=== PATIENT | female | born 1955 | race Caucasian/White ===

== ENCOUNTER → 2016-12-15 | Outpatient (CLI) | payer MEDICAID ==
[2016-12-15 10:36] VITALS: BP 180/89; PULSE 78; RESP 16; TEMP 98; BMI 34.3
[2016-12-15 12:58] LABS: CH 31.4; CHCM 33.4; HCT 41.3 % (34.0-46.0); HDW 2.29; HGB 13.4 gm/dL (11.4-16.0); MCH 30.5 pg (25.0-35.0); MCHC 32.3 g/dL (31.0-37.0); MCV 94.4 fL (80.0-100.0); Mean Platelet Volume 8.2; RBC 4.38 m/uL (3.80-5.40); RDW 13.1 % (11.5-15.5); WBC 7.1 k/uL (3.8-10.6)
[2016-12-15 13:06] LABS: Partial Thromboplastin Time 23.2 sec (22.0-30.0); Prothrombin Time 10.1 sec (9.0-12.0)
[2016-12-15 13:11] LABS: ALT 33 U/L (9-52); AST 20 U/L (14-36); Alkaline Phosphatase 113 U/L (38-126); Anion Gap 9 mmol/L; Blood Urea Nitrogen 16 mg/dL (7-17); Calcium 10.4 mg/dL (8.4-10.2); Carbon Dioxide 29 mmol/L (22-30); Chloride 107 mmol/L (98-107); Cholesterol 161 mg/dL (<200); Glucose 95 mg/dL (74-99); HDL Cholesterol 53 mg/dL (40-60); Iron 171 ug/dL (37-170); Magnesium 2.1 mg/dL (1.6-2.3); Non-African American GFR(MDRD) >60 (>60 ml/min/1.73 sqM); Phosphorous 3.8 mg/dL (2.5-4.5); Potassium 4.9 mmol/L (3.5-5.1); Sodium 145 mmol/L (137-145); Total Bilirubin 0.6 mg/dL (0.2-1.3); Total Protein 7.1 g/dL (6.3-8.2); Triglycerides 158 mg/dL (<150)
[2016-12-15 13:22] LABS: % Iron Saturation 57.4 % (20-50); Prealbumin 24 mg/dL (18-36); Total Iron Binding Capacity 298 ug/dL (265-497)
[2016-12-15 13:29] LABS: Hemoglobin A1C 5.4 % (4.2-6.1)
[2016-12-15 14:18] LABS: Vitamin B12 857 pg/mL (239-931)
[2016-12-20 18:36] LABS: Selenium 135 mcg/L (63-160)
--- NOTE | 2017-01-12 21:33 | P.PN ---
Progress Note - Text DATE OF SERVICE: 12/15/2016. CHIEF COMPLAINT: History of gastric bypass. HISTORY OF PRESENT ILLNESS: Zaynab Vazquez is a 61-year-old female who is status post Gregg-en-Y gastric bypass 06/15/2016. She is now 6 months out. At her height of 5 feet 4 inches, her ideal body weight is 144 pounds. Today she comes in weighing 200 pounds. Initially she was 260 pounds. She has maintained a 60 pound weight loss. Body mass index is reduced from 44.7 down to 34.4. BMI point reduction is 10. She has lost 13.2 pounds since her last visit 3 months ago. Percent excess weight loss is 52%. She reports losing her hair. She also reports generalized fatigue. Now she presents for further evaluation and management. PAST MEDICAL HISTORY: 1. Osteoarthritis. 2. Hypertension. 3. Dyslipidemia. 4. Irritable bowel syndrome. 5. Leukocytosis. 6. Fibromyalgia. 7. Stress urinary incontinence. 8. Hypothyroidism. 9. Obstructive sleep apnea. PAST SURGICAL HISTORY: 1. Excision of a skin lesions. 2. Partial thyroidectomy. 3. Tonsillectomy and adenoidectomy. 4. Cholecystectomy. 5. Umbilical hernia repair with mesh. 6. Colonoscopy. 7. Hemorrhoidectomy. 8. D&C. 9. Tubal ligation. 10. EGD 11. Right knee replacement. 12. Left ankle reconstruction. 13. Gregg-en-Y gastric bypass. MEDICATIONS: 1. Multivitamin. 2. Calcium citrate. 3. Iron. 4. Vitamin D. 5. Synthroid. 6. Celexa. 7. Ziac. ALLERGIES: Denies. SOCIAL HISTORY: Denies current tobacco use. FAMILY HISTORY: Denies any family history of cancers. Denies any Crohns disease or colitis in her family. She denies any lupus in her family. REVIEW OF SYSTEMS: CONSTITUTIONAL: Initial weight 260 pounds. Present weight of 200 pounds. Maintained weight loss 60 pounds in the last month. 52% excess weight. Body mass index reduced from 44.7 down to 34.4. Total BMI point reduction of 10 points. ENDOCRINE: She denies any blood sugar glucose intolerance. CARDIOVASCULAR: Resolution of hypertension. MUSCULOSKELETAL: Improved osteoarthritis of lower back including hips and knees. RESPIRATORY: Resolved obstructive sleep apnea. GASTROINTESTINAL: No reports of dumping syndrome. No reports of active gastroesophageal reflux disease. HEENT: Denies any troubles with vision other than wearing glasses. Wears caps and crowns. Denies any hearing problems. ENDOCRINE: Has hypothyroidism. Denies any active blood sugar glucose intolerance. : Denies any problems with bleeding between menses. She is postmenopausal, however. No reports of increasing in her frequency. NEURO: Denies any headaches or seizure disorders. PSYCH: Has history of depression; however, without suicidal ideation. HEMATOLOGIC: Denies any abnormal bruising or bleeding. Denies any prior history of DVT. PHYSICAL EXAM: VITAL SIGNS: 97.0, 78, 16, 180/89; 5 feet 4 inches, 200 pounds. Body mass index 34.4. ABDOMEN: Soft, nontender, nondistended. Mild hyperemia identified with panniculitis. GENERAL: Well-developed female in no acute distress. MUSCULOSKELETAL: No clubbing, cyanosis, or edema. HEENT: No scleral icterus. Extraocular movements grossly intact. Head is atraumatic and normocephalic. NECK: Supple without lymphadenopathy. CHEST: Unlabored respirations, equal bilateral excursions. CARDIOVASCULAR: Regular rate. NEURO: No focal or lateralizing signs. PSYCH: Appropriate affect. Alert and oriented to person, place, and time. LABS: Calcium is 10.4. Iron elevated at 171. Percent iron saturation elevated at 77.4. Triglycerides elevated at 158. ASSESSMENT: 1. Morbid obesity due to excess calories. 2. Body mass index is reduced from 44.7 down to 34.4. 3. Status post Gregg-en-Y gastric bypass. 4. Essential hypertension mild, resolved. 5. Obstructive sleep apnea, improved. 6. Secondary hyperparathyroidism. 7. Hypothyroidism. 8. Depression. 9. Dyslipidemia. 10. Osteoarthritis of the knee right knee. 11. Left ankle osteoarthritis. 12. Dietary surveillance and counseling. 13. Irritable bowel syndrome. 14. Fibromyalgia. 15. Stress urinary incontinence. 16. History of chronic diarrhea following cholecystectomy. 17. Secondary hyperparathyroidism. 18. Elevated calcium. 19. Elevated iron. 20. Hypertriglyceridemia. PLAN: 1. She has completed a bariatric metabolic panel. 2. She has hair loss and I have recommended taking biotin. 3. On exam, she has panniculitis for which nystatin powder was written on her behalf. 4. She reports generalized fatigue and this may also demonstrate some recurrent features of obstructive sleep apnea which may need further treatment. 5. Recommended follow-up 9 months postop otherwise in February 2017.
== END | disposition home or self-care (01) ==
LOC: BARWHC3 09:49
PROVIDERS: ATTEND Surgery Plastic and Reconstructive Surgery
DX: Z48.815 Encounter for surgical aftercare following surgery on the digestive system (principal); Z71.3 Dietary counseling and surveillance; E66.01 Morbid (severe) obesity due to excess calories; Z68.34 Body mass index [BMI] 34.0-34.9, adult; Z98.84 Bariatric surgery status
CPT/HCPCS: 80053; 80061; 82306; 82525; 82607; 82728; 82746; 83036; 83540; 83550; 83735; 83970; 84100; 84134; 84255; 84425; 84443; 84590; 84630; 85027; 85610; 85730; 99211

== ENCOUNTER → 2017-01-05 | Outpatient (CLI) | payer MEDICAID ==
[2017-01-05 10:57] VITALS: BP 137/78; PULSE 69; RESP 16; TEMP 98; BMI 34.4
--- NOTE | 2017-02-10 20:37 | P.PN ---
Progress Note - Text DATE OF SERVICE: 01/05/2017 CHIEF COMPLAINT: Follow-up gastric bypass. HISTORY OF PRESENT ILLNESS: Zaynab Gale is a 61-year-old female status post Gregg-en-Y gastric bypass on 06/15/2016. At her height of 5 feet 4 inches, her ideal body weight is 144 pounds. Today she comes with a body mass index of 34.4. Her highest weight in the program is 260 pounds. Today she comes in weighing 200 pounds. She has maintained 60 pounds weight loss in the last six months. Percent excess weight loss is 62%. She is still 56 pounds overweight. Initial body mass index is 44.7. She has complete resolution of obstructive sleep apnea, including diabetes type 2. Osteoarthritis is mildly improved. She denies any dysphagia. She reports troubles with her skin for her panniculitis. Her personal goal is to get down to at least 130 pounds. Now she presents for further evaluation and management. PAST MEDICAL HISTORY: 1. Osteoarthritis. 2. Hypertension. 3. Dyslipidemia. 4. Irritable bowel syndrome. 5. Leukocytosis. 6. Fibromyalgia. 7. Stress urinary incontinence. 8. Hypothyroidism. 9. Obstructive sleep apnea. PAST SURGICAL HISTORY: 1. Excision of a skin lesions. 2. Partial thyroidectomy. 3. Tonsillectomy and adenoidectomy. 4. Cholecystectomy. 5. Umbilical hernia repair with mesh. 6. Colonoscopy. 7. Hemorrhoidectomy. 8. D&C. 9. Tubal ligation. 10. EGD 11. Right knee replacement. 12. Left ankle reconstruction. 13. Status post Gregg-en-Y gastric bypass. MEDICATIONS: 1. Nystatin powder. 2. Multivitamin. 3. Synthroid. 4. Iron. 5. Celexa. 6. Vitamin D. 7. Calcium citrate. 8. Ziac. ALLERGIES: Denies. SOCIAL HISTORY: Denies current tobacco use. FAMILY HISTORY: Denies any family history of cancers. Denies any Crohns disease or colitis in her family. She denies any lupus in her family. REVIEW OF SYSTEMS: CONSTITUTIONAL: Maintained weight loss is 60 pounds. Percent excess weight loss is 52%. Highest weight loss of 260 pounds. [place] body weight of 144 pounds. At her height of 5 feet 4 inches, her ideal body weight is 144 pounds. Body mass index is 34.4. Today she comes in weighing 200 pounds. She has maintained 60 pounds weight loss in the last six months. She is 56 pounds overweight. Initial body mass index is 44.7. RESPIRATORY: Resolved obstructive sleep apnea. MUSCULOSKELETAL: Improvement in osteoarthritis. CARDIOVASCULAR: Decreased dose regarding her hypertension. GASTROINTESTINAL: No reports of dumping syndrome. No reports of food allergies. HEENT: Denies any troubles with vision other than wearing glasses. Wears caps and crowns. Denies any hearing problems. ENDOCRINE: Has hypothyroidism. Denies any active blood sugar glucose intolerance. : Denies any problems with bleeding between menses. She is postmenopausal, however. No reports of increasing in her frequency. NEURO: Denies any headaches or seizure disorders. PSYCH: Has history of depression; however, without suicidal ideation. HEMATOLOGIC: Denies any abnormal bruising or bleeding. Denies any prior history of DVT. PHYSICAL EXAM: VITAL SIGNS: 98.0, 69, 16, 137/78, 5 feet 4 inches; 200 pounds. Body mass index is 34.4. ABDOMEN: Soft. No palpable incisional hernias. MUSCULOSKELETAL: No clubbing, cyanosis, or edema. GENERAL: Well-developed female in no acute distress. HEENT: No scleral icterus. Extraocular movements grossly intact. Head is atraumatic and normocephalic. NECK: Supple without lymphadenopathy. CHEST: Unlabored respirations, equal bilateral excursions. CARDIOVASCULAR: Regular rate. NEURO: No focal or lateralizing signs. PSYCH: Appropriate affect. Alert and oriented to person, place, and time. ASSESSMENT: 1. Morbid obesity due to excess calories. 2. Body mass index reduced from 44.7 down to 34.4. 3. Status post Gregg-en-Y gastric bypass. 4. Essential hypertension mild, resolved. 5. Obstructive sleep apnea, improved. 6. Secondary hyperparathyroidism. 7. Hypothyroidism. 8. Depression. 9. Dyslipidemia. 10. Osteoarthritis of the knee right knee. 11. Left ankle osteoarthritis. 12. Dietary surveillance and counseling. 13. Irritable bowel syndrome. 14. Fibromyalgia. 15. Stress urinary incontinence. 16. History of chronic diarrhea following cholecystectomy. 17. Secondary hyperparathyroidism. 18. Osteoarthritis bilateral feet improved. 19. Osteoarthritis bilateral hips improved. 20. Diabetes type 2, resolved. 21. Hypertensive heart disease, improved. PLAN: 1. Recommend bariatric metabolic panel. 2. With her plateau, this is to be expected as she is 6 months out. 3. I have gone over dietary surveillance and counseling where she is eating moderate amount of carbs. 4. Also may benefit from re-evaluation with bariatric dietitian. ADDENDUM: LABS: Hemoglobin normal at 13.4. Hemoglobin A1c is normal at 5.4%. Calcium elevated 10.4. Iron was elevated at 171. Percent iron saturation elevated at 57.4. Triglycerides elevated at 158. No evidence of nutritional deficiencies. Overall, her bariatric metabolic panel demonstrates excellent nutrition. No additional supplements need at this time. Recommend follow-up at her 9 month postop visit; otherwise for March 2017.
== END | disposition home or self-care (01) ==
LOC: BARWHC3 10:32
PROVIDERS: ATTEND Surgery Plastic and Reconstructive Surgery
DX: Z48.815 Encounter for surgical aftercare following surgery on the digestive system (principal); E66.01 Morbid (severe) obesity due to excess calories; Z68.34 Body mass index [BMI] 34.0-34.9, adult; Z79.899 Other long term (current) drug therapy; Z98.84 Bariatric surgery status; G47.33 Obstructive sleep apnea (adult) (pediatric); M19.072 Primary osteoarthritis, left ankle and foot; M19.071 Primary osteoarthritis, right ankle and foot; I11.9 Hypertensive heart disease without heart failure; Z71.3 Dietary counseling and surveillance; M79.3 Panniculitis, unspecified
CPT/HCPCS: 99211

== ENCOUNTER → 2017-03-16 | Outpatient (CLI) | payer MEDICAID ==
[2017-03-16 10:08] VITALS: BP 137/83; PULSE 60; RESP 20; TEMP 97.9; BMI 32.9
[2017-03-16 11:31] LABS: CH 32.2; CHCM 33.6; HCT 44.6 % (34.0-46.0); HDW 2.15; HGB 14.3 gm/dL (11.4-16.0); MCH 30.7 pg (25.0-35.0); MCV 96.2 fL (80.0-100.0); Mean Platelet Volume 7.8; RBC 4.64 m/uL (3.80-5.40); WBC 8.5 k/uL (3.8-10.6)
[2017-03-16 11:32] LABS: Partial Thromboplastin Time 22.7 sec (22.0-30.0); Prothrombin Time 10.1 sec (9.0-12.0)
[2017-03-16 11:38] LABS: ALT 39 U/L (9-52); AST 23 U/L (14-36); Alkaline Phosphatase 118 U/L (38-126); Anion Gap 11 mmol/L; Blood Urea Nitrogen 23 mg/dL (7-17); Calcium 10.2 mg/dL (8.4-10.2); Carbon Dioxide 26 mmol/L (22-30); Chloride 104 mmol/L (98-107); Cholesterol 164 mg/dL (<200); Glucose 91 mg/dL (74-99); HDL Cholesterol 56 mg/dL (40-60); Iron 149 ug/dL (37-170); Magnesium 1.9 mg/dL (1.6-2.3); Non-African American GFR(MDRD) >60 (>60 ml/min/1.73 sqM); Phosphorous 3.8 mg/dL (2.5-4.5); Potassium 4.3 mmol/L (3.5-5.1); Sodium 141 mmol/L (137-145); Total Bilirubin 0.6 mg/dL (0.2-1.3); Total Protein 6.9 g/dL (6.3-8.2); Triglycerides 158 mg/dL (<150)
[2017-03-16 11:50] LABS: Prealbumin 25 mg/dL (18-36); Total Iron Binding Capacity 298 ug/dL (265-497)
[2017-03-16 12:44] LABS: Vitamin B12 799 pg/mL (239-931)
[2017-03-16 13:12] LABS: Hemoglobin A1C 5.2 % (4.2-6.1)
[2017-03-21 16:17] LABS: Selenium 141 mcg/L (63-160)
--- NOTE | 2017-03-29 17:19 | P.PN ---
Progress Note - Text DATE OF SERVICE: 03/16/2017 CHIEF COMPLAINT: Follow-up gastric bypass. HISTORY OF PRESENT ILLNESS: Zaynab Gale is a 61-year-old female status post Gregg-en-Y gastric bypass on 06/15/2016. Since her last visit, she lost another 9 pounds in 2 months. She reports exercising more. She is also eating more. She is drinking mostly water. Now she presents for her 9 month follow-up. She also comes in with concern of panniculitis. At her height of 5 feet 4 inches, her ideal body weight is 144 pounds. Today she comes with a body mass index of 32.9. Her highest weight in the program is 260 pounds. Today she comes in weighing 191 pounds. She has maintained 69 pounds weight loss. Percent excess weight loss is 59%. She is 47 pounds overweight. Initial body mass index is 44.7. She has complete resolution of obstructive sleep apnea, including diabetes type 2. Osteoarthritis is improved. She denies any dysphagia. PAST MEDICAL HISTORY: 1. Osteoarthritis. 2. Hypertension. 3. Dyslipidemia. 4. Irritable bowel syndrome. 5. Leukocytosis. 6. Fibromyalgia. 7. Stress urinary incontinence. 8. Hypothyroidism. 9. Obstructive sleep apnea. PAST SURGICAL HISTORY: 1. Excision of a skin lesions. 2. Partial thyroidectomy. 3. Tonsillectomy and adenoidectomy. 4. Cholecystectomy. 5. Umbilical hernia repair with mesh. 6. Colonoscopy. 7. Hemorrhoidectomy. 8. D&C. 9. Tubal ligation. 10. EGD 11. Right knee replacement. 12. Left ankle reconstruction. 13. Status post Gregg-en-Y gastric bypass. MEDICATIONS: 1. Nystatin powder. 2. Multivitamin. 3. Synthroid. 4. Iron. 5. Celexa. 6. Vitamin D. 7. Calcium citrate. 8. Ziac. ALLERGIES: Denies. SOCIAL HISTORY: Denies current tobacco use. FAMILY HISTORY: Denies any family history of cancers. Denies any Crohns disease or colitis in her family. She denies any lupus in her family. REVIEW OF SYSTEMS: CONSTITUTIONAL: At her height of 5 feet 4 inches, her ideal body weight is 144 pounds. Today she comes with a body mass index of 32.9. Her highest weight in the program is 260 pounds. Today she comes in weighing 191 pounds. She has maintained 69 pounds weight loss. Percent excess weight loss is 59%. She is 47 pounds overweight. Initial body mass index is 44.7. RESPIRATORY: Resolved obstructive sleep apnea. No pneumonia. MUSCULOSKELETAL: Improvement in osteoarthritis. Improve lower back pain. CARDIOVASCULAR: Decreased dose regarding her hypertension. No heart attack. GASTROINTESTINAL: No reports of dumping syndrome. No reports of food allergies. HEENT: Denies any troubles with vision other than wearing glasses. Wears caps and crowns. Denies any hearing problems. ENDOCRINE: Has hypothyroidism. Denies any active blood sugar glucose intolerance. : Denies any problems with bleeding between menses. She is postmenopausal, however. No reports of increasing in her frequency. NEURO: Denies any headaches or seizure disorders. PSYCH: Has history of depression; however, without suicidal ideation. HEMATOLOGIC: Denies any abnormal bruising or bleeding. Denies any prior history of DVT. PHYSICAL EXAM: VITAL SIGNS: 5 feet 4 inches; 191 pounds. Body mass index is 32.9 Vital Signs Temp 97.9 F 03/16/17 09:59 Pulse 60 03/16/17 09:59 Resp 20 03/16/17 09:59 BP 137/83 03/16/17 09:59 Pulse Ox ABDOMEN: Soft. No palpable incisional hernias. Nontender. MUSCULOSKELETAL: No clubbing, cyanosis, or edema. GENERAL: Well-developed female in no acute distress. HEENT: No scleral icterus. Extraocular movements grossly intact. Head is atraumatic and normocephalic. NECK: Supple without lymphadenopathy. CHEST: Unlabored respirations, equal bilateral excursions. CARDIOVASCULAR: Regular rate. Regular rhythm. NEURO: No focal or lateralizing signs. Cranial nerves II-12 intact. PSYCH: Appropriate affect. Alert and oriented to person, place, and time. LABS: Laboratory Last Values WBC 8.5 k/uL (3.8-10.6) 03/16/17 10:55 RBC 4.64 m/uL (3.80-5.40) 03/16/17 10:55 Hgb 14.3 gm/dL (11.4-16.0) 03/16/17 10:55 Hct 44.6 % (34.0-46.0) 03/16/17 10:55 MCV 96.2 fL (80.0-100.0) 03/16/17 10:55 MCH 30.7 pg (25.0-35.0) 03/16/17 10:55 MCHC 32.0 g/dL (31.0-37.0) 03/16/17 10:55 RDW 13.0 % (11.5-15.5) 03/16/17 10:55 Plt Count 327 k/uL (150-450) 03/16/17 10:55 PT 10.1 sec (9.0-12.0) 03/16/17 10:55 INR 1.0 (<1.1) 03/16/17 10:55 APTT 22.7 sec (22.0-30.0) 03/16/17 10:55 Sodium 141 mmol/L (137-145) 03/16/17 10:55 Potassium 4.3 mmol/L (3.5-5.1) 03/16/17 10:55 Chloride 104 mmol/L (98-107) 03/16/17 10:55 Carbon Dioxide 26 mmol/L (22-30) 03/16/17 10:55 Anion Gap 11 mmol/L 03/16/17 10:55 BUN 23 mg/dL (7-17) H 03/16/17 10:55 Creatinine 0.70 mg/dL (0.52-1.04) 03/16/17 10:55 Est GFR (MDRD) Af Amer >60 (>60 ml/min/1.73 sqM) 03/16/17 10:55 Est GFR (MDRD) Non-Af >60 (>60 ml/min/1.73 sqM) 03/16/17 10:55 Glucose 91 mg/dL (74-99) 03/16/17 10:[address] Glu mg/dL 103 mg/dL 03/16/17 10:55 Hemoglobin A1c 5.2 % (4.2-6.1) 03/16/17 10:55 Calcium 10.2 mg/dL (8.4-10.2) 03/16/17 10:55 Phosphorus 3.8 mg/dL (2.5-4.5) 03/16/17 10:55 Magnesium 1.9 mg/dL (1.6-2.3) 03/16/17 10:55 Iron 149 ug/dL (37-170) 03/16/17 10:55 TIBC 298 ug/dL (265-497) 03/16/17 10:55 % Saturation 50.0 % (20-50) 03/16/17 10:55 Ferritin 102 ng/mL (11-264) 03/16/17 10:55 Total Bilirubin 0.6 mg/dL (0.2-1.3) 03/16/17 10:55 AST 23 U/L (14-36) 03/16/17 10:55 ALT 39 U/L (9-52) 03/16/17 10:55 Alkaline Phosphatase 118 U/L (38-126) 03/16/17 10:55 Total Protein 6.9 g/dL (6.3-8.2) 03/16/17 10:55 Albumin 4.3 g/dL (3.5-5.0) 03/16/17 10:55 Prealbumin 25 mg/dL (18-36) 03/16/17 10:55 Triglycerides 158 mg/dL (<150) H 03/16/17 10:55 Cholesterol 164 mg/dL (<200) 03/16/17 10:55 LDL Cholesterol, Calc 76 mg/dL (0-99) 03/16/17 10:55 HDL Cholesterol 56 mg/dL (40-60) 03/16/17 10:55 Vitamin A 57 ug/dL (38-106) 03/16/17 10:55 Vitamin B1 57 ug/L (38-122) 03/16/17 10:55 Vitamin B12 799 pg/mL (239-931) 03/16/17 10:55 Vitamin D 25-Hydroxy 48.4 ng/mL (30.0-100.0) 03/16/17 10:55 Folate 13.00 ng/mL (>2.75) 03/16/17 10:55 TSH 1.570 mIU/L (0.465-4.680) 03/16/17 10:55 PTH Intact 74.5 pg/mL (14.0-72.0) H 03/16/17 10:55 Copper 1200 ug/L (810-1990) 03/16/17 10:55 Selenium 141 mcg/L (63-160) 03/16/17 10:55 Zinc 78 ug/dL (60-130) 03/16/17 10:55 ASSESSMENT: 1. Morbid obesity due to excess calories. 2. Body mass index reduced from 44.7 down to 32.9. 3. Status post Gregg-en-Y gastric bypass. 4. Essential hypertension, resolved. 5. Obstructive sleep apnea, resolved. 6. Secondary hyperparathyroidism. 7. Hypothyroidism. 8. Depression. 9. Dyslipidemia. 10. Osteoarthritis of the right knee, improved. 11. Left ankle osteoarthritis, improved. 12. Dietary surveillance and counseling. 13. Irritable bowel syndrome. 14. Fibromyalgia. 15. Stress urinary incontinence, improved. 16. History of chronic diarrhea following cholecystectomy. 17. Diabetes type 2, resolved. 18. Osteoarthritis bilateral feet improved. 19. Osteoarthritis bilateral hips improved. PLAN: 1. Recommend bariatric metabolic panel. 2. She may undergo a blood drive per patient request. 3. Continue protein intake over 70 g. 4. On exam, she has panniculitis. Continue Nystatin powder. 5. She has elevated iron under previous and current labs. Also will benefit from blood drive. 6. Follow-up, May 2017, 1 year anniversary.
== END | disposition home or self-care (01) ==
LOC: BARWHC3 09:02
PROVIDERS: ATTEND Surgery Plastic and Reconstructive Surgery
DX: Z09 Encounter for follow-up examination after completed treatment for conditions other than malignant neoplasm (principal); Z98.84 Bariatric surgery status; E66.01 Morbid (severe) obesity due to excess calories; Z68.32 Body mass index [BMI] 32.0-32.9, adult; N25.81 Secondary hyperparathyroidism of renal origin; E03.9 Hypothyroidism, unspecified; F32.9 Major depressive disorder, single episode, unspecified; E78.5 Hyperlipidemia, unspecified; M17.11 Unilateral primary osteoarthritis, right knee; M19.072 Primary osteoarthritis, left ankle and foot; K58.9 Irritable bowel syndrome, unspecified; M79.7 Fibromyalgia; N39.46 Mixed incontinence; M16.0 Bilateral primary osteoarthritis of hip; M19.071 Primary osteoarthritis, right ankle and foot; Z79.899 Other long term (current) drug therapy; E21.1 Secondary hyperparathyroidism, not elsewhere classified; E89.1 Postprocedural hypoinsulinemia; D50.8 Other iron deficiency anemias; K90.89 Other intestinal malabsorption; E44.0 Moderate protein-calorie malnutrition; E55.9 Vitamin D deficiency, unspecified; K74.1 Hepatic sclerosis; N19 Unspecified kidney failure; K50.90 Crohn's disease, unspecified, without complications
CPT/HCPCS: 36415; 80053; 80061; 82306; 82525; 82607; 82728; 82746; 83036; 83540; 83550; 83735; 83970; 84100; 84134; 84255; 84425; 84443; 84590; 84630; 85027; 85610; 85730; 99211

== ENCOUNTER → 2017-06-01 | Outpatient (CLI) | payer MEDICAID ==
[2017-06-01 10:07] VITALS: BMI 32.8
[2017-06-01 10:30] VITALS: BP 122/78; PULSE 58; RESP 16; TEMP 98.1
[2017-06-01 12:04] LABS: CHCM 33.6; HCT 38.3 % (34.0-46.0); HDW 2.28; MCH 31.3 pg (25.0-35.0); MCHC 33.8 g/dL (31.0-37.0); MCV 92.5 fL (80.0-100.0); Mean Platelet Volume 7.5; RBC 4.14 m/uL (3.80-5.40); RDW 12.7 % (11.5-15.5); WBC 7.5 k/uL (3.8-10.6)
[2017-06-01 12:18] LABS: Partial Thromboplastin Time 23.9 sec (22.0-30.0)
[2017-06-01 12:20] LABS: ALT 38 U/L (9-52); AST 25 U/L (14-36); Alkaline Phosphatase 105 U/L (38-126); Anion Gap 7 mmol/L; Blood Urea Nitrogen 14 mg/dL (7-17); Calcium 9.9 mg/dL (8.4-10.2); Carbon Dioxide 29 mmol/L (22-30); Chloride 103 mmol/L (98-107); Cholesterol 167 mg/dL (<200); Glucose 90 mg/dL (74-99); HDL Cholesterol 50 mg/dL (40-60); Iron 155 ug/dL (37-170); Magnesium 1.9 mg/dL (1.6-2.3); Non-African American GFR(MDRD) >60 (>60 ml/min/1.73 sqM); Phosphorus 3.6 mg/dL (2.5-4.5); Potassium 3.9 mmol/L (3.5-5.1); Sodium 139 mmol/L (137-145); Total Bilirubin 0.6 mg/dL (0.2-1.3); Total Protein 6.8 g/dL (6.3-8.2)
[2017-06-01 12:28] LABS: % Iron Saturation 52.5 % (20-50); Total Iron Binding Capacity 295 ug/dL (265-497)
[2017-06-01 13:07] LABS: Vitamin B12 870 pg/mL (239-931)
[2017-06-01 18:42] LABS: Hemoglobin A1C 5.6 % (4.2-6.1)
[2017-06-07 18:31] LABS: Selenium 118 mcg/L (63-160)
--- NOTE | 2017-06-24 21:46 | P.PN ---
Progress Note - Text DATE OF SERVICE: 06/01/2017 CHIEF COMPLAINT: Follow-up gastric bypass. HISTORY OF PRESENT ILLNESS: Zaynab Gale is a 61-year-old female status post Gregg-en-Y gastric bypass on 06/15/2016. Since her last visit, she lost another 1 pounds in 3 months. Now she presents for her 1 year follow- up. She is concern for her slow weight loss. She denies abdominal pain. She does report foul-smelling flatulence. She is stress eating including eating high carbohydrate foods such as candy bars and chips. Separately, she reports severe depression with thoughts of attempted suicide. At her height of 5 feet 4 inches, her ideal body weight is 144 pounds. Today she comes with a body mass index of 32.8. Her highest weight in the program is 260 pounds. Today she comes in weighing 191 pounds. She has maintained 69 pounds weight loss. Percent excess weight loss is 60%. She is 47 pounds overweight. Initial body mass index is 44.7. She has complete resolution of obstructive sleep apnea, including diabetes type 2. Osteoarthritis is improved. PAST MEDICAL HISTORY: 1. Osteoarthritis. 2. Hypertension. 3. Dyslipidemia. 4. Irritable bowel syndrome. 5. Leukocytosis. 6. Fibromyalgia. 7. Stress urinary incontinence. 8. Hypothyroidism. 9. Obstructive sleep apnea. 10. Depression. PAST SURGICAL HISTORY: 1. Excision of a skin lesions. 2. Partial thyroidectomy. 3. Tonsillectomy and adenoidectomy. 4. Cholecystectomy. 5. Umbilical hernia repair with mesh. 6. Colonoscopy. 7. Hemorrhoidectomy. 8. D&C. 9. Tubal ligation. 10. EGD 11. Right knee replacement. 12. Left ankle reconstruction. 13. Status post Gregg-en-Y gastric bypass. MEDICATIONS: 1. Nystatin powder. 2. Multivitamin. 3. Synthroid. 4. Iron. 5. Celexa. 6. Vitamin D. 7. Calcium citrate. 8. Ziac. ALLERGIES: Denies. SOCIAL HISTORY: Denies current tobacco use. FAMILY HISTORY: Denies any family history of cancers. Denies any Crohns disease or colitis in her family. She denies any lupus in her family. REVIEW OF SYSTEMS: CONSTITUTIONAL: At her height of 5 feet 4 inches, her ideal body weight is 144 pounds. Today she comes with a body mass index of 32.8. Her highest weight in the program is 260 pounds. Today she comes in weighing 191 pounds. She has maintained 69 pounds weight loss. Percent excess weight loss is 60%. She is 47 pounds overweight. Initial body mass index is 44.7. RESPIRATORY: Resolved obstructive sleep apnea. No pneumonia. MUSCULOSKELETAL: Improvement in osteoarthritis. Improve lower back pain. CARDIOVASCULAR: Decreased dose regarding her hypertension. No heart attack. GASTROINTESTINAL: No reports of dumping syndrome. No reports of food allergies. HEENT: Denies any troubles with vision other than wearing glasses. Wears caps and crowns. Denies any hearing problems. No dysphagia. ENDOCRINE: Has hypothyroidism. Denies any active blood sugar glucose intolerance. : Denies any problems with bleeding between menses. She is postmenopausal, however. No reports of increasing in her frequency. NEURO: Denies any headaches or seizure disorders. PSYCH: Has history of depression. She reports suicidal thoughts. She had past attempts of suicide. HEMATOLOGIC: Denies any abnormal bruising or bleeding. Denies any prior history of DVT. SKIN: No rashes skin cancer. PHYSICAL EXAM: VITAL SIGNS: 5 feet 4 inches; 191 pounds. Body mass index is 32.8 Vital Signs Temp 98.1 F 06/01/17 10:25 Pulse 58 L 06/01/17 10:25 Resp 16 06/01/17 10:25 BP 122/78 06/01/17 10:25 Pulse Ox ABDOMEN: Soft. No palpable incisional hernias. Nontender. MUSCULOSKELETAL: No clubbing, cyanosis, or edema. GENERAL: Well-developed female in no acute distress. HEENT: No scleral icterus. Extraocular movements grossly intact. Head is atraumatic and normocephalic. NECK: Supple without lymphadenopathy. CHEST: Unlabored respirations, equal bilateral excursions. CARDIOVASCULAR: Regular rate. Regular rhythm. NEURO: No focal or lateralizing signs. Cranial nerves II-12 intact. PSYCH: Appropriate affect. Alert and oriented to person, place, and time. SKIN: Well perfused. Good skin turgor. LABS: Laboratory Last Values WBC 7.5 k/uL (3.8-10.6) 06/01/17 11:30 RBC 4.14 m/uL (3.80-5.40) 06/01/17 11:30 Hgb 13.0 gm/dL (11.4-16.0) 06/01/17 11:30 Hct 38.3 % (34.0-46.0) 06/01/17 11:30 MCV 92.5 fL (80.0-100.0) 06/01/17 11:30 MCH 31.3 pg (25.0-35.0) 06/01/17 11:30 MCHC 33.8 g/dL (31.0-37.0) 06/01/17 11:30 RDW 12.7 % (11.5-15.5) 06/01/17 11:30 Plt Count 327 k/uL (150-450) 06/01/17 11:30 PT 10.0 sec (9.0-12.0) 06/01/17 11:30 INR 1.0 (<1.2) 06/01/17 11:30 APTT 23.9 sec (22.0-30.0) 06/01/17 11:30 Sodium 139 mmol/L (137-145) 06/01/17 11:30 Potassium 3.9 mmol/L (3.5-5.1) 06/01/17 11:30 Chloride 103 mmol/L (98-107) 06/01/17 11:30 Carbon Dioxide 29 mmol/L (22-30) 06/01/17 11:30 Anion Gap 7 mmol/L 06/01/17 11:30 BUN 14 mg/dL (7-17) 06/01/17 11:30 Creatinine 0.70 mg/dL (0.52-1.04) 06/01/17 11:30 Est GFR (MDRD) Af Amer >60 (>60 ml/min/1.73 sqM) 06/01/17 11:30 Est GFR (MDRD) Non-Af >60 (>60 ml/min/1.73 sqM) 06/01/17 11:30 Glucose 90 mg/dL (74-99) 06/01/17 11:[address] Glu mg/dL 114 mg/dL 06/01/17 11:30 Hemoglobin A1c 5.6 % (4.2-6.1) 06/01/17 11:30 Calcium 9.9 mg/dL (8.4-10.2) 06/01/17 11:30 Phosphorus 3.6 mg/dL (2.5-4.5) 06/01/17 11:30 Magnesium 1.9 mg/dL (1.6-2.3) 06/01/17 11:30 Iron 155 ug/dL (37-170) 06/01/17 11:30 TIBC 295 ug/dL (265-497) 06/01/17 11:30 % Saturation 52.5 % (20-50) H 06/01/17 11:30 Ferritin 139.8 ng/mL (10.0-291.0) 06/01/17 11:30 Total Bilirubin 0.6 mg/dL (0.2-1.3) 06/01/17 11:30 AST 25 U/L (14-36) 06/01/17 11:30 ALT 38 U/L (9-52) 06/01/17 11:30 Alkaline Phosphatase 105 U/L (38-126) 06/01/17 11:30 Total Protein 6.8 g/dL (6.3-8.2) 06/01/17 11:30 Albumin 4.2 g/dL (3.5-5.0) 06/01/17 11:30 Prealbumin 24.0 mg/dL (18.0-42.0) 06/01/17 11:30 Triglycerides 142 mg/dL (<150) 06/01/17 11:30 Cholesterol 167 mg/dL (<200) 06/01/17 11:30 LDL Cholesterol, Calc 89 mg/dL (0-99) 06/01/17 11:30 HDL Cholesterol 50 mg/dL (40-60) 06/01/17 11:30 Vitamin A 57 ug/dL (38-106) 06/01/17 11:30 Vitamin B1 63 ug/L (38-122) 06/01/17 11:30 Vitamin B12 870 pg/mL (239-931) 06/01/17 11:30 Vitamin D 25-Hydroxy 45.2 ng/mL (30.0-100.0) 06/01/17 11:30 Folate 19.0 ng/mL 06/01/17 11:30 TSH 1.990 mIU/L (0.465-4.680) 06/01/17 11:30 PTH Intact 72.2 pg/mL (14.0-72.0) H 06/01/17 11:30 Copper 1375 ug/L (810-1990) 06/01/17 11:30 Selenium 118 mcg/L (63-160) 06/01/17 11:30 Zinc 75 ug/dL (60-130) 06/01/17 11:30 ASSESSMENT: 1. Morbid obesity due to excess calories. 2. Body mass index reduced from 44.7 down to 32.8. 3. Status post Gregg-en-Y gastric bypass. 4. Essential hypertension, resolved. 5. Obstructive sleep apnea, resolved. 6. Secondary hyperparathyroidism. 7. Hypothyroidism. 8. Depression. 9. Dyslipidemia. 10. Osteoarthritis of the right knee, improved. 11. Left ankle osteoarthritis, improved. 12. Dietary surveillance and counseling. 13. Irritable bowel syndrome. 14. Fibromyalgia. 15. Stress urinary incontinence, improved. 16. History of chronic diarrhea following cholecystectomy. 17. Diabetes type 2, resolved. 18. Osteoarthritis bilateral feet improved. 19. Osteoarthritis bilateral hips improved. PLAN: 1. She has completed a bariatric metabolic panel in 1 year anniversary. Mild secondary hyperparathyroidism identified Recommend calcium intake of 1200 mg daily. 2. She reports moderate depression including thoughts of suicide. Recommend evaluation with therapist for antidepressant. 3. She reports foul flatulence. Adjustment of diet to decrease sulfur foods advised. 4. Recommended follow-up with the [facility] on yearly basis.
== END | disposition home or self-care (01) ==
LOC: BARWHC3 09:14
PROVIDERS: ATTEND Surgery Plastic and Reconstructive Surgery
DX: E66.01 Morbid (severe) obesity due to excess calories (principal); E21.1 Secondary hyperparathyroidism, not elsewhere classified; E03.9 Hypothyroidism, unspecified; F32.9 Major depressive disorder, single episode, unspecified; E78.5 Hyperlipidemia, unspecified; K58.9 Irritable bowel syndrome, unspecified; M79.7 Fibromyalgia; Z71.3 Dietary counseling and surveillance; Z68.32 Body mass index [BMI] 32.0-32.9, adult; Z98.84 Bariatric surgery status
CPT/HCPCS: 80053; 80061; 82306; 82525; 82607; 82728; 82746; 83036; 83540; 83550; 83735; 83970; 84100; 84134; 84255; 84425; 84443; 84590; 84630; 85027; 85610; 85730; 97803; 99211

== ENCOUNTER → 2017-08-03 | Outpatient (CLI) | payer MEDICAID ==
[2017-08-03 10:31] VITALS: BP 170/81; PULSE 63; TEMP 97.1; BMI 33.3
--- NOTE | 2017-10-05 20:55 | P.PN ---
Subjective Progress Note Date: 08/03/17 DATE OF SERVICE: 08/03/2017 CHIEF COMPLAINT: Follow-up gastric bypass. HISTORY OF PRESENT ILLNESS: Zaynab Gale is a 61-year-old female status post Gregg-en-Y gastric bypass on 06/15/2016. She is over 1 year out. Since her last visit 2 months ago, she gained 4 pounds. She reports chronic inflammation. No reports of abdominal pain. No reports of diarrhea. At her height of 5 feet 4 inches, her ideal body weight is 144 pounds. Today she comes with a body mass index of 33.4. Her highest weight in the program is 260 pounds. Today she comes in weighing 194 pounds. She has maintained 66 pounds weight loss. Percent excess weight loss is 57%. She is 50 pounds overweight. Initial body mass index was 44.7. She is seeking to lose another 30 pounds. PAST MEDICAL HISTORY: 1. Osteoarthritis. 2. Hypertension. 3. Dyslipidemia. 4. Irritable bowel syndrome. 5. Leukocytosis. 6. Fibromyalgia. 7. Stress urinary incontinence. 8. Hypothyroidism. 9. Obstructive sleep apnea. 10. Depression. PAST SURGICAL HISTORY: 1. Excision of a skin lesions. 2. Partial thyroidectomy. 3. Tonsillectomy and adenoidectomy. 4. Cholecystectomy. 5. Umbilical hernia repair with mesh. 6. Colonoscopy. 7. Hemorrhoidectomy. 8. D&C. 9. Tubal ligation. 10. EGD 11. Right knee replacement. 12. Left ankle reconstruction. 13. Status post Gregg-en-Y gastric bypass. MEDICATIONS: 1. Nystatin powder. 2. Multivitamin. 3. Synthroid. 4. Iron. 5. Celexa. 6. Vitamin D. 7. Calcium citrate. 8. Ziac. ALLERGIES: Denies. SOCIAL HISTORY: Denies current tobacco use. FAMILY HISTORY: Denies any family history of cancers. Denies any Crohns disease or colitis in her family. She denies any lupus in her family. REVIEW OF SYSTEMS: CONSTITUTIONAL: At her height of 5 feet 4 inches, her ideal body weight is 144 pounds. Today she comes with a body mass index of 32.8. Her highest weight in the program is 260 pounds. Today she comes in weighing 191 pounds. She has maintained 69 pounds weight loss. Percent excess weight loss is 60%. She is 47 pounds overweight. Initial body mass index is 44.7. RESPIRATORY: Resolved obstructive sleep apnea. No pneumonia. MUSCULOSKELETAL: Improvement in osteoarthritis. Improve lower back pain. CARDIOVASCULAR: Decreased dose regarding her hypertension. No heart attack. GASTROINTESTINAL: No reports of dumping syndrome. No reports of food allergies. HEENT: Denies any troubles with vision other than wearing glasses. Wears caps and crowns. Denies any hearing problems. No dysphagia. ENDOCRINE: Has hypothyroidism. Denies any active blood sugar glucose intolerance. : Denies any problems with bleeding between menses. She is postmenopausal, however. No reports of increasing in her frequency. NEURO: Denies any headaches or seizure disorders. PSYCH: Has history of depression. She reports suicidal thoughts. She had past attempts of suicide. HEMATOLOGIC: Denies any abnormal bruising or bleeding. Denies any prior history of DVT. SKIN: No rashes skin cancer. PHYSICAL EXAM: VITAL SIGNS: 5 feet 4 inches; 194 pounds. Body mass index is 33.4 Vital Signs Temp 97.1 F L 08/03/17 10:29 Pulse 63 08/03/17 10:29 Resp BP 170/81 08/03/17 10:29 Pulse Ox ABDOMEN: Soft. No palpable incisional hernias. Nontender. MUSCULOSKELETAL: No clubbing, cyanosis, or edema. GENERAL: Well-developed female in no acute distress. HEENT: No scleral icterus. Extraocular movements grossly intact. Head is atraumatic and normocephalic. NECK: Supple without lymphadenopathy. CHEST: Unlabored respirations, equal bilateral excursions. CARDIOVASCULAR: Regular rate. Regular rhythm. NEURO: No focal or lateralizing signs. Cranial nerves II-12 intact. PSYCH: Appropriate affect. Alert and oriented to person, place, and time. SKIN: Well perfused. Good skin turgor. LABS: Elevated PTH. ASSESSMENT: 1. Morbid obesity due to excess calories. 2. Body mass index reduced from 44.7 down to 33.4. 3. Status post Gregg-en-Y gastric bypass. 4. Essential hypertension, resolved. 5. Obstructive sleep apnea, resolved. 6. Secondary hyperparathyroidism. 7. Hypothyroidism. 8. Depression. 9. Dyslipidemia. 10. Osteoarthritis of the right knee, improved. 11. Left ankle osteoarthritis, improved. 12. Dietary surveillance and counseling. 13. Irritable bowel syndrome. 14. Fibromyalgia. 15. Stress urinary incontinence, improved. 16. Diabetes type 2, resolved. 17. Osteoarthritis bilateral feet improved. 18. Osteoarthritis bilateral hips improved. PLAN: 1. Her overall nutrition is adequate. 2. Recommend increased calcium intake for secondary hyperparathyroidism. 3. Recommend evaluation with bariatric dietitian for additional weight loss. 4. Minimum follow-up at the bariatric center in 1 year. 5. Recommend increased exercise. 6. Inflammation free diet was reviewed to treat her chronic pain. Objective - Vital Signs Vital signs: Vital Signs Temp 97.1 F L 08/03/17 10:29 Pulse 63 08/03/17 10:29 Resp BP 170/81 08/03/17 10:29 Pulse Ox Intake & Output 08/02/17 08/03/17 08/03/17 18:59 06:59 18:59 Weight 88.224 kg
== END | disposition home or self-care (01) ==
LOC: BARWHC3 09:18
PROVIDERS: ATTEND Surgery Plastic and Reconstructive Surgery
DX: Z09 Encounter for follow-up examination after completed treatment for conditions other than malignant neoplasm (principal); E66.01 Morbid (severe) obesity due to excess calories; E21.3 Hyperparathyroidism, unspecified; E03.9 Hypothyroidism, unspecified; F32.9 Major depressive disorder, single episode, unspecified; E78.5 Hyperlipidemia, unspecified; M17.11 Unilateral primary osteoarthritis, right knee; M19.071 Primary osteoarthritis, right ankle and foot; K58.9 Irritable bowel syndrome, unspecified; M79.7 Fibromyalgia; N39.3 Stress incontinence (female) (male); M19.072 Primary osteoarthritis, left ankle and foot; M16.0 Bilateral primary osteoarthritis of hip; Z68.33 Body mass index [BMI] 33.0-33.9, adult; Z71.3 Dietary counseling and surveillance; Z79.899 Other long term (current) drug therapy; Z98.84 Bariatric surgery status
CPT/HCPCS: 99211

== ENCOUNTER → 2018-03-20 | Outpatient (CLI) | payer BC ==
--- NOTE | 2018-03-20 11:11 | CTL ---
EXAMINATION TYPE: CT Low Dose Lung DATE OF EXAM ORDERED: 03/20/2018 HISTORY: Long-term tobacco use. Lung cancer screening. Quit smoking [address] DLP: [address] CTDI: 3.02 mGy Automated exposure control for dose reduction was used. SCREENING VISIT: Initial study COMPARISON: None TECHNIQUE: Low dose computed tomography scan was performed through the chest at 1 mm thick sections a nd reconstructed images in the coronal plane at [address] DIAGNOSTIC QUALITY: Satisfactory FINDINGS: LUNG NODULES: Present, detailed below: Right lung a nodule with a size of 4 x 3 mm axial image 59. Left lung a nodule with a size of 5 x 4 mm on axial image 167. LUNGS: COPD: Severity: Minimal Fibrosis: Severity: Mild to moderate linear scarring in both bases Lymph nodes: No suspicious greater than 1 cm Other findings: No additional finding. BILATERAL PLEURAL SPACE: Effusion: None Calcification: None Thickening: None Pneumothorax: None HEART: Heart Size: Normal Coronary calcification: Moderate most prominent LAD. Pericardial effusion: No significant pericardial effusion. OTHER FINDINGS: Upper abdomen: Postsurgical change at diaphragmatic hiatus likely from gastric bypass surgery is pres ent. Small hiatal hernia is seen above this. Cholecystectomy clips are seen. Bony thorax: There is moderate multilevel spurring in the thoracic spine Supraclavicular region: No suspicious findings are present. Other: No additional suspicious findings are seen. IMPRESSION: Few small nodules noted above. Largest measures just over 4 mm mean axis. FOLLOW UP CT CHEST RECOMMENDATION: Six-month follow-up low-dose lung screening CT CT LUNG RAD: Lung-Rad 3 Probably Benign
== END | disposition home or self-care (01) ==
LOC: RADCTMAIN 07:52
PROVIDERS: ATTEND Internal Medicine
DX: R91.8 Other nonspecific abnormal finding of lung field (principal); Z87.891 Personal history of nicotine dependence

== ENCOUNTER → 2018-04-16 | Outpatient (CLI) | payer BC ==
--- NOTE | 2018-04-18 10:56 | MM ---
Reason for exam: screening (asymptomatic). Last mammogram was performed 2 years and 8 months ago. History: Patient is postmenopausal and has history of other cancer at age 47. Physical Findings: A clinical breast exam by your physician is recommended on an annual basis and results should be correlated with mammographic findings. MG Screening Mammo w CAD Bilateral CC and MLO view(s) were taken. Prior study comparison: August 11, 2015, right breast MG 3d work up w/cad RT. July 30, 2015, bilateral MG screening mammo w CAD. The breast tissue is heterogeneously dense. This may lower the sensitivity of mammography. Finding: There are stable punctate calcifications in the right breast. No suspicious abnormality. No significant changes in finding since August 11, 2015 and July 30, 2015. ASSESSMENT: Benign, BI-RAD 2 RECOMMENDATION: Routine screening mammogram of both breasts in 1 year.
== END | disposition home or self-care (01) ==
LOC: RADMAMWWP 07:49
PROVIDERS: ATTEND Internal Medicine
DX: Z12.31 Encounter for screening mammogram for malignant neoplasm of breast (principal)
CPT/HCPCS: 77067

== ENCOUNTER → 2019-02-05 | Outpatient (CLI) | payer BC ==
--- NOTE | 2019-02-05 11:32 | XR ---
EXAMINATION TYPE: XR femur LT DATE OF EXAM: 02/05/2019 COMPARISON: NONE HISTORY: 63-year-old female left groin pain TECHNIQUE: 2 views FINDINGS: Mild to moderate axial joint space narrowing left hip with marginal spurring. There is a 1.8 cm ossif ic density along the posterior lower femoral neck region, probable loose body. Tricompartmental degenerative spurring at the knee. No knee joint effusion. Extensor mechanism appear s intact. No acute fracture identified. IMPRESSION: 1. Suggestion of moderate left hip OA and probable 1.8 cm associated loose body posteriorly. 2. Tricompartmental degenerative spurring at the knee. 3. No acute osseous abnormality seen.
== END | disposition home or self-care (01) ==
LOC: RADXRYALE 09:42
PROVIDERS: ATTEND Internal Medicine
DX: R10.32 Left lower quadrant pain (principal)

== ENCOUNTER → 2019-06-20 | Outpatient (CLI) | payer BC ==
[2019-06-20 09:57] VITALS: BP 164/83; PULSE 65; RESP 16; TEMP 98.2; BMI 36.3
--- NOTE | 2019-06-20 10:35 | P.PN ---
Subjective Progress Note Date: 06/20/19 DATE OF SERVICE: 06/20/2019 CHIEF COMPLAINT: Follow-up gastric bypass. HISTORY OF PRESENT ILLNESS: Zaynab Gale is a 63-year-old female status post Gregg-en-Y gastric bypass on 06/15/2016. She is over 3 years out. Her last visit was 2 years ago. She has new thyroid problems including depression. She is working more hours and has more stress. She has regained 22 pounds in 2 years. She had gotten down to 182 pounds now with weight regain. She last saw her PCP 2 months ago. No reports of abdominal pain. She denies dysphagia. She reports much gas. She is not journaling her diet or protein intake. At her height of 5 feet 4 inches, her ideal body weight is 144 pounds. Today she comes 212 pounds from 194 pounds, 2 years ago. She has gained 18 pounds in 2 years. Her highest weight in the program is 260 pounds. She has maintained 48 pounds weight loss. Percent excess weight loss is 42 %. She is 68 pounds overweight. Initial body mass index was 44.7 but now 36.4. She comes in with new problems of weight gain. She comes in for weight loss. PAST MEDICAL HISTORY: 1. Morbid obesity due to excess calories, BMI 44.7 initial 2. Hypertension. 3. Dyslipidemia. 4. Irritable bowel syndrome. 5. Leukocytosis. 6. Fibromyalgia. 7. Stress urinary incontinence. 8. Hypothyroidism. 9. Obstructive sleep apnea. 10. Depression. 11. Osteoarthritis. PAST SURGICAL HISTORY: 1. Excision of a skin lesions. 2. Partial thyroidectomy. 3. Tonsillectomy and adenoidectomy. 4. Cholecystectomy. 5. Umbilical hernia repair with mesh. 6. Colonoscopy. 7. Hemorrhoidectomy. 8. D&C. 9. Tubal ligation. 10. EGD 11. Right knee replacement. 12. Left ankle reconstruction. 13. Status post Gregg-en-Y gastric bypass. MEDICATIONS: Home Medications Medication Instructions Recorded Confirmed Bisoprol/Hydrochlorothiazide [Ziac 1 tab PO QAM 01/22/14 08/08/19 10-6.25 MG] Levothyroxine Sodium [Synthroid] 100 mcg PO QAM 01/22/14 08/08/19 Multivitamin [Multivitamins Adult 1 tab PO DAILY 12/15/16 08/08/19 Gummies] Escitalopram [Lexapro] 10 mg PO DAILY 06/25/19 08/08/19 buPROPion HCL [Wellbutrin XL] 300 mg PO DAILY 06/25/19 08/08/19 Previous Rx's Medication Instructions Recorded Zinc Gluconate [Zinc] 50 mg PO DAILY@1200 #60 tablet 07/04/19 ALLERGIES: Denies. SOCIAL HISTORY: Denies current tobacco use. FAMILY HISTORY: Denies any family history of cancers. Denies any Crohns disease or colitis in her family. She denies any lupus in her family. REVIEW OF SYSTEMS: CONSTITUTIONAL: At her height of 5 feet 4 inches, her ideal body weight is 144 pounds. Her highest weight in the program is 260 pounds. Initial body mass index is 44.7. RESPIRATORY: Past obstructive sleep apnea. No pneumonia. MUSCULOSKELETAL: Improvement in osteoarthritis. Improve lower back pain. CARDIOVASCULAR: Decreased dose regarding her hypertension. No heart attack. GASTROINTESTINAL: No reports of dumping syndrome. No reports of food allergies. HEENT: Denies any troubles with vision other than wearing glasses. Wears caps and crowns. Denies any hearing problems. No dysphagia. ENDOCRINE: Has hypothyroidism. Denies any active blood sugar glucose intolera nce. : Denies any problems with bleeding between menses. She is postmenopausal, however. No reports of increasing in her frequency. NEURO: Denies any headaches or seizure disorders. PSYCH: Has history of depression. She reports suicidal thoughts. HEMATOLOGIC: Denies any abnormal bruising or bleeding. Denies any prior history of DVT. SKIN: No rashes skin cancer. PHYSICAL EXAM: VITAL SIGNS: 5 feet 4 inches; 212 pounds. Body mass index is 36.4 Vital Signs Temp 98.2 F 06/20/19 09:54 Pulse 65 06/20/19 09:54 Resp 16 06/20/19 09:54 BP 164/83 06/20/19 09:54 Pulse Ox ABDOMEN: Soft. No palpable incisional hernias. Nontender. MUSCULOSKELETAL: No clubbing, cyanosis, or edema. GENERAL: Well-developed female in no acute distress. HEENT: No scleral icterus. Extraocular movements grossly intact. Head is atraumatic and normocephalic. NECK: Supple without lymphadenopathy. CHEST: Unlabored respirations, equal bilateral excursions. CARDIOVASCULAR: Regular rate. Regular rhythm. NEURO: No focal or lateralizing signs. Cranial nerves II-12 intact. PSYCH: Appropriate affect. Alert and oriented to person, place, and time. SKIN: Well perfused. Good skin turgor. ASSESSMENT: 1. Morbid obesity due to excess calories. 2. Body mass index reduced from 44.7 down to 36.4 3. Status post Gregg-en-Y gastric bypass. 4. Essential hypertension 5. Obstructive sleep apnea 6. Secondary hyperparathyroidism. 7. Hypothyroidism. 8. Depression. 9. Dyslipidemia. 10. Osteoarthritis of the right knee 11. Left ankle osteoarthritis 12. Dietary surveillance and counseling. 13. Irritable bowel syndrome. 14. Fibromyalgia. 15. Diabetes type 2, resolved. PLAN: 1. Recommend [employer] Pal 2. Recommend full bariatric labs 3. Follow up in 1 month Laboratory Last Values WBC 8.6 k/uL (3.8-10.6) 06/20/19 10:50 RBC 4.63 m/uL (3.80-5.40) 06/20/19 10:50 Hgb 13.9 gm/dL (11.4-16.0) 06/20/19 10:50 Hct 42.3 % (34.0-46.0) 06/20/19 10:50 MCV 91.5 fL (80.0-100.0) 06/20/19 10:50 MCH 30.0 pg (25.0-35.0) 06/20/19 10:50 MCHC 32.8 g/dL (31.0-37.0) 06/20/19 10:50 RDW 13.0 % (11.5-15.5) 06/20/19 10:50 Plt Count 419 k/uL (150-450) 06/20/19 10:50 PT 9.5 sec (9.0-12.0) 06/20/19 10:50 INR 0.9 (<1.2) 06/20/19 10:50 APTT 23.0 sec (22.0-30.0) 06/20/19 10:50 Sodium 142 mmol/L (135-145) 06/20/19 10:50 Potassium 4.5 mmol/L (3.5-5.5) 06/20/19 10:50 Chloride 107 mmol/L (96-109) 06/20/19 10:50 Carbon Dioxide 25.6 mmol/L (21.6-31.8) 06/20/19 10:50 Anion Gap 9.40 mmol/L (4.00-12.00) 06/20/19 10:50 BUN 14.0 mg/dL (9.0-27.0) 06/20/19 10:50 Creatinine 0.8 mg/dL (0.6-1.5) 06/20/19 10:50 Est GFR (CKD-EPI)AfAm 90.3 (60.0-200.0) 06/20/19 10:50 Est GFR (CKD-EPI)NonAf 77.9 (60.0-200.0) 06/20/19 10:50 BUN/Creatinine Ratio 17.50 Ratio (12.00-20.00) 06/20/19 10:50 Glucose 99 mg/dL (70-110) 06/20/19 10:[address] Glu mg/dL 114 06/20/19 10:50 Hemoglobin A1c 5.6 % (4.0-6.0) 06/20/19 10:50 Calcium 9.1 mg/dL (8.7-10.3) 06/20/19 10:50 Phosphorus 3.8 mg/dL (2.4-5.1) 06/20/19 10:50 Magnesium 2.1 mg/dL (1.5-2.4) 06/20/19 10:50 Iron 153 ug/dL (50-170) 06/20/19 10:50 TIBC 313 ug/dL (228-460) 06/20/19 10:50 Iron Saturation 48.88 (12.00-45.00) H 06/20/19 10:50 Ferritin 80.4 ng/mL (10.0-291.0) 06/20/19 10:50 Total Bilirubin 0.4 mg/dL (0.3-1.2) 06/20/19 10:50 AST 20 U/L (13-35) 06/20/19 10:50 ALT 20 U/L (8-44) 06/20/19 10:50 Alkaline Phosphatase 118 U/L (41-126) 06/20/19 10:50 Total Protein 6.5 g/dL (6.2-8.2) 06/20/19 10:50 Albumin 4.40 g/dL (3.80-4.90) 06/20/19 10:50 Globulin 2.1 g/dL (1.6-3.3) 06/20/19 10:50 Albumin/Globulin Ratio 2.10 g/dL (1.60-3.17) 06/20/19 10:50 Prealbumin 30.0 mg/dL (18.0-42.0) 06/20/19 10:50 Triglycerides 173.0 mg/dL (0.0-149.0) H 06/20/19 10:50 Cholesterol 183 mg/dL (0-200) 06/20/19 10:50 LDL Cholesterol, Calc 87.4 mg/dL (0.0-131.0) 06/20/19 10:50 VLDL Cholesterol, Calc 34.60 mg/dL (5.00-40.00) 06/20/19 10:50 HDL Cholesterol 61.0 mg/dL (40.0-60.0) H 06/20/19 10:50 Cholesterol/HDL Ratio 3.00 06/20/19 10:50 Vitamin A 71 ug/dL (38-106) 06/20/19 10:50 Vitamin B1 76 ug/L (38-122) 06/20/19 10:50 Vitamin B12 580.0 pg/mL (200.0-944.0) 06/20/19 10:50 Vitamin D 25-Hydroxy 22.5 ng/mL (30.0-100.0) L 06/20/19 10:50 RBC Folate 620 ng/mL (280 - 791) 06/20/19 10:50 TSH 2.460 uIU/mL (0.350-5.500) 06/20/19 10:50 PTH Intact 200.8 pg/mL (14.0-72.0) H 06/20/19 10:50 Copper 1189 ug/L (810-1990) 06/20/19 10:50 Selenium 114 mcg/L (63-160) 06/20/19 10:50 Zinc 59 ug/dL (60-130) L 06/20/19 10:50 Vitamin D is low, 22.5 PTH is elevated, 200.8 Zinc is low 59 Objective - Vital Signs Vital signs: Vital Signs Temp 98.2 F 06/20/19 09:54 Pulse 65 06/20/19 09:54 Resp 16 06/20/19 09:54 BP 164/83 06/20/19 09:54 Pulse Ox Intake & Output 06/19/19 06/20/19 06/20/19 18:59 06:59 18:59 Weight 96.162 kg - Labs CBC & Chem 7: 06/20/19 10:50 06/20/19 10:50
[2019-06-20 11:10] LABS: HCT 42.3 % (34.0-46.0); HGB 13.9 gm/dL (11.4-16.0); MCHC 32.8 g/dL (31.0-37.0); MCV 91.5 fL (80.0-100.0); Mean Platelet Volume 6.9; Platelet Count 419 k/uL (150-450); RBC 4.63 m/uL (3.80-5.40); WBC 8.6 k/uL (3.8-10.6)
[2019-06-20 11:22] LABS: INR 0.9 (<1.2); Prothrombin Time 9.5 sec (9.0-12.0)
[2019-06-20 17:10] LABS: Hemoglobin A1C 5.6 % (4.0-6.0)
[2019-06-20 17:20] LABS: Iron Saturation 48.88 (12.00-45.00)
[2019-06-20 17:25] LABS: African American GFR (CKD) 90.3 (60.0-200.0); Albumin 4.4 g/dL (3.80-4.90); Albumin/Globulin Ratio 2.1 (1.60-3.17); Anion Gap 9.4 mmol/L (4.00-12.00); BUN/Creat Ratio 17.5 Ratio (12.00-20.00); Calcium 9.1 mg/dL (8.7-10.3); Carbon Dioxide 25.6 mmol/L (21.6-31.8); Globulin 2.1 g/dL (1.6-3.3); LDL Cholesterol,Calculated 87.4 mg/dL (0.0-131.0); Magnesium 2.1 mg/dL (1.5-2.4); Non-African American GFR(CKD) 77.9 (60.0-200.0); Phosphorus 3.8 mg/dL (2.4-5.1); Potassium 4.5 mmol/L (3.5-5.5); Total Bilirubin 0.4 mg/dL (0.3-1.2); Total Protein 6.5 g/dL (6.2-8.2); VLDL Calculation 34.6 mg/dL (5.00-40.00)
[2019-06-20 17:29] LABS: Ferritin 80.4 ng/mL (10.0-291.0); Vitamin D 25 Hydroxy 22.5 ng/mL (30.0-100.0)
[2019-06-21 13:53] LABS: Zinc, Serum 59 ug/dL (60-130)
[2019-06-22 08:15] LABS: Vit B1(Thiamine) 76 ug/L (38-122)
[2019-06-22 09:12] LABS: Vitamin A 71 ug/dL (38-106)
[2019-06-27 22:12] LABS: Selenium 114 mcg/L (63-160)
== END | disposition home or self-care (01) ==
LOC: BARWHC3 09:04
PROVIDERS: ATTEND Surgery Plastic and Reconstructive Surgery
DX: E66.01 Morbid (severe) obesity due to excess calories (principal); Z68.36 Body mass index [BMI] 36.0-36.9, adult; I10 Essential (primary) hypertension; G47.33 Obstructive sleep apnea (adult) (pediatric); E03.9 Hypothyroidism, unspecified; F32.9 Major depressive disorder, single episode, unspecified; E78.5 Hyperlipidemia, unspecified; M17.11 Unilateral primary osteoarthritis, right knee; M19.072 Primary osteoarthritis, left ankle and foot; Z71.3 Dietary counseling and surveillance; K58.9 Irritable bowel syndrome, unspecified; M79.7 Fibromyalgia; E21.1 Secondary hyperparathyroidism, not elsewhere classified; E89.1 Postprocedural hypoinsulinemia; D50.9 Iron deficiency anemia, unspecified; K90.9 Intestinal malabsorption, unspecified; E55.9 Vitamin D deficiency, unspecified; K74.1 Hepatic sclerosis; N19 Unspecified kidney failure; Z98.84 Bariatric surgery status; Z98.51 Tubal ligation status; Z90.49 Acquired absence of other specified parts of digestive tract; Z79.899 Other long term (current) drug therapy
CPT/HCPCS: 36415; 80053; 80061; 82306; 82525; 82607; 82728; 82747; 83036; 83540; 83550; 83735; 83970; 84100; 84134; 84255; 84425; 84443; 84590; 84630; 85027; 85610; 85730; 99211

== ENCOUNTER → 2019-07-04 | Outpatient (CLI) | payer BC ==
--- NOTE | 2019-07-04 09:25 | P.PN ---
Subjective Progress Note Date: 07/04/19 DATE OF SERVICE: 07/04/2019 CHIEF COMPLAINT: Follow-up gastric bypass. HISTORY OF PRESENT ILLNESS: Zaynab Gale is a 63-year-old female status post Gregg-en-Y gastric bypass on 06/15/2016. She is over 3 years out. She comes in with eating foods that are surrounded at her job that includes moderate junk food. She does not keep her food journal. No reports of abdominal pain. At her height of 5 feet 4 inches, her ideal body weight is 144 pounds. Today she comes 211 pounds from 212 pounds, 1 month ago. She has lost 1 pound in 1 year. Her highest weight in the program is 260 pounds. She has maintained 49 pounds weight loss. Percent excess weight loss is 43 %. She is 67 pounds overweight. Initial body mass index was 44.7 but now 36.2. PHYSICAL EXAM: VITAL SIGNS: 5 feet 4 inches; 211 pounds. Body mass index is 36.2 Vital Signs Temp 98.2 F 07/04/19 09:40 Pulse 79 07/04/19 09:40 Resp BP 120/59 07/04/19 09:40 Pulse Ox ABDOMEN: Soft. No palpable incisional hernias. Nontender. MUSCULOSKELETAL: No clubbing, cyanosis, or edema. GENERAL: Well-developed female in no acute distress. HEENT: No scleral icterus. Extraocular movements grossly intact. Head is atraumatic and normocephalic. NECK: Supple without lymphadenopathy. CHEST: Unlabored respirations, equal bilateral excursions. CARDIOVASCULAR: Regular rate. Regular rhythm. NEURO: No focal or lateralizing signs. Cranial nerves II-12 intact. PSYCH: Appropriate affect. Alert and oriented to person, place, and time. SKIN: Well perfused. Good skin turgor. LABS: PTH elevated 200, Vitamin D is low 22.5, Zinc low 59 ASSESSMENT: 1. Morbid obesity due to excess calories. 2. Body mass index reduced from 44.7 down to 36.4 3. Status post Gregg-en-Y gastric bypass. 4. Essential hypertension 5. Obstructive sleep apnea 6. Secondary hyperparathyroidism. 7. Hypothyroidism. 8. Depression. 9. Dyslipidemia. 10. Osteoarthritis of the right knee 11. Left ankle osteoarthritis 12. Dietary surveillance and counseling. 13. Irritable bowel syndrome. 14. Fibromyalgia. 15. Diabetes type 2, resolved. 16. Vitamin D deficiency 17. Zinc deficiency PLAN: 1. Labs reviewed with Vitamin D and Zinc 2. Prescription reviewed and given for Vitamin D and Zinc 3. She uses her [employer] band with sleep of 5 hrs. Recommend increase sleep. 4. Recommend follow-up yearly. 5. Protein intake 75 grams daily advised.
[2019-07-04 09:41] VITALS: BP 120/59; PULSE 79; TEMP 98.2; BMI 36.2
== END | disposition home or self-care (01) ==
LOC: BARWHC3 08:25
PROVIDERS: ATTEND Surgery Plastic and Reconstructive Surgery
DX: Z48.815 Encounter for surgical aftercare following surgery on the digestive system (principal); E66.01 Morbid (severe) obesity due to excess calories; I10 Essential (primary) hypertension; G47.33 Obstructive sleep apnea (adult) (pediatric); E03.9 Hypothyroidism, unspecified; E78.5 Hyperlipidemia, unspecified; M17.11 Unilateral primary osteoarthritis, right knee; M19.072 Primary osteoarthritis, left ankle and foot; K58.9 Irritable bowel syndrome, unspecified; M79.7 Fibromyalgia; E55.9 Vitamin D deficiency, unspecified; N25.81 Secondary hyperparathyroidism of renal origin; F32.9 Major depressive disorder, single episode, unspecified; E60 Dietary zinc deficiency; Z98.84 Bariatric surgery status; Z71.3 Dietary counseling and surveillance; Z68.36 Body mass index [BMI] 36.0-36.9, adult
CPT/HCPCS: 99211

== ENCOUNTER → 2019-08-08 | Outpatient (CLI) | payer BC ==
[2019-08-08 09:18] VITALS: BP 138/84; PULSE 67; TEMP 98.1; BMI 36.7
--- NOTE | 2019-08-08 09:51 | P.PN ---
Subjective Progress Note Date: 08/08/19 DATE OF SERVICE: 08/08/2019 CHIEF COMPLAINT: Follow-up gastric bypass. HISTORY OF PRESENT ILLNESS: Zaynab Gale is a 63-year-old female status post Gregg-en-Y gastric bypass on 06/15/2016. She is journaling her food and notices that she is eating too much carbs and her protein intake is under 50 grams d aily. At her height of 5 feet 4 inches, her ideal body weight is 144 pounds. Today she comes 214 pounds from 211 pounds, 1 month ago. She has gained 3 pounds in 1 month. Her highest weight in the program is 260 pounds. She has maintained 46 pounds weight loss. Percent excess weight loss is 40 %. She is 70 pounds overweight. Initial body mass index was 44.7 but now 36.7. PHYSICAL EXAM: VITAL SIGNS: 5 feet 4 inches; 214 pounds. Body mass index is 36.7 Vital Signs Temp 98.1 F 08/08/19 09:07 Pulse 67 08/08/19 09:07 Resp BP 138/84 08/08/19 09:07 Pulse Ox ABDOMEN: Soft. Nontender. MUSCULOSKELETAL: No clubbing, cyanosis, or edema. GENERAL: Well-developed female in no acute distress. HEENT: No scleral icterus. Extraocular movements grossly intact. Head is atraumatic and normocephalic. NECK: Supple without lymphadenopathy. CHEST: Unlabored respirations, equal bilateral excursions. CARDIOVASCULAR: Regular rate. Regular rhythm. NEURO: No focal or lateralizing signs. Cranial nerves II-12 intact. PSYCH: Appropriate affect. Alert and oriented to person, place, and time. SKIN: Well perfused. Good skin turgor. ASSESSMENT: 1. Morbid obesity due to excess calories. 2. Body mass index reduced from 44.7 down to 36.7 3. Status post Gregg-en-Y gastric bypass. 4. Essential hypertension 5. Obstructive sleep apnea 6. Secondary hyperparathyroidism. 7. Hypothyroidism. 8. Depression. 9. Dyslipidemia. 10. Osteoarthritis of the right knee 11. Left ankle osteoarthritis 12. Dietary surveillance and counseling. 13. Irritable bowel syndrome. 14. Fibromyalgia. 15. Diabetes type 2, resolved. 16. Vitamin D deficiency 17. Zinc deficiency PLAN: 1. Recommend eating breakfast 2. She has irritable bowel syndrome and recommend stay away from processed foods. Objective - Vital Signs Vital signs: Vital Signs Temp 98.1 F 08/08/19 09:07 Pulse 67 08/08/19 09:07 Resp BP 138/84 08/08/19 09:07 Pulse Ox Intake & Output 08/07/19 08/08/19 08/08/19 18:59 06:59 18:59 Weight 97.069 kg
== END | disposition home or self-care (01) ==
LOC: BARWHC3 08:19
PROVIDERS: ATTEND Surgery Plastic and Reconstructive Surgery
DX: Z48.815 Encounter for surgical aftercare following surgery on the digestive system (principal); E66.01 Morbid (severe) obesity due to excess calories; I10 Essential (primary) hypertension; G47.33 Obstructive sleep apnea (adult) (pediatric); E21.1 Secondary hyperparathyroidism, not elsewhere classified; E03.9 Hypothyroidism, unspecified; F32.9 Major depressive disorder, single episode, unspecified; E78.5 Hyperlipidemia, unspecified; M17.11 Unilateral primary osteoarthritis, right knee; M19.072 Primary osteoarthritis, left ankle and foot; K58.9 Irritable bowel syndrome, unspecified; M79.7 Fibromyalgia; E55.9 Vitamin D deficiency, unspecified; E60 Dietary zinc deficiency; Z68.36 Body mass index [BMI] 36.0-36.9, adult; Z71.3 Dietary counseling and surveillance; Z98.84 Bariatric surgery status
CPT/HCPCS: 99211

== ENCOUNTER → 2020-03-05 | Outpatient (CLI) | payer MEDICARE, BC ==
--- NOTE | 2020-03-05 15:39 | US ---
EXAMINATION TYPE: US pelvis complete transvag DATE OF EXAM: 03/05/2020 COMPARISON: NONE CLINICAL HISTORY: N95.0 POSTMENOPAUSAL BLEEDING. TECHNIQUE: Transvaginal (TV) and Transabdominal (TA) . Transabdominal sonographic images of the pel vis were acquired. Transvaginal sonographic images were medically necessary to better assess the fol lowing anatomy: Ovaries Date of LMP: PM, EXAM MEASUREMENTS: Uterus: 9.4 x 4.7 x 3.8 cm Endometrial Stripe: 0.5 cm Left Ovary: 1.5 x 1.1 x 0.9 cm 1. Uterus: Anteverted heterogenous 2. Endometrium: wnl 3. Right Ovary: see adnexal notes 4. Left Ovary: wnl 5. Bilateral Adnexa: right adnexal lesion seen, vascular = 3.6 x 2.4 x 2.2 cm. Unable to determine etiology, right ovary vs right PACO pedunculated fibroid vs other. Nonperistalsing. 6. Posterior cul-de-sac: no free fluid IMPRESSION: 1. Solid appearing right adnexal lesion. Differential diagnosis could include a pedunculated fibroid. Recommend CT CT pelvis for additional workup.
== END | disposition home or self-care (01) ==
LOC: RADUSWWP 13:39
PROVIDERS: ATTEND Internal Medicine
DX: N83.8 Other noninflammatory disorders of ovary, fallopian tube and broad ligament (principal); N95.0 Postmenopausal bleeding
CPT/HCPCS: 76830; 76856

== ENCOUNTER → 2020-03-24 | Outpatient (CLI) | payer MEDICARE, BC ==
[2020-03-24 08:26] LABS: African American GFR (CKD) >90 (>60 ml/min/1.73 sqM); Blood Urea Nitrogen 19 mg/dL (7-17); Non-African American GFR(CKD) >90 (>60 ml/min/1.73 sqM)
--- NOTE | 2020-03-24 10:48 | CT ---
EXAMINATION TYPE: CT pelvis w con DATE OF EXAM: 03/24/2020 COMPARISON: Correlation ultrasound 03/05/2020 HISTORY: 64-year-old female N83.9, ovarian mass RLQ pain TECHNIQUE: Contiguous axial scanning of the pelvis following administration of 100 ml Isovue 300 IV c ontrast. Delayed images through the bladder and coronal/sagittal reconstructions performed. CT DLP: 1362 mGycm Automated exposure control for dose reduction was used. FINDINGS: Prior supraumbilical midline abdominal wall mesh repair. Partially visualized 9 mm cortical hypodensity upper pole left kidney, probable cyst. Visualized righ t kidney and lower right liver lobe shows no gross abnormal mobility. Mild atherosclerotic calcifications abdominal aorta without aneurysm. Extensive sigmoid diverticulosis. There are areas of wall thickening likely reflecting chronic divert iculitis. Prominent pericolonic vessels without definite inflammation. Bladder urine distended. Uterus anteverted. Endometrial stripe may be thickened up to 7 mm, refer to sagittal image 34. Suspect a small left ovary. In the right cul-de-sac/adnexa, there is a ovoid heterogeneous mass measu ring 4.0 x 2.3 x 3.3 cm. It has broad-based abutment with the right posterolateral lower uterine segm ent. There is some pelvic floor relaxation noted. No abnormal fluid collection in the pelvis or pelvi c lymphadenopathy seen. Bones: Mild degenerative change of the hips. Facet arthropathy lower lumbar spine. Grade 1 anterolist hesis at L3-L4. IMPRESSION: 1. OVAL 4.0 X 2.2 X 3.3 CM HETEROGENEOUS MASS ALONG THE RIGHT CUL-DE-SAC/ADNEXA HAS BROAD-BASED ABUTM ENT WITH THE LOWER UTERINE SEGMENT. UNABLE TO CLEARLY DETERMINE IF THIS RELATES TO THE OVARY IN WHICH CASE, AN OVARIAN NEOPLASM WILL NEED TO BE EXCLUDED. GIVEN THE BROAD-BASED ABUTMENT, A SUBSEROSAL PAR TIALLY PEDUNCULATED FIBROID IS ALSO IN THE DIFFERENTIAL. THE HETEROGENEOUS DENSITY COULD REFLECT FIBR OID DEGENERATION. FURTHER CHIEF UNDERWRITER EVALUATION RECOMMENDED. 2. ENDOMETRIAL STRIPE MAY BE SLIGHTLY THICKENED AT 7 MM. AGAIN, CHIEF UNDERWRITER EVALUATION IS RECOMMENDED BELTRAN CIALLY IF THERE IS A HISTORY OF POSTMENOPAUSAL BLEEDING. IN ADDITION, FEMALE PELVIC MRI COULD PROVIDE FURTHER ASSESSMENT OF THE RIGHT ADNEXA AND JUNCTIONAL ANATOMY OF THE UTERUS. 3. EXTENSIVE SIGMOID DIVERTICULOSIS WITH WALL THICKENING SUGGESTING CHRONIC DIVERTICULITIS.
== END | disposition home or self-care (01) ==
LOC: RADCTMAIN 07:46
PROVIDERS: ATTEND Internal Medicine
DX: N83.8 Other noninflammatory disorders of ovary, fallopian tube and broad ligament (principal); K57.30 Diverticulosis of large intestine without perforation or abscess without bleeding
CPT/HCPCS: 82565; 84520; 72193; 36415; Q9967

== ENCOUNTER 2021-04-18 17:20 | Emergency (ER) | payer BC, MEDICARE ==
[2021-04-18] MEDS ORDERED: SODIUM CHLORIDE 0.9% 1,000 ML IV STA (18:19)
[2021-04-18 18:41] LABS: Basophils # (A) 0.1 k/uL (0-0.2); Basophils % (A) 1 %; Eosinophils # (A) 0.2 k/uL (0-0.7); Eosinophils % (A) 2 %; HCT 40.8 % (34.0-46.0); HGB 13.4 gm/dL (11.4-16.0); Lymphocytes # (A) 2.4 k/uL (1.0-4.8); Lymphocytes % (A) 24 %; MCH 31.2 pg (25.0-35.0); MCHC 32.8 g/dL (31.0-37.0); MCV 95.1 fL (80.0-100.0); Mean Platelet Volume 9.1; Monocytes # (A) 0.8 k/uL (0-1.0); Monocytes % (A) 8 %; Neutrophils # (A) 6.5 k/uL (1.3-7.7); Neutrophils % (A) 65 %; Platelet Count 412 k/uL (150-450); RBC 4.29 m/uL (3.80-5.40); RDW 12.6 % (11.5-15.5)
[2021-04-18 18:47] LABS: Albumin 3.8 g/dL (3.5-5.0); Calcium 9.4 mg/dL (8.4-10.2); Potassium 4.4 mmol/L (3.5-5.1); Total Bilirubin 0.4 mg/dL (0.2-1.3); Total Protein 6.5 g/dL (6.3-8.2)
[2021-04-18 18:56] LABS: Appearance,Urine Cloudy (Clear); Bilirubin,Urine Negative (Negative); Blood,Urine Negative (Negative); Color,Urine Yellow; Glucose,Urine (UA) Negative (Negative); Hyaline Casts,Urine 38 /lpf (0-2); Ketones,Urine Trace (Negative); Leukocyte Esterase,Urine Moderate (Negative); Mucus,Urine Moderate /hpf; Nitrite,Urine Negative (Negative); PH, Urine 5.5 (5.0-8.0); Protein,Urine 1+ (Negative); RBC,Urine 5 /hpf (0-5); Specific Gravity,Urine 1.032 (1.001-1.035); Squamous Epithelial Cell,Urine 5 /hpf (0-4); WBC,Urine 2 /hpf (0-5)
--- NOTE | 2021-04-18 19:28 | XR ---
EXAMINATION TYPE: XR chest 2V DATE OF EXAM: 04/18/2021 COMPARISON: NONE HISTORY: Syncope TECHNIQUE: FINDINGS: Heart and mediastinum are normal. Lungs are clear. Diaphragm is normal. Bony thorax is inta ct. There are chest leads. IMPRESSION: Normal chest.
--- NOTE | 2021-04-18 19:33 | ED ---
General Adult HPI - General Chief complaint: Dizziness Stated complaint: syncope Time Seen by Provider: 04/18/21 17:36 Source: patient, EMS Mode of arrival: EMS Limitations: no limitations - History of Present Illness Initial comments: Zaynab is a 65-year-old female presents to the ER today for evaluation after syncopal episode. Patient was at work she states that she was walking when she became very lightheaded servicing dark. Her assisted her to the ground. This is secondary to 7 episodes similar to this so she was advised from the hospital for evaluation. Family at bedside since then she's overworking herself. 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 Patient denies any recent illness any fevers chills nausea vomiting cough congestion. She denies any chest pain palpitations shortness of breath preceding this event. - Related Data Home Medications Medication Instructions Recorded Confirmed Bisoprol/Hydrochlorothiazide [Ziac 1 tab PO QAM 01/22/14 08/08/19 10-6.25 MG] Levothyroxine Sodium [Synthroid] 100 mcg PO QAM 01/22/14 08/08/19 Multivitamin [Multivitamins Adult 1 tab PO DAILY 12/15/16 08/08/19 Gummies] Escitalopram [Lexapro] 10 mg PO DAILY 06/25/19 08/08/19 buPROPion HCL [Wellbutrin XL] 300 mg PO DAILY 06/25/19 08/08/19 Previous Rx's Medication Instructions Recorded Zinc Gluconate [Zinc] 50 mg PO DAILY@1200 #60 tablet 07/04/19 Allergies Allergy/AdvReac Type Severity Reaction Status Date / Time No Known Allergies Allergy Verified 08/08/19 09:18 Review of Systems ROS Statement: Those systems with pertinent positive or pertinent negative responses have been documented in the HPI. ROS Other: All systems not noted in ROS Statement are negative. Past Medical History Past Medical History: Cancer, Hyperlipidemia, Hypertension, Osteoarthritis (OA), Sleep Apnea/CPAP/BIPAP, Thyroid Disorder Additional Past Medical History / Comment(s): Colitis, IBS, hx. Skin Cancer, uses CPAP, frequent left foot & ankle swelling, urinary incontinence,2019 Depression which had to be treated. History of Any Multi-Drug Resistant Organisms: None Reported Past Surgical History: Bariatric Surgery, Cholecystectomy, Hernia Repair, Joint Replacement, Orthopedic Surgery, Tonsillectomy, Tubal Ligation Additional Past Surgical History / Comment(s): Partial Thyroidectomy, D&C., He mmorroidectomy, left achilles tendon repair. RIGHT KNEE REPLACEMENT, 06-15-16 [facility] 2019 Cataracts both eyes Past Anesthesia/Blood Transfusion Reactions: Motion Sickness, Postoperative Nausea & Vomiting (PONV) Past Psychological History: Depression Past Alcohol Use History: None Reported Past Drug Use History: None Reported - Past Family History Father Additional Family Medical History / Comment(s): Rheumatic fever causing fr om weak heart Mother Family Medical History: Diabetes Mellitus, Hypertension General Exam - General Exam Comments Initial Comments: Physical Exam GENERAL: Patient is well-developed and well-nourished. Patient is nontoxic and well- hydrated and is in no distress. HENT: Normocephalic, Atraumatic. EYES: PERRL, EOMI PULMONARY: Unlabored respirations. No audible rales rhonchi or wheezing was noted. CARDIOVASCULAR: There is a regular rate and rhythm without any murmurs gallops or rubs. ABDOMEN: Soft and nontender with normal bowel sounds. SKIN: Skin is clear with no lesions or rashes and otherwise unremarkable. : Deferred NEUROLOGIC: Patient is alert and oriented x3. Moving all extremities spontaneously MUSCULOSKELETAL: Normal extremities with adequate strength and full range of motion. No lower extremity swelling or edema. No calf tenderness. PSYCHIATRIC: Normal psychiatric evaluation. Limitations: no limitations Course Vital Signs 04/18/21 04/18/21 04/18/21 17:22 17:34 18:50 Temperature 97.9 F Pulse Rate 63 62 Respiratory 18 18 Rate Blood Pressure 98/76 109/54 114/52 O2 Sat by Pulse 96 98 Oximetry 04/18/21 20:00 Temperature 97.6 F Pulse Rate 55 L Respiratory 16 Rate Blood Pressure 113/55 O2 Sat by Pulse 98 Oximetry EKG Findings - EKG Comments: EKG Findings:: EKG obtained at 1729 rate is 51 rhythm is sinus bradycardia there is normal axis and normal intervals, MO 144 QRS him for QTC [address] elevations or depressions no evidence of ischemia or infarction Medical Decision Making - Medical Decision Making Patient seen and evaluated at 65 her old female syncopal episode without any signs of trauma EKG, chest x-ray and labs are relatively unremarkable patient has an elevated BUN, creatinine and glucose. She was hydrated while in the emergency department. At this time I do feel patient stable for discharge home. She was advised to rest for a couple of days as it does seem she is over night eating or drinking well. Patient is agreeable to this. Return parameters were discussed patient discharged home in stable condition. - Lab Data Result diagrams: 04/18/21 18:31 04/18/21 18:31 Lab Results 04/18/21 04/18/21 04/18/21 Range/Units 18:31 18:31 18:31 WBC 10.0 (3.8-10.6) k/uL RBC 4.29 (3.80-5.40) m/uL Hgb 13.4 (11.4-16.0) gm/dL Hct 40.8 (34.0-46.0) % MCV 95.1 (80.0-100.0) fL MCH 31.2 (25.0-35.0) pg MCHC 32.8 (31.0-37.0) g/dL RDW 12.6 (11.5-15.5) % Plt Count 412 (150-450) k/uL MPV 9.1 Neutrophils % 65 % Lymphocytes % 24 % Monocytes % 8 % Eosinophils % 2 % Basophils % 1 % Neutrophils # 6.5 (1.3-7.7) k/uL Lymphocytes # 2.4 (1.0-4.8) k/uL Monocytes # 0.8 (0-1.0) k/uL Eosinophils # 0.2 (0-0.7) k/uL Basophils # 0.1 (0-0.2) k/uL Sodium 139 (137-145) mmol/L Potassium 4.4 (3.5-5.1) mmol/L Chloride 106 (98-107) mmol/L Carbon Dioxide 23 (22-30) mmol/L Anion Gap 10 mmol/L BUN 23 H (7-17) mg/dL Creatinine 0.94 (0.52-1.04) mg/dL Est GFR (CKD-EPI)AfAm 73 (>60 ml/min/1.73 sqM) Est GFR (CKD-EPI)NonAf 64 (>60 ml/min/1.73 sqM) Glucose 129 H (74-99) mg/dL Calcium 9.4 (8.4-10.2) mg/dL Total Bilirubin 0.4 (0.2-1.3) mg/dL AST 31 (14-36) U/L ALT 17 (4-34) U/L Alkaline Phosphatase 96 (38-126) U/L Troponin I (0.000-0.034) ng/mL Total Protein 6.5 (6.3-8.2) g/dL Albumin 3.8 (3.5-5.0) g/dL Urine Color Yellow Urine Appearance Cloudy H (Clear) Urine pH 5.5 (5.0-8.0) Ur Specific [place] 1.032 (1.001-1.035) Urine Protein 1+ H (Negative) Urine Glucose (UA) Negative (Negative) Urine Ketones Trace H (Negative) Urine Blood Negative (Negative) Urine Nitrite Negative (Negative) Urine Bilirubin Negative (Negative) Urine Urobilinogen 3.0 (<2.0) mg/dL Ur Leukocyte Esterase Moderate H (Negative) Urine RBC 5 (0-5) /hpf Urine WBC 2 (0-5) /hpf Ur Squamous Epith Cells 5 H (0-4) /hpf Hyaline Casts 38 H (0-2) /lpf Urine Mucus Moderate H (None) /hpf 04/18/21 Range/Units 18:31 WBC (3.8-10.6) k/uL RBC (3.80-5.40) m/uL Hgb (11.4-16.0) gm/dL Hct (34.0-46.0) % MCV (80.0-100.0) fL MCH (25.0-35.0) pg MCHC (31.0-37.0) g/dL RDW (11.5-15.5) % Plt Count (150-450) k/uL MPV Neutrophils % % Lymphocytes % % Monocytes % % Eosinophils % % Basophils % % Neutrophils # (1.3-7.7) k/uL Lymphocytes # (1.0-4.8) k/uL Monocytes # (0-1.0) k/uL Eosinophils # (0-0.7) k/uL Basophils # (0-0.2) k/uL Sodium (137-145) mmol/L Potassium (3.5-5.1) mmol/L Chloride (98-107) mmol/L Carbon Dioxide (22-30) mmol/L Anion Gap mmol/L BUN (7-17) mg/dL Creatinine (0.52-1.04) mg/dL Est GFR (CKD-EPI)AfAm (>60 ml/min/1.73 sqM) Est GFR (CKD-EPI)NonAf (>60 ml/min/1.73 sqM) Glucose (74-99) mg/dL Calcium (8.4-10.2) mg/dL Total Bilirubin (0.2-1.3) mg/dL AST (14-36) U/L ALT (4-34) U/L Alkaline Phosphatase (38-126) U/L Troponin I <0.012 (0.000-0.034) ng/mL Total Protein (6.3-8.2) g/dL Albumin (3.5-5.0) g/dL Urine Color Urine Appearance (Clear) Urine pH (5.0-8.0) Ur Specific [place] (1.001-1.035) Urine Protein (Negative) Urine Glucose (UA) (Negative) Urine Ketones (Negative) Urine Blood (Negative) Urine Nitrite (Negative) Urine Bilirubin (Negative) Urine Urobilinogen (<2.0) mg/dL Ur Leukocyte Esterase (Negative) Urine RBC (0-5) /hpf Urine WBC (0-5) /hpf Ur Squamous Epith Cells (0-4) /hpf Hyaline Casts (0-2) /lpf Urine Mucus (None) /hpf Disposition Clinical Impression: Dehydration, Orthostatic hypotension Disposition: HOME SELF-CARE Condition: Stable Instructions (If sedation given, give patient instructions): Dehydration (ED) Is patient prescribed a controlled substance at d/c from ED?: No Referrals: Bryanna Gutierrez MD [Primary Care Provider] - 1-2 days
[2021-04-18 20:01] VITALS: BP 113/55; PULSE 55; RESP 16; TEMP 97.6
== END 2021-04-18 20:00 | disposition home or self-care (01) ==
LOC: EC 17:20
DX: I95.1 Orthostatic hypotension (principal); E86.0 Dehydration; I10 Essential (primary) hypertension; E78.5 Hyperlipidemia, unspecified; F32.9 Major depressive disorder, single episode, unspecified; M19.90 Unspecified osteoarthritis, unspecified site; Z79.890 Hormone replacement therapy; Z79.899 Other long term (current) drug therapy; Z82.49 Family history of ischemic heart disease and other diseases of the circulatory system; Z83.3 Family history of diabetes mellitus; Z85.828 Personal history of other malignant neoplasm of skin
CPT/HCPCS: 36415; 71046; 80053; 81001; 84484; 85025; 93005; 96360; 99285

== ENCOUNTER → 2021-05-10 | Outpatient (CLI) | payer MEDICARE ==
--- NOTE | 2021-05-10 08:50 | CT ---
EXAMINATION TYPE: CT abdomen w con DATE OF EXAM: 05/10/2021 COMPARISON: None HISTORY: Abdominal pain CT DLP: 1261.1 mGycm CONTRAST: CT scan of the abdomen is performed with Oral Contrast and with IV Contrast, patient injected with 10 0 mL of Isovue 300. FINDINGS: LUNG BASES-: No visible nodule. No infiltrate. LIVER/GB: The gallbladder is surgically absent. Mild hepatic steatosis noted. No space occupying hepa tic lesion. Biliary tree is of normal caliber. PANCREAS: No inflammation. No distinct mass. SPLEEN: No splenic enlargement. No lesion seen. ADRENALS: No nodule. No thickening. KIDNEYS/BLADDER: Wedge-shaped area of abnormal attenuation lower pole of the right kidney which could reflect an infarct however underlying lesion is difficult to exclude. Further evaluation with MRI ad vised. No hydronephrosis. No nephrolithiasis. Urinary bladder grossly unremarkable. Simple cyst upp er pole left kidney. BOWEL: No visualized inflammatory process visualized small and large bowel. Scattered colonic diverti culosis. LYMPH NODES: No greater than 1cm abdominal or pelvic lymph nodes are appreciated. AORTA: No significant abnormality. OSSEOUS STRUCTURES: No significant abnormality is seen. OTHER: Fat-containing midline ventral hernia. IMPRESSION: 1. Wedge-shaped area of abnormal attenuation lower pole of the right kidney which could reflect an in farct however underlying lesion is difficult to exclude. Further evaluation with MRI advised.
== END | disposition home or self-care (01) ==
LOC: RADCTMAIN 07:01
PROVIDERS: ATTEND Internal Medicine
DX: R10.9 Unspecified abdominal pain (principal)
CPT/HCPCS: 82565; 84520; 74160; Q9967

== ENCOUNTER → 2021-07-28 | Outpatient (CLI) | payer MEDICARE ==
--- NOTE | 2021-07-28 12:41 | MR ---
MR pelvis without and with contrast HISTORY: Right lower quadrant pain Multiplanar multisequence and postcontrast images obtained through the pelvis following 10 cc gadolin ium wrist IV. Correlation CT scan 05/10/2021, CT pelvis 03/24/2020 Sigmoid colon, descending colon shows extensive diverticular change. There is associated bowel wall t hickening possibly due to muscular hypertrophy but is indeterminate There is no evidence of ascites. No pelvic adenopathy or free fluid. Uterus and adnexal structures are not seen on the postop changes noted status post partial hysterectomy. Visualized bone marrow signal is maintained. Some facet arthr opathy noted at the lower lumbar spine. No abnormal enhancement following contrast administration. There is no evident appendicitis. The area of abnormal low attenuation seen on CT is not entirely included on the exam, exam was tailor ed for pelvis rather than abdomen, findings on CT could represent small area of renal infarct, follow -up could be performed to assess for change in cortical volume at this level. impression: Diverticulosis as described, if bowel surveillance has not been performed, then it should be considered. Findings of the lower pole of the right kidney as described. Postoperative change. Th e findings above.
== END | disposition home or self-care (01) ==
LOC: RADMRIMAIN 09:29
PROVIDERS: ATTEND Internal Medicine
DX: K57.30 Diverticulosis of large intestine without perforation or abscess without bleeding (principal)
CPT/HCPCS: 72197; A9585

== ENCOUNTER → 2021-08-25 | Outpatient (CLI) | payer MEDICARE ==
--- NOTE | 2021-08-25 08:06 | MR ---
EXAMINATION TYPE: MR kidney wo/w con DATE OF EXAM: 08/25/2021 COMPARISON: CT abdomen May 10, 2021 HISTORY: Right-sided pain. Abnormal CT. CONTRAST: Standard multiplanar, multisequence MRI departmental protocol images were obtained without contrast a nd with 10 mL intravenous Gadavist gadolinium contrast. Imaging performed of the abdomen focusing on the bilateral kidneys. FINDINGS: Kidneys: There is redemonstration of some cortical thinning bilaterally. There are 2-3 simple appear ing thin-walled cysts scattered throughout the left kidney. No hydronephrosis seen bilaterally. At ar ea of concern anteriorly mid to lower pole of the right kidney there is more prominent cortical thinn ing seen near postcontrast axial image 22. No distinct suspicious masses identified. Remainder right kidney shows no solid or cystic mass. Other: Lung bases remain clear. Gallbladder surgically absent. Signal dropout in small left adrenal n odularity consistent with benign lipid rich adenoma. Diverticula in the transverse and left colon. No suspicious bowel dilatation. There is curvilinear mesh type material in the deep mid abdominal anter ior wall. Osseous structures are intact. IMPRESSION: Area of concern on recent CT wedge-shaped area of diminished density shows more prominent cortical thinning on MRI, suspect segmental diminished blood flow and/or infarction of this portion of right kidney. Evidence of chronic medical renal disease bilaterally. No concerning solid or cystic masses in either kidney.
== END | disposition home or self-care (01) ==
LOC: RADMRIMAIN 06:01
PROVIDERS: ATTEND Internal Medicine
DX: N28.89 Other specified disorders of kidney and ureter (principal)
CPT/HCPCS: 74183; A9585

== ENCOUNTER → 2021-12-01 | Outpatient (CLI) | payer MEDICARE ==
--- NOTE | 2021-12-01 15:30 | US ---
EXAMINATION TYPE: US kidneys/renal and bladder DATE OF EXAM: 12/01/2021 COMPARISON: NONE CLINICAL HISTORY: N28.0 RENAL INFARCTION. Renal infarction. EXAM MEASUREMENTS: Right Kidney: 9.8 x 5.9 x 4.8 cm Left Kidney: 10.7 x 6.7 x 5.6 cm Right Kidney: No hydronephrosis or masses seen Left Kidney: Multiple cystic area seen largest measuring 1.3 x 1.4 x 1.1cm, 1.0 x 1.0 x 1.0cm Bladder: wnl Bilateral Jets seen: There is no evidence for hydronephrosis at this point in time. No nephrolithiasis is seen. No solid masses are identified. The urinary bladder is anechoic. Bilateral ureteral jets are seen. Multiple left renal cysts seen, largest measured. IMPRESSION: Multiple left-sided renal cysts.
== END | disposition home or self-care (01) ==
LOC: RADUSWWP 14:47
PROVIDERS: ATTEND Internal Medicine
DX: N28.1 Cyst of kidney, acquired (principal)
CPT/HCPCS: 76770

== ENCOUNTER → 2023-03-30 | Outpatient (CLI) | payer MEDICARE ==
--- NOTE | 2023-03-30 08:58 | BD ---
EXAMINATION TYPE: Axial Bone Density DATE OF EXAM: 03/30/2023 CLINICAL HISTORY: 67 years old Female. ICD-10 CODE: N95.8 MENOPAUSAL Height: 64" Weight: 196.9lbs FRAX RISK QUESTIONS: Alcohol (3 or more units per day): No Family History (Parent hip fracture): No Glucocorticoids (More than 3mos): No (Ex: prednisone, prednisolone, methylprednisolone, dexamethasone, and hydrocortisone). History of Fracture in Adulthood: Yes Secondary Osteoporosis: 1. Type 1 Diabetes: No 2. Hyperthyroidism: No 3. Menopause before 45: No 4. Malnutrition: No 5. Chronic liver disease: No Rheumatoid Arthritis: No Current Tobacco Use: No RISK FACTORS HISTORY OF: Hip Fracture (Right/Left): No Spine Fracture: No History of Wrist Fracture: No Surgery to Spine/Hip(right/left)/Wrist (right/left): No Family History of Osteoporosis: No Active: No Diet low in dairy products/other sources of calcium: No Lost more than 2 inches in height since high school: No Frequent falls: No Poor Health: No Hyperparathyroidism: No Adrenal Insufficiency: No MEDICATIONS: Prednisone or other steroids: No Thyroid Medications: Yes Which medication: Synthroid How Long: Since 1987 Osteoporosis Medications: No Additional Medications: Synthroid, blood pressure medications, anti-depressant medications, vitamin d Additional History: Hx of squamous cell cancer EXAM MEASUREMENTS: Bone mineral densitometry was performed using the [employer] System. Bone mineral density as measured about the Lumbar spine is: ----- L1-L4(G/cm2): 1.503 T Score Values are as follows: ----- L1: 1.2 ----- L2: 1.7 ----- L3: 3.7 ----- L4: 3.6 ----- L1-L4: 2.7 Z Score Values are as follows: ----- L1: 2.0 ----- L2: 2.6 ----- L3: 4.5 ----- L4: 4.4 ----- L1-L4: 3.5 Baseline Bone mineral density about the R hip (g/cm2): 0.949 Bone mineral density about the L hip (g/cm2): 0.991 T Score values are as follows: -----R Neck: -1.5 -----L Neck: -0.6 -----R Total: -0.5 -----L Total: -0.1 Z Score values are as follows: -----R Neck: -0.4 -----L Neck: 0.5 -----R Total: 0.3 -----L Total: 0.7 Baseline FRAX%s: The graph provided illustrates a 9.0% chance for a major osteoporotic fx and a 1.1% chance fo r the hips probability for fx in 10 years time. IMPRESSION: Normal (Values between +1 and -1 indicate normal bone mass). Consider repeating this study in 5 year s or sooner if there is some new clinical indication. NOTE: T-SCORE=SD OF THE YOUNG ADULT MEAN.
--- NOTE | 2023-03-30 09:32 | MM ---
Reason for Exam: Screening (asymptomatic). Last mammogram was performed 5 year(s) and 0 month(s) ago. Patient History: Menarche at age 10. First Full-Term at age 19. Left ovary removed at age 62. Right ovary removed at age 62. Hysterectomy at age 62. Postmenopausal. Risk Values: Karen 5 year model risk: 1.7%. NCI Lifetime model risk: 5.5%. Prior Study Comparison: 07/30/2015 Bilateral Screening Mammogram, [facility]. 08/11/2015 Right Diagnostic Mammogram, [facility]. 04/16/2018 Bilateral Screening Mammogram, [facility]. Tissue Density: The breast tissue is heterogeneously dense. This may lower the sensitivity of mammography. Findings: Analyzed By CAD. Right breast: New grouped calcifications middle depth 6.8 cm in the nipple and 5.5 cm from nipple on MLO and CC view respectively. Left breast: Benign appearing calcifications. There is no suspicious group of microcalcifications or new suspicious mass in either breast. Overall Assessment: Incomplete: need additional imaging evaluation, BI-RAD 0 Management: Diagnostic Mammogram of the right breast. Magnification views right breast. [facility] will attempt to contact patient to return for supplemental views and ultrasound if indicated. Patient should continue monthly self-breast exams. A clinical breast exam by your physician is recommended on an annual basis. This exam should not preclude additional follow-up of suspicious palpable abnormalities. Note on Karen scores and lifetime risk: 1. A Karen score greater than 3% is considered moderate risk. If this is the case, consider specialist referral to assess eligibility for a risk reducing agent. 2. If overall lifetime risk for the development of breast cancer is 20% or higher, the patient may qualify for future screening with alternating mammogram and breast MRI. Electronically signed and approved by: Tavo Zendejas DO
== END | disposition home or self-care (01) ==
LOC: RADMAMWWP 07:28
PROVIDERS: ATTEND Internal Medicine
DX: Z12.31 Encounter for screening mammogram for malignant neoplasm of breast (principal); M85.89 Other specified disorders of bone density and structure, multiple sites; Z78.0 Asymptomatic menopausal state
CPT/HCPCS: 77063; 77067; 77080

== ENCOUNTER 2023-04-01 11:00 | Inpatient (IN) | payer MEDICARE ==
[2023-04-01] MEDS ORDERED: Alteplase PER PHARMACY Stroke 1 EACH MISC MISCELLANE PRN (11:03)
[2023-04-01] MEDS ORDERED: SODIUM CHLORIDE 0.9% 500 ML 500 ML IV STA (11:03)
[2023-04-01 11:05] LABS: Glucose,Whole Blood 102 mg/dL (70-110)
[2023-04-01] MEDS ORDERED: ALTEPLASE 73 MG in EMPTY BAG 1 BAG IV STA (11:07)
[2023-04-01] MEDS ORDERED: ALTEPLASE BOLUS FOR STROKE 8 MG in EMPTY SYRINGE 1 SYR IV STA (11:07)
--- NOTE | 2023-04-01 11:12 | ED ---
General Adult HPI - General Stated complaint: neruro symptoms Time Seen by Provider: 04/01/23 11:00 Source: patient, RN notes reviewed, old records reviewed - History of Present Illness Initial comments: This is a 67-year-old female who presents emergency Department because she was having some difficulty with speech and some left-sided weakness of both her arm and leg. Patient states she was last felt normal at 7 AM this morning. Patient denies any chest pain patient denies any difficulty breathing. Patient states any recent fever chills or cough per patient denies headache patient denies numbness that is focal. Patient does state the left side is weak. Patient denies any abdominal pain. Patient denies any vomiting or diarrhea - Related Data Home Medications Medication Instructions Recorded Confirmed Bisoprolol/Hydrochlorothiazide 1 tab PO DAILY 01/22/14 04/01/23 [Ziac 10-6.25 MG] Aspirin [[place] Aspirin EC] 81 mg PO DAILY 04/01/23 04/01/23 Escitalopram [Lexapro] 5 mg PO DAILY 04/01/23 04/01/23 Levothyroxine Sodium [Synthroid] 112 mcg PO DAILY 04/01/23 04/01/23 Multivitamins, Thera [Multivitamin 1 tab PO DAILY 04/01/23 04/01/23 (formulary)] buPROPion [Wellbutrin] 100 mg PO DAILY 04/01/23 04/01/23 lisinopriL [Zestril] 10 mg PO DAILY 04/01/23 04/01/23 Allergies Allergy/AdvReac Type Severity Reaction Status Date / Time No Known Allergies Allergy Verified 04/01/23 11:49 Review of Systems ROS Statement: Those systems with pertinent positive or pertinent negative responses have been documented in the HPI. ROS Other: All systems not noted in ROS Statement are negative. Past Medical History Past Medical History: Cancer, Hyperlipidemia, Hypertension, Osteoarthritis (OA), Sleep Apnea/CPAP/BIPAP, Thyroid Disorder Additional Past Medical History / Comment(s): Colitis, IBS, hx. Skin Cancer, uses CPAP, frequent left foot & ankle swelling, urinary incontinence,2019 Depression which had to be treated. History of Any Multi-Drug Resistant Organisms: None Reported Past Surgical History: Bariatric Surgery, Cholecystectomy, Hernia Repair, Joint Replacement, Orthopedic Surgery, Tonsillectomy, Tubal Ligation Additional Past Surgical History / Comment(s): Partial Thyroidectomy, D&C., Hemmorroidectomy, left achilles tendon repair. RIGHT KNEE REPLACEMENT, 06-15-16 [facility] 2019 Cataracts both eyes Past Anesthesia/Blood Transfusion Reactions: Motion Sickness, Postoperative Nausea & Vomiting (PONV) Past Psychological History: Depression Past Alcohol Use History: None Reported Past Drug Use History: None Reported - Past Family History Father Additional Family Medical History / Comment(s): Rheumatic fever causing from weak heart Mother Family Medical History: Diabetes Mellitus, Hypertension General Exam - General Exam Comments Initial Comments: GENERAL: Patient is well-developed and well-nourished. Patient is nontoxic and well- hydrated and is in mild distress. ENT: Neck is soft and supple. No significant lymphadenopathy is noted. Oropharynx is clear. Moist mucous membranes. Neck has full range of motion without eliciting any pain. EYES: The sclera were anicteric and conjunctiva were pink and moist. Extraocular mov ements were intact and pupils were equal round and reactive to light. Eyelids were unremarkable. PULMONARY: Unlabored respirations. Good breath sounds bilaterally. No audible rales rhonchi or wheezing was noted. CARDIOVASCULAR: There is a regular rate and rhythm without any murmurs gallops or rubs. ABDOMEN: Soft and nontender with normal bowel sounds. SKIN: Skin is clear with no lesions or rashes and otherwise unremarkable. NEUROLOGIC: Patient is alert and oriented x3. Patient has very slight slurred speech and she agrees it's not normal. Patient has weakness 3 out of 5 left warehouse selector and 3 out of 5 with strength of the left leg. Patient also failed finger-nose testing on the left. Patient's NIH is 4 MUSCULOSKELETAL: Normal extremities with adequate strength and full range of motion. LYMPHATICS: No significant lymphadenopathy is noted PSYCHIATRIC: Normal psychiatric evaluation. Course Vital Signs 04/01/23 04/01/23 04/01/23 11:00 11:12 11:15 Temperature 98.5 F Pulse Rate 64 67 Respiratory 18 18 Rate Blood Pressure 133/77 153/84 O2 Sat by Pulse 98 97 Oximetry 04/01/23 04/01/23 04/01/23 11:30 11:45 12:00 Temperature Pulse Rate 65 60 62 Respiratory 18 18 18 Rate Blood Pressure 147/78 142/77 150/80 O2 Sat by Pulse 7 L 96 97 Oximetry 04/01/23 04/01/23 04/01/23 12:15 12:30 12:45 Temperature Pulse Rate 65 60 65 Respiratory 18 18 18 Rate Blood Pressure 128/83 114/62 O2 Sat by Pulse 97 96 98 Oximetry 04/01/23 04/01/23 13:15 13:45 Temperature Pulse Rate 71 69 Respiratory 18 18 Rate Blood Pressure 131/76 134/66 O2 Sat by Pulse 98 98 Oximetry Medical Decision Making - Medical Decision Making EKG was interpreted by myself. EKG shows sinus rhythm at 67 bpm LA interval 149 QRS is 77 Q-T intervals 390 QTC is 405. EKG shows no ST segment elevation or d epression Was pt. sent in by a medical professional or institution (, PA, CHART CHANGER, urgent care, hospital, or custodial...) When possible be specific @ -No Did you speak to anyone other than the patient for history (EMS, parent, family, police, friend...)? What history was obtained from this source @ -EMS gave us their assessment for the stroke Did you review nursing and triage notes (agree or disagree)? Why? @ -I reviewed and agree with nursing and triage notes Were old charts reviewed (outside hosp., previous admission, EMS record, old EKG, old radiological studies, urgent care reports/EKG's, custodial records)? Report findings @ -I reviewed prior lab work from prior radiological studies this patient Differential Diagnosis (chest pain, altered mental status, abdominal pain women, abdominal pain men, vaginal bleeding, weakness, fever, dyspnea, syncope, headache, dizziness, GI bleed, back pain, seizure, CVA, palpatations, mental health, musculoskeletal)? @ -Differential CVA Ischemic stroke, hemorrhagic stroke, brain tumor, atypical migraine, Wernicke's encephalopathy, seizure, multiple sclerosis, meningitis, encephalitis, hypoglycemia, Guillain-Valenzuela, electrolytes disturbance, myasthenia gravis.... This is not meant to be an all-inclusive list EKG interpreted by me (3pts min.). @ -As above X-rays interpreted by me (1pt min.). @ -Chest x-ray shows no acute abnormality CT interpreted by me (1pt min.). @ -CT scan shows a right frontal infarct of indeterminate age U/S interpreted by me (1pt. min.). @ -None done What testing was considered but not performed or refused? (CT, X-rays, U/S, labs)? Why? @ -None What meds were considered but not given or refused? Why? @ -None Did you discuss the management of the patient with other professionals (professionals i.e. , PA, CHART CHANGER, lab, RT, psych nurse, social work lecturer, motor vehicle license clerk, teacher, law enforcement officer, senior case manager)? Give summary @ -I spoke with [facility] hospitalist and they accepted the admission Was smoking cessation discussed for >3mins.? @ -No Was critical care preformed (if so, how long)? @ -35 minutes Were there social determinants of health that impacted care today? How? (Homelessness, low income, unemployed, alcoholism, drug addiction, transportation, low edu. Level, literacy, decrease access to med. care, mcc, rehab)? @ -No Was there de-escalation of care discussed even if they declined (Discuss DNR or withdrawal of care, Hospice)? DNR status @ -No What co-morbidities impacted this encounter? (DM, HTN, Smoking, COPD, CAD, Cancer, CVA, ARF, Chemo, Hep., AIDS, mental health diagnosis, sleep apnea, morbid obesity)? @ -None Was patient admitted / discharged? Hospital course, mention meds given and route, prescriptions, significant lab abnormalities, going to OR and other pertinent info. @ -She came in with neurologic deficit with an NIH of 4 and it started 4 hours prior to arrival. A code alteplase was called overhead immediately however when patient came back from CAT scan her symptoms almost completely resolved I spoke with the neuro interventional list and he stated that no alteplase should be given I was in agreement with that I felt the alteplase CAT scan showed a frontal infarct and therefore alteplase was contraindicated this point Undiagnosed new problem with uncertain prognosis? @ -No Drug Therapy requiring intensive monitoring for toxicity (Heparin, Nitro, Insulin, Cardizem)? @ -No Were any procedures done? @ -No Diagnosis/symptom? @ -CVA Acute, or Chronic, or Acute on Chronic? @ -Acute Uncomplicated (without systemic symptoms) or Complicated (systemic symptoms)? @ -Complicated Side effects of treatment? @ -No Exacerbation, Progression, or Severe Exacerbation? @ -No Poses a threat to life or bodily function? How? (Chest pain, [place], GA, pneumonia, PE, COPD, DKA, ARF, appy, cholecystitis, CVA, Diverticulitis, Homicidal, Suicidal, threat to staff... and all critical care pts) @ -Yes this could lead to severe deficit or - Lab Data Result diagrams: 04/01/23 11:29 04/01/23 11:29 Lab Results 04/01/23 04/01/23 04/01/23 Range/Units 11:03 11:29 11:29 WBC 8.6 (3.8-10.6) k/uL RBC 4.53 (3.80-5.40) m/uL Hgb 13.9 (11.4-16.0) gm/dL Hct 41.7 (34.0-46.0) % MCV 92.1 (80.0-100.0) fL MCH 30.7 (25.0-35.0) pg MCHC 33.3 (31.0-37.0) g/dL RDW 13.5 (11.5-15.5) % Plt Count 375 (150-450) k/uL MPV 9.1 Neutrophils % 53 % Lymphocytes % 35 % Monocytes % 6 % Eosinophils % 2 % Basophils % 0 % Neutrophils # 4.6 (1.3-7.7) k/uL Lymphocytes # 3.0 (1.0-4.8) k/uL Monocytes # 0.6 (0-1.0) k/uL Eosinophils # 0.2 (0-0.7) k/uL Basophils # 0.0 (0-0.2) k/uL PT 9.7 (9.0-12.0) sec INR 0.9 (<1.2) APTT 22.7 (22.0-30.0) sec Sodium (137-145) mmol/L Potassium (3.5-5.1) mmol/L Chloride (98-107) mmol/L Carbon Dioxide (22-30) mmol/L Anion Gap mmol/L BUN (7-17) mg/dL Creatinine (0.52-1.04) mg/dL Est GFR (CKD-EPI)AfAm (>60 ml/min/1.73 sqM) Est GFR (CKD-EPI)NonAf (>60 ml/min/1.73 sqM) Glucose (74-99) mg/dL POC Glucose (mg/dL) 102 (70-110) mg/dL POC Glu Vegetable Grader ID Anjum Portillo Calcium (8.4-10.2) mg/dL Total Bilirubin (0.2-1.3) mg/dL AST (14-36) U/L ALT (4-34) U/L Alkaline Phosphatase (38-126) U/L Creatine Kinase (30-135) U/L Troponin I (0.000-0.034) ng/mL Total Protein (6.3-8.2) g/dL Albumin (3.5-5.0) g/dL 04/01/23 04/01/23 Range/Units 11:29 11:29 WBC (3.8-10.6) k/uL RBC (3.80-5.40) m/uL Hgb (11.4-16.0) gm/dL Hct (34.0-46.0) % MCV (80.0-100.0) fL MCH (25.0-35.0) pg MCHC (31.0-37.0) g/dL RDW (11.5-15.5) % Plt Count (150-450) k/uL MPV Neutrophils % % Lymphocytes % % Monocytes % % Eosinophils % % Basophils % % Neutrophils # (1.3-7.7) k/uL Lymphocytes # (1.0-4.8) k/uL Monocytes # (0-1.0) k/uL Eosinophils # (0-0.7) k/uL Basophils # (0-0.2) k/uL PT (9.0-12.0) sec INR (<1.2) APTT (22.0-30.0) sec Sodium 136 L (137-145) mmol/L Potassium 4.5 (3.5-5.1) mmol/L Chloride 105 (98-107) mmol/L Carbon Dioxide 23 (22-30) mmol/L Anion Gap 8 mmol/L BUN 13 (7-17) mg/dL Creatinine 0.77 (0.52-1.04) mg/dL Est GFR (CKD-EPI)AfAm >90 (>60 ml/min/1.73 sqM) Est GFR (CKD-EPI)NonAf 80 (>60 ml/min/1.73 sqM) Glucose 91 (74-99) mg/dL POC Glucose (mg/dL) (70-110) mg/dL POC Glu Vegetable Grader ID Calcium 9.2 (8.4-10.2) mg/dL Total Bilirubin 0.6 (0.2-1.3) mg/dL AST 26 (14-36) U/L ALT 20 (4-34) U/L Alkaline Phosphatase 81 (38-126) U/L Creatine Kinase 33 (30-135) U/L Troponin I <0.012 (0.000-0.034) ng/mL Total Protein 6.5 (6.3-8.2) g/dL Albumin 3.6 (3.5-5.0) g/dL Critical Care Time Critical Care Time: Yes Total Critical Care Time: 35 Disposition Clinical Impression: Cerebrovascular accident (CVA) Disposition: ADMITTED IP TO THIS HOSP Referrals: Bryanna Gutierrez MD [Primary Care Provider] - 1-2 days Time of Disposition: 14:18
--- NOTE | 2023-04-01 11:15 | CT ---
EXAMINATION TYPE: CT brain wo con for TPA CT DLP: 1153.4 mGycm, Automated exposure control for dose reduction was used. DATE OF EXAM: 04/01/2023 11:11 AM COMPARISON: No. CLINICAL INDICATION:Female, 67 years old with history of Neuro deficit, acute, stroke suspected, Left sided weakness TECHNIQUE: Brain: Axial CT images of the brain were obtained with coronal and sagittal reformats created and rev iewed. Contrast used: None. Oral contrast used: None. FINDINGS: Brain: Extra-axial spaces: No abnormal extra-axial fluid collections. Ventricular system: Within normal limits Cerebral parenchyma: Age-indeterminate injury of the right frontal lobe No acute intraparenchymal hem orrhage or mass effect. The remainder of the ledesma-white junctions are well differentiated. Cerebellum: Unremarkable. Mass effect: No evidence of midline shift. Intracranial vasculature: Atherosclerotic calcifications of the intracranial vessels. Soft tissues: Normal. Calvarium/osseous structures: No depressed skull fracture. Paranasal sinuses and mastoid air cells: Mild scattered paranasal sinus disease. Visualized orbits: Bilateral aphakia IMPRESSION: Right frontal lobe age-indeterminate injury. No evidence for intracranial hemorrhage.
--- NOTE | 2023-04-01 11:38 | CT ---
EXAMINATION TYPE: CT angio head neck CT DLP: 576.7 mGycm, Automated exposure control for dose reduction was used. DATE OF EXAM: 04/01/2023 11:29 AM COMPARISON: CT brain 04/01/2023. CLINICAL INDICATION:Female, 67 years old with history of Neuro deficit, acute, stroke suspected; PHH, Left sided weakness and slurred speech. TECHNIQUE: Axially acquired helical CT angiogram of the head and neck was obtained with contrast util izing 65 cc of Isovue-370 administered intravenously. Axial images are supplemented with 3D reconstru ctions which were post-processed at an independent workstation. NASCET criteria used. FINDINGS: CTA HEAD: No evidence of acute intracranial hemorrhage, mass effect, or midline shift. The ventricles, sulci, a nd cisterns are unremarkable. The visualized portions of the internal carotid arteries, middle cerebral arteries, anterior cerebral arteries, and posterior cerebral arteries are patent. Anatomic variant of the left A1 segment. The basilar and vertebral arteries are patent. CTA NECK: Right Carotid System: The common carotid artery and external carotid artery are patent. Mild atherosclerotic calcification at the carotid bifurcation with less than 50% stenosis at the origin of the right internal carotid ar carl. The remaining portions of the internal carotid artery demonstrate normal size without significa nt narrowing. Left Carotid System: The common carotid artery and external carotid artery are patent. The carotid bifurcation demonstrate s no evidence of hemodynamically significant stenosis. The remaining portions of the internal carotid artery demonstrate normal size without significant narrowing. Vertebral arteries are patent without evidence hemodynamically significant stenosis. There is a three-vessel aortic arch. The origins of the great vessels are patent. No evidence of hemo dynamically significant stenosis. Degenerative changes of the cervical spine. The right thyroid lobe appears surgically absent. Mucosal thickening of the bilateral maxillary sinuses. IMPRESSION: 1. No evidence of dissection of the cervical internal carotid arteries or vertebral arteries. No sign ificant stenosis involving the left carotid arterial system. Less than 50% stenosis involving the ammon gin of the right internal carotid artery. 2. No evidence of high-grade stenosis or intracranial aneurysm.
[2023-04-01 12:03] LABS: Basophils % (A) 0 %; Eosinophils # (A) 0.2 k/uL (0-0.7); Eosinophils % (A) 2 %; HCT 41.7 % (34.0-46.0); HGB 13.9 gm/dL (11.4-16.0); Lymphocytes % (A) 35 %; MCH 30.7 pg (25.0-35.0); MCHC 33.3 g/dL (31.0-37.0); MCV 92.1 fL (80.0-100.0); Mean Platelet Volume 9.1; Monocytes # (A) 0.6 k/uL (0-1.0); Monocytes % (A) 6 %; Neutrophils # (A) 4.6 k/uL (1.3-7.7); Neutrophils % (A) 53 %; Platelet Count 375 k/uL (150-450); RBC 4.53 m/uL (3.80-5.40); RDW 13.5 % (11.5-15.5); WBC 8.6 k/uL (3.8-10.6)
[2023-04-01] MEDS ORDERED: SODIUM CHLORIDE 0.9% 50 ML MINI-BAG IV ONE (12:07)
--- NOTE | 2023-04-01 12:08 | XR ---
EXAMINATION TYPE: XR chest 2V DATE OF EXAM: 04/01/2023 11:47 AM COMPARISON: Chest radiographs from 04/18/2021 TECHNIQUE: XR chest 2V Frontal and lateral views of the chest. CLINICAL INDICATION:Female, 67 years old with history of altered mental status; FINDINGS: Lungs/Pleura: There is no evidence of pleural effusion, focal consolidation, or pneumothorax. Pulmonary vascularity: Unremarkable. Heart/mediastinum: Cardiomediastinal silhouette is prominent in size. Musculoskeletal: No acute osseous pathology. Mild degenerative changes of the thoracic spine. IMPRESSION: No acute cardiopulmonary disease/process.
[2023-04-01 12:14] LABS: INR 0.9 (<1.2); Partial Thromboplastin Time 22.7 sec (22.0-30.0); Prothrombin Time 9.7 sec (9.0-12.0)
[2023-04-01 12:18] LABS: ALT 20 U/L (4-34); AST 26 U/L (14-36); African American GFR (CKD) >90 (>60 ml/min/1.73 sqM); Albumin 3.6 g/dL (3.5-5.0); Alkaline Phosphatase 81 U/L (38-126); Anion Gap 8 mmol/L; Blood Urea Nitrogen 13 mg/dL (7-17); Calcium 9.2 mg/dL (8.4-10.2); Carbon Dioxide 23 mmol/L (22-30); Chloride 105 mmol/L (98-107); Creatine Kinase 33 U/L (30-135); Glucose 91 mg/dL (74-99); Non-African American GFR(CKD) 80 (>60 ml/min/1.73 sqM); Sodium 136 mmol/L (137-145); Total Bilirubin 0.6 mg/dL (0.2-1.3); Total Protein 6.5 g/dL (6.3-8.2)
[2023-04-01 12:37] LABS: Potassium 4.5 mmol/L (3.5-5.1)
[2023-04-01] MEDS ORDERED: CLOPIDOGREL 75 MG TAB PO SCH (15:45)
[2023-04-01] MEDS ORDERED: RX INFO: IV CONTRAST WAS GIVEN 1 EACH MISC MISCELLANE PRN (15:58)
--- NOTE | 2023-04-01 16:09 | P.CNNES ---
History of Present Illness Consult date: 04/01/23 Requesting physician: Preston Doran Reason for Consult: cva History of Present Illness: This is a 67-year-old woman with history of hypertension, remote renal clots who presented emergency department because of left sided weakness, left facial droop slurring the speech. She is accompanied with her and her daughter will help with some of the history. She presented to our facility today 11:00 AM. Patient stated that she woke up today at 7:00 in the morning and was doing well and had no issues and then went back to bed immediately after that. It seems that her dog woke her up around 1010 10 AM and the patient was having difficulty getting her words out. She stated that that the dog is barking and just had difficulty forming the right words and she felt things were not connecting. Seems that she had left-sided weakness and had to slide off of the bed and the eventually stood up and was leading against the wall door asking her to help her. Her the noticed that she had left facial droop and the was a slurring her speech. She denies any history of stroke. She states that she is on the baby aspirin but is not compliant taking the medication every day. Denies any atrial fibrillation or flutter. She has a remote history of tobacco use. She stated that in the past she was told she had a infarct in one of her kidneys but that was remote and has not followed up after that she does not recall which kidney was and the unknown cause. Currently she feels back to baseline. Some of the workup during this hospital visit consisted of: Initial serum glucose is 91 and the POC glucose is 102. CT of the head is reported as right frontal lobe age indeterminate injury. No evidence for intracranial hemorrhage. I personally reviewed the CT of the head and I feel possibly it's a subacute right frontal ischemic stroke. CT angiography of the head and neck was reported as no evidence of dissection of the cervical internal carotid artery or vertebral artery. No significant sten osis involving the left cervical internal system. Less than 50% stenosis involving the origin of the right internal carotid artery. No evidence of high- grade stenosis or intracranial aneurysm. EKG is reported as sinus rhythm. Right axis deviation. The ED team she had NIH stroke scale of 04 and a code stroke was activated and her symptoms completely resolved in the ED. As a result no IV TPA since her symptoms almost closely resolved. No IV TPA since her symptoms almost completely resolved as well as a CAT scan showed the an infarct which was felt a contraindication. Was felt to IV TPA risk outweigh the benefit. Review of Systems Review of system: The 12 point system was reviewed and apparent positive and negative per HPI. Past Medical History Past Medical History: Cancer, Hyperlipidemia, Hypertension, Osteoarthritis (OA), Sleep Apnea/CPAP/BIPAP, Thyroid Disorder Additional Past Medical History / Comment(s): Colitis, IBS, hx. Skin Cancer, uses CPAP, frequent left foot & ankle swelling, urinary incontinence,2019 Depression which had to be treated. History of Any Multi-Drug Resistant Organisms: None Reported Past Surgical History: Bariatric Surgery, Cholecystectomy, Hernia Repair, Joint Replacement, Orthopedic Surgery, Tonsillectomy, Tubal Ligation Additional Past Surgical History / Comment(s): Partial Thyroidectomy, D&C., Hemmorroidectomy, left achilles tendon repair. RIGHT KNEE REPLACEMENT, 06-15-16 [facility] 2019 Cataracts both eyes Past Anesthesia/Blood Transfusion Reactions: Motion Sickness, Postoperative Nausea & Vomiting (PONV) Past Psychological History: Depression Past Alcohol Use History: None Reported Past Drug Use History: None Reported - Past Family History Father Additional Family Medical History / Comment(s): Rheumatic fever causing from weak heart Mother Family Medical History: Diabetes Mellitus, Hypertension Medications and Allergies Home Medications Medication Instructions Recorded Confirmed Type Bisoprolol/Hydrochlorothiazide 1 tab PO DAILY 01/22/14 04/01/23 History [Ziac 10-6.25 MG] Aspirin [Poole Aspirin EC] 81 mg PO DAILY 04/01/23 04/01/23 History Escitalopram [Lexapro] 5 mg PO DAILY 04/01/23 04/01/23 History Levothyroxine Sodium [Synthroid] 112 mcg PO DAILY 04/01/23 04/01/23 History Multivitamins, Thera [Multivitamin 1 tab PO DAILY 04/01/23 04/01/23 History (formulary)] buPROPion [Wellbutrin] 100 mg PO DAILY 04/01/23 04/01/23 History lisinopriL [Zestril] 10 mg PO DAILY 04/01/23 04/01/23 History Allergies Allergy/AdvReac Type Severity Reaction Status Date / Time No Known Allergies Allergy Verified 04/01/23 11:49 Physical Examination - Vital Signs Vital Signs: Vital Signs Temp Pulse Resp BP Pulse Ox 04/01/23 13:45 69 18 134/66 98 04/01/23 13:15 71 18 131/76 98 04/01/23 12:45 65 18 114/62 98 04/01/23 12:30 60 18 128/83 96 04/01/23 12:15 65 18 97 04/01/23 12:00 62 18 150/80 97 04/01/23 11:45 60 18 142/77 96 04/01/23 11:30 65 18 147/78 7 L 04/01/23 11:15 67 18 153/84 97 04/01/23 11:12 64 18 133/77 98 04/01/23 11:00 98.5 F Intake and Output 04/01/23 04/01/23 04/01/23 06:59 14:59 22:59 Other: Weight 90.1 kg GENERAL: The patient is lying in bed and is not in acute distress. NEUROLOGICAL: Higher mental function: The patient is awake, alert, oriented to self, place and time. Patient is following commands. No aphasia and no neglect. Cranial nerves: The pupils are round, equal and reactive to light and accommodation. Visual johnson are full to confrontation throughout. Extraocular movement is intact no nystagmus is noted. Facial sensation is normal to touch throughout. The facial strength is normal throughout. Hearing is normal bilaterally to hand rub. Tongue is midline and moved [id number] without any difficulty. No dysarthria is noted. Shoulder shrug is normal bilaterally. Motor: The strength is 5 over 5 throughout. Normal tone and bulk. Cerebellum: Normal finger to nose heel to chin bilaterally. Sensation: Sensation is seems decrease sensation in left foot to touch compared to right. Otherwise normal to touch throughout. Reflexes (right/left): 2+ throughout except ankles are 1+. Plantars are mute bilaterally. Results - Laboratory Findings CBC and BMP: 04/01/23 11:29 04/01/23 11:29 Abnormal Lab Findings: Abnormal Labs 04/01/23 11:29 Sodium 136 L Assessment and Plan Assessment: This is a 67-year-old woman who presented because of weakness and numbness as well as slurring of the speech initially noticed symptoms around 10:10am today. Her symptoms has resolved. In the ED her NIH stroke scale was a 4 by symptoms were almost resolving in the ED and a CAT scan showed the stroke over the right frontal. I felt it seems more subacute right frontal stroke. No IV TPA since symptoms has resolved and had a stroke on the CAT scan and it was felt the risk outweighed the benefit. Acute to Subacute ischemic stroke. On examination seems she continues to have left lower extremity numbness mostly in the foot. 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 In addition I started the patient on Plavix 75 mg daily. For now patient to be on dual antiplatelets. I also started the patient on Lipitor 40 mg daily at bedtime I ordered MRI of the brain, 2-D echo, carotid duplex, TSH, hemoglobin A1c Every 4 hours neuro checks Cardiac monitoring PT OT and MOTOR WINDER are consulted Recommend permissive hypertension for 24-48 hours. I am not sure about this history of infarct in the renal pelvis in the past. We'll defer further investigation to the primary team. Patient needs to follow up with welcome wagon host/hostess. We'll defer the rest of the medical management to primary team For DVT prophylaxis I started the patient on subcu heparin 5000 units every 12 hours The plan discussed with the patient, her was at bedside and her daughter. Thank you for the consultation. Time with Patient: Greater than 30
--- NOTE | 2023-04-01 18:30 | P.HPIM ---
History of Present Illness H&P Date: 04/01/23 Chief Complaint: Left-sided weakness 67-year-old female who presents emergency Department because she was having some difficulty with speech and some left-sided weakness of both her arm and leg. Patient states she was last felt normal at 7 AM this morning. Patient denies a ny chest pain patient denies any difficulty breathing. Patient states any recent fever chills or cough per patient denies headache patient denies numbness that is focal. Patient does state the left side is weak. Patient denies any abdominal pain. Patient denies any vomiting or diarrhea CT of the head is reported as right frontal lobe age indeterminate injury. No evidence for intracranial hemorrhage. CT angiography of the head and neck was reported as no evidence of dissection of the cervical internal carotid artery or vertebral artery. No significant stenosis involving the left cervical internal system. Less than 50% stenosis involving the origin of the right internal carotid artery. No evidence of high- grade stenosis or intracranial aneurysm. EKG is reported as sinus rhythm. Right axis deviation. Patient had NIH stroke scale of 04 and a code stroke was activated and her sympt oms completely resolved in the ED. As a result no IV TPA since her symptoms almost closely resolved. No IV TPA since her symptoms almost completely resolved as well as a CAT scan showed the an infarct which was felt a contraindication. Was felt to IV TPA risk outweigh the benefit. Review of Systems REVIEW OF SYSTEMS: CONSTITUTIONAL: No fever, no malaise, no fatigue. HEENT: No recent visual problems or hearing problems. Denied any sore throat. CARDIOVASCULAR: No chest pain, orthopnea, PND, no palpitations, no syncope. PULMONARY: No shortness of breath, no cough, no hemoptysis. GASTROINTESTINAL: No diarrhea, no nausea, no vomiting, no abdominal pain. NEUROLOGICAL: No headaches, no weakness, no numbness. HEMATOLOGICAL: Denies any bleeding or petechiae. GENITOURINARY: Denies any burning micturition, frequency, or urgency. MUSCULOSKELETAL/RHEUMATOLOGICAL: Denies any joint pain, swelling, or any muscle pain. ENDOCRINE: Denies any polyuria or polydipsia. The rest of the 14-point review of systems is negative. Past Medical History Past Medical History: Cancer, Hyperlipidemia, Hypertension, Osteoarthritis (OA), Sleep Apnea/CPAP/BIPAP, Thyroid Disorder Additional Past Medical History / Comment(s): Colitis, IBS, hx. Skin Cancer, uses CPAP, frequent left foot & ankle swelling, urinary incontinence,2019 Depression which had to be treated. History of Any Multi-Drug Resistant Organisms: None Reported Past Surgical History: Bariatric Surgery, Cholecystectomy, Hernia Repair, Joint Replacement, Orthopedic Surgery, Tonsillectomy, Tubal Ligation Additional Past Surgical History / Comment(s): Partial Thyroidectomy, D&C., Hemmorroidectomy, left achilles tendon repair. RIGHT KNEE REPLACEMENT, 06-15-16 [facility] 2019 Cataracts both eyes Past Anesthesia/Blood Transfusion Reactions: Motion Sickness, Postoperative Nausea & Vomiting (PONV) Past Psychological History: Depression Past Alcohol Use History: None Reported Past Drug Use History: None Reported - Past Family History Father Additional Family Medical History / Comment(s): Rheumatic fever causing from weak heart Mother Family Medical History: Diabetes Mellitus, Hypertension Medications and Allergies Home Medications Medication Instructions Recorded Confirmed Type Bisoprolol/Hydrochlorothiazide 1 tab PO DAILY 01/22/14 04/01/23 History [Ziac 10-6.25 MG] Aspirin [Cutler Aspirin EC] 81 mg PO DAILY 04/01/23 04/01/23 History Escitalopram [Lexapro] 5 mg PO DAILY 04/01/23 04/01/23 History Levothyroxine Sodium [Synthroid] 112 mcg PO DAILY 04/01/23 04/01/23 History Multivitamins, Thera [Multivitamin 1 tab PO DAILY 04/01/23 04/01/23 History (formulary)] buPROPion [Wellbutrin] 100 mg PO DAILY 04/01/23 04/01/23 History lisinopriL [Zestril] 10 mg PO DAILY 04/01/23 04/01/23 History Allergies Allergy/AdvReac Type Severity Reaction Status Date / Time No Known Allergies Allergy Verified 04/01/23 11:49 Physical Exam Vitals: Vital Signs Temp Pulse Resp BP Pulse Ox 04/01/23 13:45 69 18 134/66 98 04/01/23 13:15 71 18 131/76 98 04/01/23 12:45 65 18 114/62 98 04/01/23 12:30 60 18 128/83 96 04/01/23 12:15 65 18 97 04/01/23 12:00 62 18 150/80 97 04/01/23 11:45 60 18 142/77 96 04/01/23 11:30 65 18 147/78 7 L 04/01/23 11:15 67 18 153/84 97 04/01/23 11:12 64 18 133/77 98 04/01/23 11:00 98.5 F Intake and Output 04/01/23 04/01/23 04/01/23 06:59 14:59 22:59 Other: Weight 90.1 kg PHYSICAL EXAMINATION: GENERAL: The patient is alert and oriented x3, not in any acute distress. Well developed, well nourished. HEENT: Pupils are round and equally reacting to light. EOMI. No scleral icterus. No conjunctival pallor. Normocephalic, atraumatic. No pharyngeal erythema. No thyromegaly. CARDIOVASCULAR: S1 and S2 present. No murmurs, rubs, or gallops. PULMONARY: Chest is clear to auscultation, no wheezing or crackles. ABDOMEN: Soft, nontender, nondistended, normoactive bowel sounds. No palpable organomegaly. MUSCULOSKELETAL: No joint swelling or deformity. EXTREMITIES: No cyanosis, clubbing, or pedal edema. NEUROLOGICAL: Gross neurological examination did not reveal any focal deficits. SKIN: No rashes. Results CBC & Chem 7: 04/01/23 11:29 04/01/23 11:29 Labs: Abnormal Lab Results - Last 24 Hours (Table) 04/01/23 Range/Units 11:29 Sodium 136 L (137-145) mmol/L Assessment and Plan Assessment: 1. Acute to subacute ischemic stroke Patient is placed on aspirin 325mg daily; Plavix 75 mg daily. For now patient to be on dual antiplatelets. I ordered MRI of the brain, 2-D echo, carotid duplex, TSH, hemoglobin A1c Every 4 hours neuro checks Cardiac monitoring PT OT and CERAMIC TILE INSTALLATION HELPER are consulted Recommend permissive hypertension for 24-48 hours. 2. Hypertension; patient takes Ziac6.25 mg daily along with lisinopril 10 mg daily; we will hold off on antihypertensive therapy for permissive hypertension 3. Hyperlipidemia; currently not on any statin therapy at home; patient has been placed on Lipitor 40 mg daily at bedtime 4. Hypothyroidism; patient takes levothyroxine 115 MCG daily; we will switch to IV levothyroxine till swallow evaluation is completed 5. Depression; Lexapro 5 mg daily; Wellbutrin 100 mg daily DVT prophylaxis; SCDs CODE STATUS; full code
[2023-04-01] MEDS: CLOPIDOGREL 75 MG TAB PO SCH (18:40)
--- NOTE | 2023-04-01 18:46 | US ---
EXAMINATION TYPE: US carotid duplex BILAT DATE OF EXAM: 04/01/2023 COMPARISON: NONE CLINICAL INDICATION: Female, 67 years old with history of stroke; TIA TECHNIQUE: Carotid duplex ultrasound examination. Indirect Doppler criteria was utilized. FINDINGS: EXAM MEASUREMENTS: RIGHT: Peak Systolic Velocity (PSV) cm/sec ----- Right CCA: 95.1 ----- Right ICA: 155.4 ----- Right ECA: 85.7 ICA/CCA ratio: 1.6 RIGHT: End Diastole cm/sec ----- Right CCA: 27.3 ----- Right ICA: 50.9 ----- Right ECA: 11.4 LEFT: Peak Systolic Velocity (PSV) cm/sec ----- Left CCA: 95.0 ----- Left ICA: 129.9 ----- Left ECA: 95.0 ICA/CCA ratio: 1.4 LEFT: End Diastole cm/sec ----- Left CCA: 25.3 ----- Left ICA: 36.9 ----- Left ECA: 16.0 VERTEBRALS (direction of flow): Right Vertebral: Antegrade Left Vertebral: Antegrade Rhythm: Normal WASTE COLLECTION DRIVER NOTES: No significant stenosis seen IMPRESSION: 50-69% stenosis of the bilateral carotid bifurcations by peak systolic velocity. Criteria for Assigning % of Stenosis / Diameter reduction (Estimation based on the indirect measurements of the internal carotid artery velocities (ICA PSV). 1. Normal (no stenosis)=ICA PSV < 125 cm/s: ratio < 2.0: ICA EDV<40 cm/s. 2. Less than 50% stenosis=ICA PSV < 125 cm/s: ratio < 2.0: ICA EDV<40 cm/s. 3. 50 to 69% stenosis=ICA PSV of 125 to 230 cm/s: ration 2.0 ? 4.0: ICA EDV 40-100 cm/s. 4. Greater than 70% stenosis to near occlusion= ICA PSV > 230 cm/s: ratio > 4.0: ICA EDV > 100 cm/s. 5. Near occlusion= ICA PSV velocities may be low or undetectable: variable ratio and ICA EDV. 6. Total occlusion=unable to detect flow.
[2023-04-01] MEDS: HEPARIN SODIUM,PORCINE/PF 5,000 UNIT/0.5 ML SYRINGE SQ SCH (19:57)
[2023-04-01] MEDS: ATORVASTATIN 40 MG TAB PO SCH (19:57)
[2023-04-02] MEDS: ESCITALOPRAM 5 MG TAB PO SCH (09:19)
[2023-04-02] MEDS: LEVOTHYROXINE IVP 100 MCG/5 ML VIAL IV SCH (09:19)
[2023-04-02] MEDS: CLOPIDOGREL 75 MG TAB PO SCH (09:19)
[2023-04-02] MEDS: HEPARIN SODIUM,PORCINE/PF 5,000 UNIT/0.5 ML SYRINGE SQ SCH ×2 (09:19→20:19)
[2023-04-02] MEDS: ASPIRIN 325 MG TAB PO SCH (09:19)
[2023-04-02] MEDS: buPROPion 100 MG TAB PO SCH (09:19)
[2023-04-02 11:23] LABS: Basophils % (A) 1 %; Eosinophils # (A) 0.1 k/uL (0-0.7); Eosinophils % (A) 2 %; HCT 43.5 % (34.0-46.0); Lymphocytes # (A) 2.3 k/uL (1.0-4.8); Lymphocytes % (A) 32 %; MCH 30.4 pg (25.0-35.0); MCHC 32.2 g/dL (31.0-37.0); MCV 94.4 fL (80.0-100.0); Mean Platelet Volume 8.8; Monocytes # (A) 0.5 k/uL (0-1.0); Monocytes % (A) 7 %; Neutrophils # (A) 4.3 k/uL (1.3-7.7); Neutrophils % (A) 58 %; Platelet Count 346 k/uL (150-450); RBC 4.61 m/uL (3.80-5.40); WBC 7.4 k/uL (3.8-10.6)
--- NOTE | 2023-04-02 11:36 | P.PN ---
Subjective Progress Note Date: 04/02/23 The patient seen at bedside and is back to baseline. Denies of any new neurological issues. Denies of any headache any nausea any vomiting. Objective - Vital Signs Vital signs: Vital Signs Temp 97.6 F 04/02/23 09:15 Pulse 68 04/02/23 09:15 Resp 16 04/02/23 09:15 BP 137/82 04/02/23 09:15 Pulse Ox 96 04/02/23 09:15 FiO2 Intake & Output 04/01/23 04/02/23 04/02/23 18:59 06:59 18:59 Intake Total 1080 Balance 1080 Weight 90.1 kg 90.1 kg Intake: Oral 1080 Other: Voiding Method Toilet Toilet # Voids 2 - Exam GENERAL: The patient is lying in bed and is not in acute distress. NEUROLOGICAL: Higher mental function: The patient is awake, alert, oriented to self, place and time. Patient is following commands. No aphasia and no neglect. Cranial nerves: The pupils are round, equal and reactive to light and accommodation. Visual johnson are full to confrontation throughout. Extraocular movement is intact no nystagmus is noted. Facial sensation is normal to touch throughout. The facial strength is normal throughout. Hearing is normal bilaterally to hand rub. Tongue is midline and moved [id number] without any difficulty. No dysarthria is noted. Shoulder shrug is normal bilaterally. Motor: The strength is 5 over 5 throughout. Normal tone and bulk. Cerebellum: Normal finger to nose heel to chin bilaterally. Sensation: Sensation is seems decrease sensation in left foot to touch compared to right. Otherwise normal to touch throughout. Reflexes (right/left): 2+ throughout except ankles are 1+. Plantars are mute bilaterally. Some of the workup during this hospital visit consisted of: Initial serum glucose is 91 and the POC glucose is 102. CT of the head is reported as right frontal lobe age indeterminate injury. No evidence for intracranial hemorrhage. I personally reviewed the CT of the head and I feel possibly it's a subacute right frontal ischemic stroke. CT angiography of the head and neck was reported as no evidence of dissection of the cervical internal carotid artery or vertebral artery. No significant stenosis involving the left cervical internal system. Less than 50% stenosis involving the origin of the right internal carotid artery. No evidence of high- grade stenosis or intracranial aneurysm. EKG is reported as sinus rhythm. Right axis deviation. Carotid duplex is reported as 50-69% stenosis bilateral carotid bifurcation by peak velocity. - Labs CBC & Chem 7: 04/02/23 10:42 04/01/23 11:29 Labs: Abnormal Lab Results - Last 24 Hours (Table) 04/01/23 Range/Units 11:29 Sodium 136 L (137-145) mmol/L Assessment and Plan Assessment: This is a 67-year-old woman who presented because of weakness and numbness as well as slurring of the speech initially noticed symptoms around 10:10am today. Her symptoms has resolved. In the ED her NIH stroke scale was a 4 by symptoms were almost resolving in the ED and a CAT scan showed the stroke over the right frontal. I felt it seems more subacute right frontal stroke. No IV TPA since s ymptoms has resolved and had a stroke on the CAT scan and it was felt the risk outweighed the benefit. Acute to Subacute ischemic stroke. On examination seems she continues to have left lower extremity numbness mostly in the foot. Discordant bilateral carotid stenosis, 50-69% on carotid duplex. While less than 50% stenosis involving the origin of right internal carotid artery on the CTA. 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 In addition I started the patient on Plavix 75 mg daily. For now patient to be on dual antiplatelets. I also started the patient on Lipitor 40 mg daily at bedtime Pending MRI of the brain, 2-D echo, carotid duplex, TSH, hemoglobin A1c Discordant bilateral carotid stenosis, 50-69% on carotid duplex. While less than 50% stenosis involving the origin of right internal carotid artery on the CTA. I consulted vascular surgery team. Every 4 hours neuro checks Cardiac monitoring PT OT and SUPERVISOR TYPE DISK QUALITY CONTROL are consulted Recommend permissive hypertension anette additional 24 hours. I am not sure about this history of infarct in the renal pelvis in the past. We'll defer further investigation to the primary team. Patient needs to follow up with travel accommodation inspector. We'll defer the rest of the medical management to primary team For DVT prophylaxis: On subcu heparin 5000 units every 12 hours The plan discussed with the patient and her nurse. Dr. Abel will start neurology service tomorrow A.M. Time with Patient: Less than 30
[2023-04-02 11:37] LABS: African American GFR (CKD) >90 (>60 ml/min/1.73 sqM); Anion Gap 7 mmol/L; Blood Urea Nitrogen 11 mg/dL (7-17); Calcium 9.7 mg/dL (8.4-10.2); Carbon Dioxide 22 mmol/L (22-30); Chloride 107 mmol/L (98-107); Glucose 102 mg/dL (74-99); Non-African American GFR(CKD) >90 (>60 ml/min/1.73 sqM); Potassium 4.7 mmol/L (3.5-5.1); Sodium 136 mmol/L (137-145)
--- NOTE | 2023-04-02 17:21 | P.PN ---
Subjective Progress Note Date: 04/02/23 Principal diagnosis: Acute versus subacute ischemic stroke 67-year-old female who presents emergency Department because she was having some difficulty with speech and some left-sided weakness of both her arm and leg. Patient states she was last felt normal at 7 AM this morning. Patient denies any chest pain patient denies any difficulty breathing. Patient states any recent fever chills or cough per patient denies headache patient denies numbness that is focal. Patient does state the left side is weak. Patient denies any abdominal pain. Patient denies any vomiting or diarrhea CT of the head is reported as right frontal lobe age indeterminate injury. No evidence for intracranial hemorrhage. CT angiography of the head and neck was reported as no evidence of dissection of the cervical internal carotid artery or vertebral artery. No significant stenosis involving the left cervical internal system. Less than 50% stenosis involving the origin of the right internal carotid artery. No evidence of high- grade stenosis or intracranial aneurysm. EKG is reported as sinus rhythm. Right axis deviation. Patient had NIH stroke scale of 04 and a code stroke was activated and her symptoms completely resolved in the ED. As a result no IV TPA since her symptoms almost closely resolved. No IV TPA since her symptoms almost completely resolved as well as a CAT scan showed the an infarct which was felt a contraindication. Was felt to IV TPA risk outweigh the benefit. 04/02/2023 Neurology on board; MRI of the brain, bilateral carotid Doppler and echocardiogram is ordered and pending --Patient has been placed on aspirin 325 mg daily; neurology has added Plavix 75 mg daily; patient will resume antiplatelet therapy for now; also started on Lipitor 40 mg daily at bedtime patient is tolerating well - Bilateral carotid Doppler is completed and diffuse 50-69% stenosis. On carotid duplex; CTA showed less than 50% stenosis; vascular surgery is consulted -- PT/OT and FLOWER SHOP MANAGER consulted - Progressive hypertension for another 24 hours - Patient has been cleared to start DVT prophylaxis with subcu heparin 5000 units every 12 hours -- Above plan of care was discussed with patient and family members at bedside and they are agreeable Objective - Vital Signs Vital signs: Vital Signs Temp 97.6 F 04/02/23 09:15 Pulse 68 04/02/23 09:15 Resp 16 04/02/23 09:15 BP 137/82 04/02/23 09:15 Pulse Ox 96 04/02/23 09:15 FiO2 Intake & Output 07/08/23 07/09/23 07/09/23 18:59 06:59 18:59 Intake Total 1080 1150 Balance 1080 1150 Weight 90.1 kg 90.1 kg Intake: Oral 1080 1150 Other: Voiding Method Toilet Toilet # Voids 2 2 - Exam PHYSICAL EXAMINATION: GENERAL: The patient is alert and oriented x3, not in any acute distress. Well d eveloped, well nourished. HEENT: Pupils are round and equally reacting to light. EOMI. No scleral icterus. No conjunctival pallor. Normocephalic, atraumatic. No pharyngeal erythema. No thyromegaly. CARDIOVASCULAR: S1 and S2 present. No murmurs, rubs, or gallops. PULMONARY: Chest is clear to auscultation, no wheezing or crackles. ABDOMEN: Soft, nontender, nondistended, normoactive bowel sounds. No palpable organomegaly. MUSCULOSKELETAL: No joint swelling or deformity. EXTREMITIES: No cyanosis, clubbing, or pedal edema. NEUROLOGICAL: Gross neurological examination did not reveal any focal deficits. SKIN: No rashes. - Labs CBC & Chem 7: 04/02/23 10:42 04/02/23 10:42 Labs: Abnormal Lab Results - Last 24 Hours (Table) 04/02/23 Range/Units 10:42 Sodium 136 L (137-145) mmol/L Glucose 102 H (74-99) mg/dL Assessment and Plan Assessment: 1. Acute to subacute ischemic stroke Patient is placed on aspirin 325mg daily; Plavix 75 mg daily. For now patient to be on dual antiplatelets. I ordered MRI of the brain, 2-D echo, carotid duplex, TSH, hemoglobin A1c Every 4 hours neuro checks Cardiac monitoring PT OT and FLOWER SHOP MANAGER are consulted Recommend permissive hypertension for 24-48 hours. 2. Hypertension; patient takes Ziac6.25 mg daily along with lisinopril 10 mg daily; we will hold off on antihypertensive therapy for permissive hypertension 3. Hyperlipidemia; currently not on any statin therapy at home; patient has been placed on Lipitor 40 mg daily at bedtime 4. Hypothyroidism; patient takes levothyroxine 115 MCG daily; we will switch to IV levothyroxine till swallow evaluation is completed 5. Depression; Lexapro 5 mg daily; Wellbutrin 100 mg daily DVT prophylaxis; SCDs CODE STATUS; full code
[2023-04-02] MEDS: ATORVASTATIN 40 MG TAB PO SCH (20:19)
[2023-04-03] MEDS: ESCITALOPRAM 5 MG TAB PO SCH (09:07)
[2023-04-03] MEDS: CLOPIDOGREL 75 MG TAB PO SCH (09:07)
[2023-04-03] MEDS: HEPARIN SODIUM,PORCINE/PF 5,000 UNIT/0.5 ML SYRINGE SQ SCH ×2 (09:07→20:48)
[2023-04-03] MEDS: buPROPion 100 MG TAB PO SCH (09:07)
[2023-04-03] MEDS: ASPIRIN 325 MG TAB PO SCH (09:07)
[2023-04-03] MEDS: LEVOTHYROXINE IVP 100 MCG/5 ML VIAL IV SCH (09:08)
[2023-04-03 10:15] LABS: Chol/HDL Ratio 3.68 Ratio; LDL Cholesterol,Calculated 72.7 mg/dL (0.0-131.0)
--- NOTE | 2023-04-03 12:53 | CA ---
Transthoracic Echo Report Name: Zaynab Gale Age: 67 Gender: F : 1955 Exam Date: 04/03/2023 11:00 Exam Location: [place] Echo Ht (in): 67 Wt (lb): 198 Ordering Physician: Anurag Faustin MD Attending/Referring Phys: Appeals Rn Ale Quiros [facility] Procedure CPT: Indications: stroke. perform w bubble study Cardiac Hx: Technical Quality: Fair Contrast 1: Total Dose (mL): Contrast 2: Total Dose (mL): MEASUREMENTS (Male / Female) Normal Values 2D ECHO LV Diastolic Diameter PLAX 4.8 cm 4.2 - 5.9 / 3.9 - 5.3 cm LV Systolic Diameter PLAX 3.0 cm IVS Diastolic Thickness 0.7 cm 0.6 - 1.0 / 0.6 - 0.9 cm LVPW Diastolic Thickness 0.8 cm 0.6 - 1.0 / 0.6 - 0.9 cm LV Relative Wall Thickness 0.3 LVOT Diameter 2.0 cm Ascending Aorta Diameter 3.2 cm M-MODE Aortic Root Diameter MM 2.8 cm LA Systolic Diameter MM 3.8 cm LA Ao Ratio MM 1.4 AV Cusp Separation MM 1.9 cm DOPPLER AV Peak Velocity 137.5 cm/s AV Peak Gradient 7.6 mmHg AV Mean Velocity 95.5 cm/s AV Mean Gradient 4.1 mmHg AV Velocity Time Integral 26.4 cm LVOT Peak Velocity 113.7 cm/s LVOT Peak Gradient 5.2 mmHg LVOT Velocity Time Integral 19.2 cm LVOT Stroke Volume 59.4 cm??? LVOT Stroke Volume Index 29.5 ml/m??? LVOT Cardiac Index 1876.1 cm???/min???m??? AV Area Cont Eq vti 2.2 cm??? AV Area Cont Eq pk 2.6 cm??? Mitral E Point Velocity 54.0 cm/s Mitral A Point Velocity 96.5 cm/s Mitral E to A Ratio 0.6 MV Deceleration Time 336.6 ms LV E' Lateral Velocity 7.2 cm/s Mitral E to LV E' Lateral Ratio 7.5 LV E' Septal Velocity 5.5 cm/s Mitral E to LV E' Septal Ratio 9.9 TR Peak Velocity 240.5 cm/s TR Peak Gradient 23.1 mmHg Right Atrial Pressure 3.0 mmHg Pulmonary Artery Systolic Pressu 26.1 mmHg Right Ventricular Systolic Press 28.1 mmHg FINDINGS Left Ventricle Normal Left ventricular size, wall thickness, systolic function with no obvious regional wall motion abnormalities. Left ventricular ejection fraction is estimated at 55-60%. Right Ventricle Normal right ventricular size and function. Right Atrium Normal right atrial size. Negative agitated saline bubble study for right to left shunt. Left Atrium Normal left atrial size. Mitral Valve Structurally normal mitral valve. Mild thickening/calcification of the posterior mitral valve leaflet. No mitral regurgitation. Aortic Valve Aortic valve not well visualized. No aortic valve stenosis or regurgitation. Tricuspid Valve Structurally normal tricuspid valve. Mild tricuspid regurgitation. Pulmonic Valve Structurally normal pulmonic valve. No pulmonic regurgitation. Pericardium No pericardial effusion. Aorta Normal size aortic root and proximal ascending aorta. CONCLUSIONS Normal LV systolic function Negative agitated saline contrast study Consider transesophageal echo to definitively rule out cardiac source for thromboembolic CVA Previewed by: Dr. Prakash Zepeda MD (Electronically Signed) Final Date: 03 April 2023 12:52
--- NOTE | 2023-04-03 13:38 | P.PN ---
Subjective Progress Note Date: 04/03/23 67-year-old female who presents emergency Department because she was having some difficulty with speech and some left-sided weakness of both her arm and leg. Patient states she was last felt normal at 7 AM this morning. Patient denies any chest pain patient denies any difficulty breathing. Patient states any recent fever chills or cough per patient denies headache patient denies numbness that is focal. Patient does state the left side is weak. Patient denies any abdominal pain. Patient denies any vomiting or diarrhea CT of the head is reported as right frontal lobe age indeterminate injury. No evidence for intracranial hemorrhage. CT angiography of the head and neck was reported as no evidence of dissection of the cervical internal carotid artery or vertebral artery. No significant sten osis involving the left cervical internal system. Less than 50% stenosis involving the origin of the right internal carotid artery. No evidence of high- grade stenosis or intracranial aneurysm. EKG is reported as sinus rhythm. Right axis deviation. Patient had NIH stroke scale of 04 and a code stroke was activated and her symptoms completely resolved in the ED. As a result no IV TPA since her s ymptoms almost closely resolved. No IV TPA since her symptoms almost completely resolved as well as a CAT scan showed the an infarct which was felt a contraindication. Was felt to IV TPA risk outweigh the benefit. 04/02/2023 Neurology on board; MRI of the brain, bilateral carotid Doppler and echocardiogram is ordered and pending --Patient has been placed on aspirin 325 mg daily; neurology has added Plavix 75 mg daily; patient will resume antiplatelet therapy for now; also started on Lipitor 40 mg daily at bedtime patient is tolerating well - Bilateral carotid Doppler is completed and diffuse 50-69% stenosis. On carotid duplex; CTA showed less than 50% stenosis; vascular surgery is consulted -- PT/OT and BROADCAST FIELD SUPERVISOR consulted - Progressive hypertension for another 24 hours - Patient has been cleared to start DVT prophylaxis with subcu heparin 5000 units every 12 hours -- Above plan of care was discussed with patient and family members at bedside and they are agreeable 04/03. Patient seen and examined. Denies any slurred speech. Denies any weakness of any extremity. REVIEW OF SYSTEMS: CONSTITUTIONAL: No fever, no malaise,. CARDIOVASCULAR: No chest pain, no palpitations, no syncope. PULMONARY: No shortness of breath, no cough, GASTROINTESTINAL: No diarrhea, no nausea, no vomiting, no abdominal pain. NEUROLOGICAL: No headaches, no weakness, PHYSICAL EXAMINATION: GENERAL: The patient is alert and oriented x3, not in any acute distress. Well developed, well nourished. HEENT: Pupils are round and equally reacting to light. EOMI. No scleral icterus. No conjunctival pallor. Normocephalic, atraumatic. No pharyngeal erythema. No thyromegaly. CARDIOVASCULAR: S1 and S2 present. No murmurs, rubs, or gallops. PULMONARY: Chest is clear to auscultation, no wheezing or crackles. ABDOMEN: Soft, nontender, nondistended, normoactive bowel sounds. No palpable organomegaly. MUSCULOSKELETAL: No joint swelling or deformity. EXTREMITIES: No cyanosis, clubbing, or pedal edema. NEUROLOGICAL: Gross neurological examination did not reveal any focal deficits. SKIN: No rashes. Assessment and plan 1. Acute to subacute ischemic stroke Continue aspirin Plavix and continue Lipitor MRI brain pending Every 4 hours neuro checks Cardiac monitoring PT OT and BROADCAST FIELD SUPERVISOR are consulted Recommend permissive hypertension for 24-48 hours. 2. Hypertension; patient takes Ziac6.25 mg daily along with lisinopril 10 mg daily; we will hold off on antihypertensive therapy for permissive hypertension 3. Hyperlipidemia; currently not on any statin therapy at home; patient has been placed on Lipitor 40 mg daily at bedtime 4. Hypothyroidism; patient takes levothyroxine 115 MCG daily; 5. Depression; Lexapro 5 mg daily; Wellbutrin 100 mg daily Labs and medication were reviewed.. Continue same treatment. Continue with symptomatic treatment. Resume home medication. Monitor labs and vitals. DVT and GI prophylaxis. Further recommendations as per clinical course of the patient Objective - Vital Signs Vital signs: Vital Signs Temp 98.2 F 04/03/23 05:00 Pulse 84 04/03/23 05:00 Resp 16 04/03/23 05:00 BP 132/88 04/03/23 05:00 Pulse Ox 96 04/03/23 05:00 FiO2 Intake & Output 04/02/23 04/03/23 04/03/23 18:59 06:59 18:59 Intake Total 1268 110 Balance 1268 110 Intake: Oral 1268 110 Other: Voiding Method Toilet Toilet # Voids 2 1 # Bowel Movements 1 - Labs CBC & Chem 7: 04/02/23 10:42 04/02/23 10:42 Labs: Abnormal Lab Results - Last 24 Hours (Table) 04/02/23 Range/Units 10:42 Sodium 136 L (137-145) mmol/L Glucose 102 H (74-99) mg/dL Triglycerides 223.00 H (0.00-149.00) mg/dL VLDL Cholesterol, Calc 44.60 H (5.00-40.00) mg/dL
--- NOTE | 2023-04-03 19:40 | P.GSCN ---
History of Present Illness Consult date: 04/03/23 History of present illness: Zaynab is a 67-year-old female who was admitted to the hospital with some speech difficulty and left-sided weakness in both upper and lower extremity. She denies a chest pains or shortness of breath she has a fevers, chills, cough, nausea or vomiting. She has a history of hypertension, prostatitis, obstructive sleep apnea, IBS, skin cancer, leg swelling, previous bariatric surgery. After arrival to the ER she was resolved of her symptomatology. She underwent imaging and on admission and was found to have no obvious evidence of carotid disease on computed tomography scan, ultrasound later was performed showing 50-69% stenosis. We'll consult in regards to this. She is pending an MRI workup. Past Medical History Past Medical History: Cancer, Hypertension, Osteoarthritis (OA), Sleep Apnea/C PAP/BIPAP, Thyroid Disorder Additional Past Medical History / Comment(s): Colitis, IBS, hx. Skin Cancer, frequent left foot & ankle swelling, urinary incontinence, History of Any Multi-Drug Resistant Organisms: None Reported Past Surgical History: Bariatric Surgery, Cholecystectomy, Hernia Repair, Hysterectomy, Joint Replacement, Orthopedic Surgery, Tonsillectomy, Tubal Ligation Additional Past Surgical History / Comment(s): Partial Thyroidectomy, D&C., Hemmorroidectomy, left achilles tendon repair, right knee replacement, 06-15-16 [facility], 2019 Cataracts both eyes Past Anesthesia/Blood Transfusion Reactions: No Reported Reaction Past Psychological History: Depression Smoking Status: Former smoker Past Alcohol Use History: None Reported Additional Past Alcohol Use History / Comment(s): SMOKED FOR: 20 YRS PPD: /2 (QUIT SMOKING MARCH 28, 2016) Past Drug Use History: Marijuana Additional Drug Use History / Comment(s): marijauna gummy as a sleep aide at night - Past Family History Father Additional Family Medical History / Comment(s): Rheumatic fever causing from weak heart Mother Family Medical History: Diabetes Mellitus, Hypertension Medications and Allergies Home Medications Medication Instructions Recorded Confirmed Type Bisoprolol/Hydrochlorothiazide 1 tab PO DAILY 01/22/14 04/01/23 History [Ziac 10-6.25 MG] Aspirin [[facility]irin [facility]] 81 mg PO DAILY 04/01/23 04/01/23 History Escitalopram [Lexapro] 5 mg PO DAILY 04/01/23 04/01/23 History Levothyroxine Sodium [Synthroid] 112 mcg PO DAILY 04/01/23 04/01/23 History Multivitamins, Thera [Multivitamin 1 tab PO DAILY 04/01/23 04/01/23 History (formulary)] buPROPion [Wellbutrin] 100 mg PO DAILY 04/01/23 04/01/23 History lisinopriL [Zestril] 10 mg PO DAILY 04/01/23 04/01/23 History Allergies Allergy/AdvReac Type Severity Reaction Status Date / Time No Known Allergies Allergy Verified 04/01/23 11:49 Surgical - Exam Vital Signs Temp 98.5 F 04/01/23 11:00 Gen. is a pleasant cooperative female in no acute distress. HEENT is normal cephalic, atraumatic, excellent motion intact. Heart is regular. Lungs are clear. Abdomen is soft. Extremities no clubbing, cyanosis or edema. Cranial nerve II through XII grossly intact at this time. No obvious focal weakness Results CT angiogram is reviewed. There is no significant stenosis of bilateral internal carotid arteries. There is moderate right external carotid artery stenosis. The ultrasound is reviewed. 50-6 9% stenosis bilaterally much closer to 50% based on the velocities. - Labs 04/02/23 10:42 04/02/23 10:42 Abnormal Lab Results - Last 24 Hours (Table) 04/02/23 Range/Units 10:42 Triglycerides 223.00 H (0.00-149.00) mg/dL VLDL Cholesterol, Calc 44.60 H (5.00-40.00) mg/dL Diabetes panel 04/02/23 04/02/23 Range/Units 10:42 10:42 Hemoglobin A1c 5.7 (<=6.0) % Triglycerides 223.00 H (0.00-149.00) mg/dL HDL Cholesterol 43.70 (40.00-60.00) mg/dL Assessment and Plan Assessment: Possible TIA Minimal carotid stenosis Plan: At this point, I believe the patient would be best benefited by medical therapy, await MRI for full evaluation. She has no obvious areas of significant stenosis on CT imaging. This is all discussed with her and neurologist. We will change recommendations pending MRI otherwise plan for outpatient follow-up and carotid surveillance.
--- NOTE | 2023-04-03 20:01 | P.PN ---
Subjective Progress Note Date: 04/03/23 Patient initially seen by Dr. Anurag Faustin. Please refer to his note for details. Patient is a 67-year-old female with episode of dysarthria and left-sided weakness. Patient has ischemic changes on the right frontal region. Pending stroke workup. Patient is currently on aspirin and Plavix. She was taking aspirin 81 mg, but has stopped taking it 5 days prior to stroke, due to running out of the medication. Some of the workup during this hospital visit consisted of: Initial serum glucose is 91 and the POC glucose is 102. CT of the head is reported as right frontal lobe age indeterminate injury. No evidence for intracranial hemorrhage. I personally reviewed the CT of the head and I feel possibly it's a subacute right frontal ischemic stroke. CT angiography of the head and neck was reported as no evidence of dissection of the cervical internal carotid artery or vertebral artery. No significant stenosis involving the left cervical internal system. Less than 50% stenosis involving the origin of the right internal carotid artery. No evidence of high- grade stenosis or intracranial aneurysm. EKG is reported as sinus rhythm. Right axis deviation. Carotid duplex is reported as 50-69% stenosis bilateral carotid bifurcation by peak velocity. Objective - Vital Signs Vital signs: Vital Signs Temp 98.1 F 04/03/23 17:00 Pulse 80 04/03/23 17:00 Resp 16 04/03/23 17:00 BP 145/67 04/03/23 17:00 Pulse Ox 94 L 04/03/23 17:00 FiO2 Intake & Output 04/03/23 04/03/23 04/04/23 06:59 18:59 06:59 Intake Total 330 Balance 330 Intake: Oral 330 Other: Voiding Method Toilet # Voids 1 1 # Bowel Movements 1 - Exam Patient's mental status, speech and language functions are normal. No aphasia or dysarthria. Cranial nerve examination, pupils are equal, round and reacting, visual johnson are full, face is symmetric and tongue protrudes to the midline. On muscle strength testing there is no pronator drift and the strength is normal in arms and legs. Sensory to touch is equal with no neglect. No ataxia for [id number] testing. - Labs CBC & Chem 7: 04/02/23 10:42 04/02/23 10:42 Labs: Abnormal Lab Results - Last 24 Hours (Table) 04/02/23 Range/Units 10:42 Triglycerides 223.00 H (0.00-149.00) mg/dL VLDL Cholesterol, Calc 44.60 H (5.00-40.00) mg/dL Assessment and Plan Assessment: This is a 67-year-old woman who presented because of weakness and numbness as well as slurring of the speech initially noticed symptoms around 10:10am today. Her symptoms has resolved. In the ED her NIH stroke scale was a 4 by symptoms were almost resolving in the ED and a CAT scan showed the stroke over the right frontal. I felt it seems more subacute right frontal stroke. No IV TPA since symptoms has resolved and had a stroke on the CAT scan and it was felt the risk outweighed the benefit. Acute to Subacute ischemic stroke. On examination seems she continues to have left lower extremity numbness mostly in the foot. Discordant bilateral carotid stenosis, 50-69% on carotid duplex. While less than 50% stenosis involving the origin of right internal carotid artery on the CTA. 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 Dr. Anurag Faustin also started the patient on Plavix 75 mg daily. For now patient to be on dual antiplatelets. Pending MRI of the brain, 2-D echo revealed normal left ventricular systolic function with EF 55-60%. Negative agitated saline study. Left atrial size is normal. No indication for DUSTIN based upon echo report. Hemoglobin A1c 5.7 TSH 1.75 Lipid panel with cholesterol 161, LDL 72, HDL 43, triglycerides 223. Continue Lipitor 41 g daily. Discordant bilateral carotid stenosis, 50-69% on carotid duplex. While less than 50% stenosis involving the origin of right internal carotid artery on the CTA. Vascular surgery team on board. Recommending medical management. Cardiac monitoring PT OT and TOOL SETTER are consulted Gradually optimize control of blood pressure to normotensive level. I am not sure about this history of infarct in the renal pelvis in the past. We'll defer further investigation to the primary team. Patient needs to follow up with board filler. We'll defer the rest of the medical management to primary team For DVT prophylaxis: On subcu heparin 5000 units every 12 hours
[2023-04-03] MEDS: ATORVASTATIN 40 MG TAB PO SCH (20:48)
[2023-04-04] MEDS: LEVOTHYROXINE 112 MCG TAB PO SCH (06:59)
[2023-04-04] MEDS: buPROPion 100 MG TAB PO SCH (07:48)
[2023-04-04] MEDS: ASPIRIN 325 MG TAB PO SCH (07:48)
[2023-04-04] MEDS: HEPARIN SODIUM,PORCINE/PF 5,000 UNIT/0.5 ML SYRINGE SQ SCH ×2 (07:48→20:27)
[2023-04-04] MEDS: CLOPIDOGREL 75 MG TAB PO SCH (07:48)
[2023-04-04] MEDS: ESCITALOPRAM 5 MG TAB PO SCH (07:48)
[2023-04-04 09:24] LABS: African American GFR (CKD) >90 (>60 ml/min/1.73 sqM); Anion Gap 10 mmol/L; Blood Urea Nitrogen 9 mg/dL (7-17); Calcium 9.5 mg/dL (8.4-10.2); Carbon Dioxide 21 mmol/L (22-30); Chloride 108 mmol/L (98-107); Glucose 133 mg/dL (74-99); Non-African American GFR(CKD) 90 (>60 ml/min/1.73 sqM); Potassium 4.1 mmol/L (3.5-5.1); Sodium 139 mmol/L (137-145)
--- NOTE | 2023-04-04 11:13 | P.CRDCN ---
History of Present Illness History of present illness: HISTORY OF PRESENT ILLNESS: This is a 67 year old female with a past medical history significant for hypertension, hypothyroidism, and depression. Patient does not follow with a turning machine operator helper. We have been asked to see the patient in consultation for possible atrial fibrillation. Patient examined at the bedside. Patient states she was at home when she thought she was drooling but was unable to wipe her face. She states she tried to get out of bed and slid out of bed. She states her came over to her and noticed she had a left facial droop. She states she was talking to her but none of the words coming out were making sense to him. She denied having any chest pain or pressure. She denied having any shortness of breath. She states that her left-sided weakness resolved within about an hour of her symptoms starting. Neurology evaluated the patient and has felt that she had an acute to subacute ischemic stroke. This morning, patient had a few episodes of tachycardia noted on telemetry. This did not last long enough to obtain EKG. Upon review of telemetry tracings, patient may be having atrial fibrillation versus atrial tachycardia. * EKG reveals sinus mechanism with no signs of acute ischemia * Chest xray negative for acute process * Laboratory data: WBC 7.4. Hemoglobin 14.0. Platelet count 346. Sodium 139. Potassium 4.1. BUN 9. Creatinine 0.69. TSH 1.750. * Current home cardiac medications include lisinopril 10 mg daily and Ziac 10- 6.25mg daily * Echocardiogram completed revealing ejection fraction of 55-60%, negative clemente ble study, mild tricuspid regurgitation REVIEW OF SYSTEMS: At the time of my exam: CONSTITUTIONAL: Denies fever or chills. HEENT: Denies blurred vision, vision changes, or eye pain. Denies hemoptysis CARDIOVASCULAR: Denies chest pain. Denies orthopnea. Denies PND. Denies palpitations RESPIRATORY: Denies shortness of breath. GASTROINTESTINAL: Denies abdominal pain. Denies nausea or vomiting. HEMATOLOGIC: Denies bleeding disorders. GENITOURINARY: Denies any blood in urine. SKIN: Denies pruitis. Denies rash. PHYSICAL EXAM: VITAL SIGNS: Reviewed. GENERAL: Well-developed in no acute distress. HEENT: Head is normocephalic. Pupils are equal, round. Sclerae anicteric. Mucous membranes of the mouth are moist. Neck supple. No JVD or thyromegaly LUNGS: Respirations even and unlabored. Lungs essentially clear to auscultation bilaterally. HEART: Regular rate and rhythm. S1 and S2 heard. ABDOMEN: Soft. Nondistended. Nontender. EXTREMITIES: Normal range of motion. No clubbing or cyanosis. Peripheral pulses intact. No lower extremity edema NEUROLOGIC: Awake and alert. Oriented x 3. ASSESSMENT: Left sided weakness, possible acute to subacute ischemic CVA Possible atrial fibrillation versus atrial tachycardia Hypertension Hypothyroidism Depression PLAN: 2D echo obtained and reviewed Continue Lipitor Telemetry reveals possible afib with atrial tachycardia. However, given CVA recommend anticoagulation with Eliquis or Xarelto. Will discuss with neurology. If okay to begin from their standpoint, will DC aspirin and plavix Patient to follow up with Dr. Taveras in one week Patient will receive event monitor at her follow up appointment with Dr. Taveras Nurse practitioner note has been reviewed by physician. Signing provider agrees with the documented findings, assessment, and plan of care. Past Medical History Past Medical History: Cancer, Hypertension, Osteoarthritis (OA), Sleep Apnea/CPAP/BIPAP, Thyroid Disorder Additional Past Medical History / Comment(s): Colitis, IBS, hx. Skin Cancer, frequent left foot & ankle swelling, urinary incontinence, History of Any Multi-Drug Resistant Organisms: None Reported Past Surgical History: Bariatric Surgery, Cholecystectomy, Hernia Repair, Hysterectomy, Joint Replacement, Orthopedic Surgery, Tonsillectomy, Tubal Ligation Additional Past Surgical History / Comment(s): Partial Thyroidectomy, D&C., Hemmorroidectomy, left achilles tendon repair, right knee replacement, 06-15-16 [facility], 2019 Cataracts both eyes Past Anesthesia/Blood Transfusion Reactions: No Reported Reaction Past Psychological History: Depression Smoking Status: Former smoker Past Alcohol Use History: None Reported Additional Past Alcohol Use History / Comment(s): SMOKED FOR: 20 YRS PPD: /2 (QUIT SMOKING MARCH 28, 2016) Past Drug Use History: Marijuana Additional Drug Use History / Comment(s): marijauna gummy as a sleep aide at night - Past Family History Father Additional Family Medical History / Comment(s): Rheumatic fever causing from weak heart Mother Family Medical History: Diabetes Mellitus, Hypertension Medications and Allergies Home Medications Medication Instructions Recorded Confirmed Type Bisoprolol/Hydrochlorothiazide 1 tab PO DAILY 01/22/14 04/01/23 History [Ziac 10-6.25 MG] Aspirin [Bell Aspirin EC] 81 mg PO DAILY 04/01/23 04/01/23 History Escitalopram [Lexapro] 5 mg PO DAILY 04/01/23 04/01/23 History Levothyroxine Sodium [Synthroid] 112 mcg PO DAILY 04/01/23 04/01/23 History Multivitamins, Thera [Multivitamin 1 tab PO DAILY 04/01/23 04/01/23 History (formulary)] buPROPion [Wellbutrin] 100 mg PO DAILY 04/01/23 04/01/23 History lisinopriL [Zestril] 10 mg PO DAILY 04/01/23 04/01/23 History Allergies Allergy/AdvReac Type Severity Reaction Status Date / Time No Known Allergies Allergy Verified 04/01/23 11:49 Physical Exam Vitals: Vital Signs Temp Pulse Resp BP Pulse Ox 04/04/23 05:00 98.0 F 73 16 155/70 96 04/04/23 02:00 16 04/04/23 00:05 150 H 04/04/23 00:00 70 16 139/71 97 04/03/23 20:00 98.1 F 84 16 144/69 98 04/03/23 17:00 98.1 F 80 16 145/67 94 L 04/03/23 14:00 16 04/03/23 11:40 97.7 F 70 18 138/84 95 04/03/23 11:21 96 04/03/23 09:00 97.6 F 75 18 136/65 96 Intake and Output 04/03/23 04/04/23 04/04/23 22:59 06:59 14:59 Intake Total 110 Balance 110 Intake: Oral 110 Other: Voiding Method Toilet Toilet # Voids 1 2 Results 04/02/23 10:42 04/04/23 08:57 Lipids 04/02/23 Range/Units 10:42 Triglycerides 223.00 H (0.00-149.00) mg/dL Cholesterol 161.00 (0.00-200.00) mg/dL HDL Cholesterol 43.70 (40.00-60.00) mg/dL Cholesterol/HDL Ratio 3.68 Ratio Current Medications Generic Name Dose Route Start Last Admin Trade Name Freq PRN Reason Stop Dose Admin Aspirin 325 mg 04/02/23 09:00 04/04/23 07:48 Aspirin 325 Mg Tab PO 325 mg DAILY AMINA Administration Atorvastatin Calcium 40 mg 04/01/23 21:00 04/03/23 20:48 Atorvastatin 40 Mg Tab PO 40 mg HS AMINA Administration Bupropion HCl 100 mg 04/02/23 09:00 04/04/23 07:48 Bupropion 100 Mg Tab PO 100 mg DAILY AMINA Administration Clopidogrel Bisulfate 75 mg 04/01/23 16:15 04/04/23 07:48 Clopidogrel 75 Mg Tab PO 75 mg DAILY AMINA Administration Escitalopram Oxalate 5 mg 04/02/23 09:00 04/04/23 07:48 Escitalopram 5 Mg Tab PO 5 mg DAILY AMINA Administration Heparin Sodium (Porcine) 5,000 unit 04/01/23 21:00 04/04/23 07:48 Heparin Sodium,Porcine/Pf 5,000 Unit/0.5 Ml Syringe SQ 5,000 unit Q12HR AMINA Administration Levothyroxine Sodium 112 mcg 04/04/23 06:30 04/04/23 06:59 Levothyroxine 112 Mcg Tab PO 112 mcg DAILY@0630 AMINA Administration Miscellaneous Information 1 each 04/01/23 11:03 Alteplase Per Pharmacy Stroke 1 Each Misc MISCELLANE DIRECTED PRN Stroke Intake and Output 04/03/23 04/04/23 04/04/23 22:59 06:59 14:59 Intake Total 110 Balance 110 Intake: Oral 110 Other: Voiding Method Toilet Toilet # Voids 1 2 04/02/23 10:42 04/02/23 10:42
--- NOTE | 2023-04-04 12:32 | P.PN ---
Subjective Progress Note Date: 04/04/23 Patient seen and examined. No complaints or concerns. No further neurologic symptoms. Awaiting MRI Objective - Vital Signs Vital signs: Vital Signs Temp 96.8 F L 04/04/23 12:00 Pulse 80 04/04/23 12:00 Resp 18 04/04/23 12:28 BP 143/79 04/04/23 12:00 Pulse Ox 96 04/04/23 12:00 FiO2 Intake & Output 04/03/23 04/04/23 04/04/23 18:59 06:59 18:59 Intake Total 330 118 Balance 330 118 Intake: Oral 330 118 Other: Voiding Method Toilet Toilet # Voids 1 2 - Exam No acute distress resting comfortably. HEENT is normal cephalic and atraumatic. Heart appears regular rhythm lungs are clear. Abdomen is soft. Cranial nerves II through XII grossly intact - Labs CBC & Chem 7: 04/02/23 10:42 04/04/23 08:57 Labs: Abnormal Lab Results - Last 24 Hours (Table) 04/04/23 Range/Units 08:57 Chloride 108 H (98-107) mmol/L Carbon Dioxide 21 L (22-30) mmol/L Glucose 133 H (74-99) mg/dL Assessment and Plan Assessment: Possible TIA Minimal carotid stenosis Plan: await MRI for full evaluation. She has no obvious areas of significant stenosis on CT imaging. Continue medical management at this time with outpatient follow-up for carotid surveillance.
--- NOTE | 2023-04-04 13:49 | MR ---
EXAMINATION TYPE: MR brain wo/w con DATE OF EXAM: 04/04/2023 12:59 PM CLINICAL INDICATION:Female, 67 years old with history of stroke. left sided weakness, dysarthria; Le ft sided weakness, dysarthria. COMPARISON: 04/01/2023 TECHNIQUE: Multi planar, multi sequence imaging was performed through the brain including: T1, T2, In version recovery, susceptibility weighted imaging and gradient echo imaging and Diffusion weighted im aging. The patient was then given intravenous contrast and multi planar, T1 fat-saturation images wer e obtained. IV Contrast: 9 cc Gadavist FINDINGS: Area of restricted diffusion within the right insular cortex as well as the right frontal lobe office agent iorly and inferiorly the focus superiorly series 303 image 24. The ledesma-white junctions, ventricular system, basal cisterns appear unremarkable. Intracranial arteri al flow voids are maintained. Midline structures show no abnormality. Scattered foci of high T2 signa l intensity are seen within the periventricular white matter. The susceptibility weighted images demo nstrate a focus of blooming artifact within the left cerebellar hemisphere. Blooming artifact also wi thin the left frontal lobe most compatible with developmental venous anomaly. After administration of gadolinium, no abnormal enhancement is seen. The bone marrow signal is within normal limits. Paranasal sinuses and mastoid air cells: Mild scattered paranasal sinus disease. Visualized orbits: Bilaterally aphakia. IMPRESSION: 1. Acute/subacute CVA involving the right insular cortex and scattered areas within the right frontal lobe. No abnormal postcontrast enhancement. 2. Nonspecific white matter changes, likely related to small vessel ischemic disease 3. Left frontal lobe developmental venous anomaly.
--- NOTE | 2023-04-04 14:04 | P.PN ---
Subjective Progress Note Date: 04/04/23 67-year-old female who presents emergency Department because she was having some difficulty with speech and some left-sided weakness of both her arm and leg. Patient states she was last felt normal at 7 AM this morning. Patient denies any chest pain patient denies any difficulty breathing. Patient states any recent fever chills or cough per patient denies headache patient denies numbness that is focal. Patient does state the left side is weak. Patient denies any abdominal pain. Patient denies any vomiting or diarrhea CT of the head is reported as right frontal lobe age indeterminate injury. No evidence for intracranial hemorrhage. CT angiography of the head and neck was reported as no evidence of dissection of the cervical internal carotid artery or vertebral artery. No significant sten osis involving the left cervical internal system. Less than 50% stenosis involving the origin of the right internal carotid artery. No evidence of high- grade stenosis or intracranial aneurysm. EKG is reported as sinus rhythm. Right axis deviation. Patient had NIH stroke scale of 04 and a code stroke was activated and her symptoms completely resolved in the ED. As a result no IV TPA since her s ymptoms almost closely resolved. No IV TPA since her symptoms almost completely resolved as well as a CAT scan showed the an infarct which was felt a contraindication. Was felt to IV TPA risk outweigh the benefit. 04/02/2023 Neurology on board; MRI of the brain, bilateral carotid Doppler and echocardiogram is ordered and pending --Patient has been placed on aspirin 325 mg daily; neurology has added Plavix 75 mg daily; patient will resume antiplatelet therapy for now; also started on Lipitor 40 mg daily at bedtime patient is tolerating well - Bilateral carotid Doppler is completed and diffuse 50-69% stenosis. On carotid duplex; CTA showed less than 50% stenosis; vascular surgery is consulted -- PT/OT and BRAND MANAGER consulted - Progressive hypertension for another 24 hours - Patient has been cleared to start DVT prophylaxis with subcu heparin 5000 units every 12 hours -- Above plan of care was discussed with patient and family members at bedside and they are agreeable 04/03. Patient seen and examined. Denies any slurred speech. Denies any weakness of any extremity. 04/04. Patient seen and examined. MRI still pending. Denies any further episodes of any slurred speech or weakness of any extremity REVIEW OF SYSTEMS: CONSTITUTIONAL: No fever, no malaise,. CARDIOVASCULAR: No chest pain, no palpitations, no syncope. PULMONARY: No shortness of breath, no cough, GASTROINTESTINAL: No diarrhea, no nausea, no vomiting, no abdominal pain. NEUROLOGICAL: No headaches, no weakness, PHYSICAL EXAMINATION: GENERAL: The patient is alert and oriented x3, not in any acute distress. Well developed, well nourished. HEENT: Pupils are round and equally reacting to light. EOMI. No scleral icterus. No conjunctival pallor. Normocephalic, atraumatic. No pharyngeal erythema. No thyromegaly. CARDIOVASCULAR: S1 and S2 present. No murmurs, rubs, or gallops. PULMONARY: Chest is clear to auscultation, no wheezing or crackles. ABDOMEN: Soft, nontender, nondistended, normoactive bowel sounds. No palpable organomegaly. MUSCULOSKELETAL: No joint swelling or deformity. EXTREMITIES: No cyanosis, clubbing, or pedal edema. NEUROLOGICAL: Gross neurological examination did not reveal any focal deficits. SKIN: No rashes. Assessment and plan 1. Acute to subacute ischemic stroke Paroxysmal atrial fibrillation Monitor vital signs Monitor CBC Telemetry monitoring MRI brain pending Currently on aspirin Plavix, cardiology recommended starting Eliquis if okay with neurology and discontinuing aspirin Plavix because of the tele findings of A. fib Every 4 hours neuro checks Cardiac monitoring PT OT and BRAND MANAGER are consulted 2. Hypertension; patient takes Ziac6.25 mg daily along with lisinopril 10 mg daily; we will hold off on antihypertensive therapy for permissive hypertension 3. Hyperlipidemia; currently not on any statin therapy at home; patient has been placed on Lipitor 40 mg daily at bedtime 4. Hypothyroidism; patient takes levothyroxine 115 MCG daily; 5. Depression; Lexapro 5 mg daily; Wellbutrin 100 mg daily Labs and medication were reviewed.. Continue same treatment. Continue with symptomatic treatment. Resume home medication. Monitor labs and vitals. DVT and GI prophylaxis. Further recommendations as per clinical course of the patient Objective - Vital Signs Vital signs: Vital Signs Temp 96.5 F L 04/04/23 08:00 Pulse 79 04/04/23 08:00 Resp 18 04/04/23 08:00 BP 178/76 04/04/23 08:00 Pulse Ox 93 L 04/04/23 08:00 FiO2 Intake & Output 04/03/23 04/04/2304/04/23 18:59 06:59 18:59 Intake Total 330 118 Balance 330 118 Intake: Oral 330 118 Other: Voiding Method Toilet Toilet # Voids 1 2 - Labs CBC & Chem 7: 04/02/23 10:42 04/04/23 08:57 Labs: Abnormal Lab Results - Last 24 Hours (Table) 04/04/23 Range/Units 08:57 Chloride 108 H (98-107) mmol/L Carbon Dioxide 21 L (22-30) mmol/L Glucose 133 H (74-99) mg/dL
[2023-04-04] MEDS: BISOPROLOL-HCTZ 10-6.25 MG 1 EACH TAB PO SCH (16:04)
--- NOTE | 2023-04-04 17:25 | P.PN ---
Subjective Progress Note Date: 04/04/23 04/04/2023: Patient was seen for a follow-up. Patient is sitting comfortably in the bed. Offers no complaints. She feels back to baseline. 04/03/2023: Patient initially seen by Dr. Anurag Faustin. Please refer to his note for details. Patient is a 67-year-old female with episode of dysarthria and left-sided weakness. Patient has ischemic changes on the right frontal region. Pending stroke workup. Patient is currently on aspirin and Plavix. She was taking aspirin 81 mg, but has stopped taking it 5 days prior to stroke, due to running out of the medication. Some of the workup during this hospital visit consisted of: Initial serum glucose is 91 and the POC glucose is 102. CT of the head is reported as right frontal lobe age indeterminate injury. No evidence for intracranial hemorrhage. I personally reviewed the CT of the head and I feel possibly it's a subacute right frontal ischemic stroke. CT angiography of the head and neck was reported as no evidence of dissection of the cervical internal carotid artery or vertebral artery. No significant stenosis involving the left cervical internal system. Less than 50% stenosis involving the origin of the right internal carotid artery. No evidence of high- grade stenosis or intracranial aneurysm. EKG is reported as sinus rhythm. Right axis deviation. Carotid duplex is reported as 50-69% stenosis bilateral carotid bifurcation by peak velocity. Objective - Vital Signs Vital signs: Vital Signs Temp 98.0 F 04/04/23 16:00 Pulse 77 04/04/23 16:00 Resp 18 04/04/23 16:00 BP 145/77 04/04/23 16:00 Pulse Ox 95 04/04/23 16:00 FiO2 Intake & Output 04/03/23 04/04/23 04/04/23 18:59 06:59 18:59 Intake Total 330 236 Balance 330 236 Intake: Oral 330 236 Other: Voiding Method Toilet Toilet # Voids 1 2 - Exam Patient's mental status, speech and language functions are normal. No aphasia or dysarthria. Cranial nerve examination, pupils are equal, round and reacting, visual johnson are full, face is symmetric and tongue protrudes to the midline. On muscle strength testing there is no pronator drift and the strength is normal in arms and legs. Sensory to touch is equal with no neglect. No ataxia for [id number] testing. - Labs CBC & Chem 7: 04/02/23 10:42 04/04/23 08:57 Labs: Abnormal Lab Results - Last 24 Hours (Table) 04/04/23 Range/Units 08:57 Chloride 108 H (98-107) mmol/L Carbon Dioxide 21 L (22-30) mmol/L Glucose 133 H (74-99) mg/dL Assessment and Plan Assessment: This is a 67-year-old woman who presented because of weakness and numbness as well as slurring of the speech initially noticed symptoms around 10:10am today. Her symptoms has resolved. In the ED her NIH stroke scale was a 4 by symptoms were almost resolving in the ED and a CAT scan showed the stroke over the right frontal. I felt it seems more subacute right frontal stroke. No IV TPA since symptoms has resolved and had a stroke on the CAT scan and it was felt the risk outweighed the benefit. Acute ischemic stroke. All symptoms resolved. Current NIH stroke scale is 0. Discordant bilateral carotid stenosis, 50-69% on carotid duplex. While less than 50% stenosis involving the origin of right internal carotid artery on the CTA. 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 Dr. Anurag Faustin also started the patient on Plavix 75 mg daily. Per cardiology report they found patient has possible atrial fibrillation versus atrial tachycardia. They are recommending patient to be started on Eliquis 5 mg twice a day. In that case, no need to take dual antiplatelet medications. Agree. MRI of the brain acute/subacute CVA involving the right insular cortex and scattered areas within the right frontal lobe. Event appears embolic in nature. No abnormal postcontrast enhancement. Nonspecific white matter changes, likely related to small vessel ischemic disease. Left frontal lobe developmental venous anomaly. I personally reviewed MRI, agree with the findings. 2-D echo revealed normal left ventricular systolic function with EF 55-60%. Negative agitated saline study. Left atrial size is normal. No indication for DUSTIN based upon echo report. Hemoglobin A1c 5.7 TSH 1.75 Lipid panel with cholesterol 161, LDL 72, HDL 43, triglycerides 223. Continue Lipitor 41 g daily. Discordant bilateral carotid stenosis, 50-69% on carotid duplex. While less than 50% stenosis involving the origin of right internal carotid artery on the CTA. Vascular surgery team on board. Recommending medical management. Cardiac monitoring PT OT and BOARD FILLER are consulted Gradually optimize control of blood pressure to normotensive level. I am not sure about this history of infarct in the renal pelvis in the past. We'll defer further investigation to the primary team. Patient needs to follow up with commissioning editor. We'll defer the rest of the medical management to primary team For DVT prophylaxis: On subcu heparin 5000 units every 12 hours Neurologically clear for discharge with the above recommendations.
[2023-04-04] MEDS: ATORVASTATIN 40 MG TAB PO SCH (20:27)
[2023-04-05] MEDS: LEVOTHYROXINE 112 MCG TAB PO SCH (05:54)
[2023-04-05] MEDS ORDERED: lisinopriL 10 MG TAB PO SCH (09:00)
[2023-04-05] MEDS ORDERED: APIXABAN 5 MG TAB PO SCH (09:00)
[2023-04-05 09:21] VITALS: BP 133/79; PULSE 67; RESP 18; TEMP 97.9
[2023-04-05] MEDS: buPROPion 100 MG TAB PO SCH (09:22)
[2023-04-05] MEDS: BISOPROLOL-HCTZ 10-6.25 MG 1 EACH TAB PO SCH (09:22)
[2023-04-05] MEDS: ESCITALOPRAM 5 MG TAB PO SCH (09:22)
--- NOTE | 2023-04-05 12:10 | P.DS ---
Providers Date of admission: 04/01/23 14:19 Expected date of discharge: 04/05/23 Attending physician: She Sweeney Consults: 04/01/23 14:19 Consult Physician Urgent Consulting Provider: Anurag Faustin Consult Reason/Comments: CVA Do you want consulting provider notified?: Yes 04/04/23 06:09 Consult Physician Routine Consulting Provider: Prakash Zepeda Consult Reason/Comments: afib rvr/svt on telemetry <1 min x2 Do you want consulting provider notified?: Yes, Notify in am Primary care physician: Bryanna Gutierrez [facility] Course: Discharge diagnoses; 1. Acute to subacute ischemic stroke Paroxysmal atrial fibrillation MRI done showed acute/subacute CVA involving the right insular cortex and scattered areas in the right frontal lobe Started on Eliquis because of EKG findings of atrial fibrillation Outpatient follow-up with cardiology 2. Hypertension; patient takes Ziac6.25 mg daily along with lisinopril 10 mg daily 3. Hyperlipidemia; currently not on any statin therapy at home; patient has been placed on Lipitor 40 mg daily at bedtime 4. Hypothyroidism; patient takes levothyroxine 115 MCG daily; 5. Depression; Lexapro 5 mg daily; Wellbutrin 100 mg daily Hospital [id number] female who presents emergency Department because she was having some difficulty with speech and some left-sided weakness of both her arm and leg. Patient states she was last felt normal at 7 AM this morning. Patient denies any chest pain patient denies any difficulty breathing. Patient states any recent fever chills or cough per patient denies headache patient denies numbness that is focal. Patient does state the left side is weak. Patient denies any abdominal pain. Patient denies any vomiting or diarrhea CT of the head is reported as right frontal lobe age indeterminate injury. No evidence for intracranial hemorrhage. CT angiography of the head and neck was reported as no evidence of dissection of the cervical internal carotid artery or vertebral artery. No significant stenosis involving the left cervical internal system. Less than 50% stenosis involving the origin of the right internal carotid artery. No evidence of high- grade stenosis or intracranial aneurysm. EKG is reported as sinus rhythm. Right axis deviation. Patient had NIH stroke scale of 04 and a code stroke was activated and her symptoms completely resolved in the ED. As a result no IV TPA since her symptoms almost closely resolved. No IV TPA since her symptoms almost completely resolved as well as a CAT scan showed the an infarct which was felt a contraindication. Was felt to IV TPA risk outweigh the benefit. 04/02/2023 Neurology on board; MRI of the brain, bilateral carotid Doppler and echocardiogram is ordered and pending --Patient has been placed on aspirin 325 mg daily; neurology has added Plavix 75 mg daily; patient will resume antiplatelet therapy for now; also started on Lipitor 40 mg daily at bedtime patient is tolerating well - Bilateral carotid Doppler is completed and diffuse 50-69% stenosis. On carotid duplex; CTA showed less than 50% stenosis; vascular surgery is consulted -- PT/OT and TUB PULLER consulted - Progressive hypertension for another 24 hours - Patient has been cleared to start DVT prophylaxis with subcu heparin 5000 units every 12 hours -- Above plan of care was discussed with patient and family members at bedside and they are agreeable 04/03. Patient seen and examined. Denies any slurred speech. Denies any weakness of any extremity. 04/04. Patient seen and examined. MRI still pending. Denies any further episodes of any slurred speech or weakness of any extremity 04/05. Patient seen and examined. MRI done showed acute/subacute CVA involving the right insular cortex and scattered areas in the right frontal lobe . Patient started on Eliquis by neurology, aspirin and Plavix discontinued. Being discharged in stable condition GENERAL: The patient is alert and oriented x3, not in any acute distress. Well developed, well nourished. HEENT: Pupils are round and equally reacting to light. EOMI. No scleral icterus. No conjunctival pallor. Normocephalic, atraumatic. No pharyngeal erythema. No thyromegaly. CARDIOVASCULAR: S1 and S2 present. No murmurs, rubs, or gallops. PULMONARY: Chest is clear to auscultation, no wheezing or crackles. ABDOMEN: Soft, nontender, nondistended, normoactive bowel sounds. No palpable organomegaly. MUSCULOSKELETAL: No joint swelling or deformity. EXTREMITIES: No cyanosis, clubbing, or pedal edema. NEUROLOGICAL: Gross neurological examination did not reveal any focal deficits. SKIN: No rashes. Plan - Discharge Summary Discharge Rx Participant: No New Discharge Prescriptions: New Apixaban [Eliquis] 5 mg PO BID #60 tab Atorvastatin [Lipitor] 40 mg PO HS #30 tab Continue Bisoprolol/Hydrochlorothiazide [Ziac 10-6.25 MG] 1 tab PO DAILY Multivitamins, Thera [Multivitamin (formulary)] 1 tab PO DAILY Levothyroxine Sodium [Synthroid] 112 mcg PO DAILY Escitalopram [Lexapro] 5 mg PO DAILY buPROPion [Wellbutrin] 100 mg PO DAILY lisinopriL [Zestril] 10 mg PO DAILY Discontinued Aspirin [Yates Aspirin EC] 81 mg PO DAILY Discharge Medication List Bisoprolol/Hydrochlorothiazide [Ziac 10-6.25 MG] 1 tab PO DAILY 01/22/14 [History] Escitalopram [Lexapro] 5 mg PO DAILY 04/01/23 [History] Levothyroxine Sodium [Synthroid] 112 mcg PO DAILY 04/01/23 [History] Multivitamins, Thera [Multivitamin (formulary)] 1 tab PO DAILY 04/01/23 [History] buPROPion [Wellbutrin] 100 mg PO DAILY 04/01/23 [History] lisinopriL [Zestril] 10 mg PO DAILY 04/01/23 [History] Apixaban [Eliquis] 5 mg PO BID #60 tab 04/05/23 [Rx] Atorvastatin [Lipitor] 40 mg PO HS #30 tab 04/05/23 [Rx] Follow up Appointment(s)/Referral(s): Amber Taveras MD [STAFF PHYSICIAN] - 1 Week (THE OFFICE WILL CALL YOU WITH AN APPOINTMENT DATE AND TIME) Bryanna Gutierrez MD [Primary Care Provider] - 1-2 days Patient Instructions/Handouts: A-fib (Atrial Fibrillation) (ED), Holter Monitor (GEN) Discharge Disposition: HOME SELF-CARE
--- NOTE | 2023-04-05 14:17 | P.PN ---
Subjective HISTORY OF PRESENT ILLNESS: This is a 67 year old female with a past medical history significant for hypertension, hypothyroidism, and depression. Patient does not follow with a turkey egg gatherer. We have been asked to see the patient in consultation for possible atrial fibrillation. Patient examined at the bedside. Patient states she was at home when she thought she was drooling but was unable to wipe her face. She states she tried to get out of bed and slid out of bed. She states her came over to her and noticed she had a left facial droop. She states she was talking to her but none of the words coming out were making sense to him. She denied having any chest pain or pressure. She denied having any sh ortness of breath. She states that her left-sided weakness resolved within about an hour of her symptoms starting. Neurology evaluated the patient and has felt that she had an acute to subacute ischemic stroke. This morning, patient had a few episodes of tachycardia noted on telemetry. This did not last long enough to obtain EKG. Upon review of telemetry tracings, patient may be having atrial fibrillation versus atrial tachycardia. * EKG reveals sinus mechanism with no signs of acute ischemia * Chest xray negative for acute process * Laboratory data: WBC 7.4. Hemoglobin 14.0. Platelet count 346. Sodium 139. Potassium 4.1. BUN 9. Creatinine 0.69. TSH 1.750. * Current home cardiac medications include lisinopril 10 mg daily and Ziac 10- 6.25mg daily * Echocardiogram completed revealing ejection fraction of 55-60%, negative bubble study, mild tricuspid regurgitation 04/05/2023 Patient examined this morning at the bedside. Patient denies chest pain or pressure. She denies shortness of breath. Vital signs are stable. Patient states she has been ambulating without difficulty. Case discussed with neurology who is agreeable to beginning oral anticoagulation and discontinuing aspirin and Plavix. PHYSICAL EXAM: VITAL SIGNS: Reviewed. GENERAL: Well-developed in no acute distress. HEENT: Head is normocephalic. Pupils are equal, round. Sclerae anicteric. Mucous membranes of the mouth are moist. Neck supple. No JVD or thyromegaly LUNGS: Respirations even and unlabored. Lungs essentially clear to auscultation bilaterally. HEART: Regular rate and rhythm. S1 and S2 heard. ABDOMEN: Soft. Nondistended. Nontender. EXTREMITIES: Normal range of motion. No clubbing or cyanosis. Peripheral pulses intact. No lower extremity edema NEUROLOGIC: Awake and alert. Oriented x 3. ASSESSMENT: Left sided weakness, possible acute to subacute ischemic CVA Possible atrial fibrillation versus atrial tachycardia Hypertension Hypothyroidism Depression PLAN: Discontinue aspirin and Plavix Begin oral anticoagulation with Eliquis Patient is stable for discharge home today from a cardiac standpoint Patient will receive event monitor at her follow up appointment with Dr. Taveras Nurse practitioner note has been reviewed by physician. Signing provider agrees with the documented findings, assessment, and plan of care. Objective - Vital Signs Vital signs: Vital Signs Temp 97.9 F 04/05/23 08:00 Pulse 67 04/05/23 08:00 Resp 18 04/05/23 08:00 BP 133/79 04/05/23 08:00 Pulse Ox 97 04/05/23 08:00 FiO2 Intake & Output 04/04/23 04/05/23 04/05/23 18:59 06:59 18:59 Intake Total 354 20 128 Balance 354 20 128 Intake: IV 20 10 Invasive Line 1 20 10 Oral 354 118 Other: Voiding Method Toilet Toilet # Voids 1 - Labs CBC & Chem 7: 04/02/23 10:42 04/04/23 08:57
== END 2023-04-05 12:58 | disposition home or self-care (01) | DRG 65 ==
LOC: EC 11:00 → 3SCARD 14:19
PROVIDERS: ADMIT Hospitalist; ATTEND Hospitalist
DX: I63.89 Other cerebral infarction (principal); G81.94 Hemiplegia, unspecified affecting left nondominant side; E78.5 Hyperlipidemia, unspecified; I48.0 Paroxysmal atrial fibrillation; I10 Essential (primary) hypertension; R29.704 NIHSS score 4; R47.1 Dysarthria and anarthria; E89.0 Postprocedural hypothyroidism; I65.23 Occlusion and stenosis of bilateral carotid arteries; K58.9 Irritable bowel syndrome, unspecified; R32 Unspecified urinary incontinence; F32.A Depression, unspecified; M19.90 Unspecified osteoarthritis, unspecified site; G47.33 Obstructive sleep apnea (adult) (pediatric); Z79.82 Long term (current) use of aspirin; Z79.890 Hormone replacement therapy; Z79.899 Other long term (current) drug therapy; Z87.891 Personal history of nicotine dependence; Z85.828 Personal history of other malignant neoplasm of skin; Z96.651 Presence of right artificial knee joint; Z98.84 Bariatric surgery status
CPT/HCPCS: 36415; 70450; 70496; 70498; 70553; 71046; 80048; 80053; 80061; 82550; 83036; 83735; 84443; 84484; 85025; 85610; 85730; 93005; 93306; 93880; 94760; 99291

== ENCOUNTER → 2023-04-10 | Outpatient (CLI) | payer MEDICARE ==
--- NOTE | 2023-04-10 10:24 | MM ---
Reason for Exam: Additional evaluation requested from abnormal screening. Last screening mammogram was performed less than 1 month ago. Patient History: Menarche at age 10. First Full-Term at age 19. Left ovary removed at age 62. Right ovary removed at age 62. Hysterectomy at age 62. Postmenopausal. Risk Values: Karen 5 year model risk: 1.7%. NCI Lifetime model risk: 5.5%. Prior Study Comparison: 07/30/2015 Bilateral Screening Mammogram, [facility]. 08/11/2015 Right Diagnostic Mammogram, [facility]. 04/16/2018 Bilateral Screening Mammogram, [facility]. 03/30/2023 Bilateral MG 3D screening mammo w/cad, [facility]. Tissue Density: Right: There are scattered fibroglandular densities. Findings: Analyzed By CAD. Right breast grouped calcifications at posterior depth 6.8 cm from the nipple posterior nipple line. Overall Assessment: Suspicious, BI-RAD 4 Management: Stereotactic Core Biopsy of the right breast. Results were given to the patient verbally at the time of exam. Patient should continue monthly self-breast exams. A clinical breast exam by your physician is recommended on an annual basis. This exam should not preclude additional follow-up of suspicious palpable abnormalities. Note on Karen scores and lifetime risk: 1. A Karen score greater than 3% is considered moderate risk. If this is the case, consider specialist referral to assess eligibility for a risk reducing agent. 2. If overall lifetime risk for the development of breast cancer is 20% or higher, the patient may qualify for future screening with alternating mammogram and breast MRI. Electronically signed and approved by: Tavo Zendejas DO
== END | disposition home or self-care (01) ==
LOC: RADMAMWWP 09:51
PROVIDERS: ATTEND Internal Medicine
DX: R92.8 Other abnormal and inconclusive findings on diagnostic imaging of breast (principal); Z78.0 Asymptomatic menopausal state; Z90.721 Acquired absence of ovaries, unilateral
CPT/HCPCS: 77065; G0279; 77061

== ENCOUNTER → 2023-05-04 | Day surgery (SDC) | payer MEDICARE ==
--- NOTE | 2023-05-10 09:52 | MM ---
Risk Values: Karen 5 year model risk: 1.7%. NCI Lifetime model risk: 5.5%. Prior Study Comparison: 04/16/2018 Bilateral Screening Mammogram, [facility]. 03/30/2023 Bilateral MG 3D screening mammo w/cad, [facility]. 04/10/2023 Right MG 3D work up w/cad RT, [facility]. Pathology Description: Approach: CC FA Needle Type: Eviva Cores: 7 Skin Nicks: 1 Gauge: 9 no problems The procedure of stereotactic guided core biopsy was explained to the patient. Benefits, alternatives, and risks were discussed. An informed consent was then obtained. The shortness pathway for biopsy was chosen. Shortness pathway was superior approach. A vacuum assisted biopsy gun was used to obtain multiple core samples. The patient tolerated the procedure well without any immediate complication. The patient was kept in the radiology department for short stay after the procedure and then discharged home in stable condition. Targeted calcifications are identified in specimen mammogram. Post biopsy mammogram shows the clip to appear in satisfactory position relative to the targeted area of concern on the preprocedure images. Impression: SUCCESSFUL, UNCOMPLICATED STEREOTACTIC GUIDED CORE BIOPSY OF AREA OF CONCERN IN THE RIGHT BREAST. Pathology Results: Result: Benign, Fibrocystic change. RIGHT BREAST, CORE BIOPSY: Proliferative fibrocystic change with columnar cell change, focal microcalcification, fibroadenomatoid hyperplasia, sclerosing adenosis, and rare fat necrosis. Current specimen negative for diagnostic in situ or invasive carcinoma. Overall Assessment: Benign Management: Diagnostic Mammogram of the right breast in 6 months. Electronically signed and approved by: Luis Arana D.O.
== END ==
LOC: RADMAMWWP 09:44
PROVIDERS: ATTEND Internal Medicine
DX: N60.21 Fibroadenosis of right breast (principal)
CPT/HCPCS: 88305; 19081; A4648

== ENCOUNTER → 2023-06-12 | Outpatient (CLI) | payer MEDICARE ==
[2023-06-12 15:28] LABS: ALT 27 U/L (8-44); AST 26 U/L (13-35); Chol/HDL Ratio 1.98 Ratio; LDL Cholesterol,Calculated 31.2 mg/dL (0.0-131.0)
== END | disposition home or self-care (01) ==
LOC: LABWHC1 11:04
PROVIDERS: ATTEND Internal Medicine Interventional Cardiology
DX: E78.2 Mixed hyperlipidemia (principal)
CPT/HCPCS: 36415; 80061; 84450; 84460

== ENCOUNTER → 2023-09-19 | Outpatient (CLI) | payer MEDICARE ==
--- NOTE | 2023-09-19 13:35 | CTL ---
EXAMINATION TYPE: CT Low Dose Lung DATE OF EXAM ORDERED: 09/19/2023 HISTORY: Lung cancer screening CT DLP: 125.[address] CTDI: 3.5 mGy Automated exposure control for dose reduction was used. COMPARISON: 03/20/2018 TECHNIQUE: Low dose computed tomography scan was performed through the chest at 1 mm thick sections a nd reconstructed images in multiple planes at 1 mm and [address] DIAGNOSTIC QUALITY: Satisfactory FINDINGS: There is mild increase in the focal thickening of the minor fissure on the right. There is been inter fidel development of mild interstitial densities in the right lung base. There is no suspicious lung mass or nodule. There is no abnormal airspace/consolidative density. There is no pneumothorax or pleural effusion. The great vessels chest are normal and there is no mediastinal, hilar or axillary adenopathy. No focal osseous lesions are seen. Limited scanning the upper abdomen reveals postsurgical changes at the gastroesophageal junction with no other significant abnormality. IMPRESSION: 1. Mild increase in the focal thickening in the minor fissure on the right and an interstitial densit y in the right lung base. Follow-up CT thorax in 6 months is recommended to confirm stability. 2. Lung RADS category 3
== END | disposition home or self-care (01) ==
LOC: RADCTMAIN 11:33
PROVIDERS: ATTEND Internal Medicine
DX: Z12.2 Encounter for screening for malignant neoplasm of respiratory organs (principal); J98.4 Other disorders of lung; Z87.891 Personal history of nicotine dependence
CPT/HCPCS: 71271

== ENCOUNTER → 2023-11-15 | Outpatient (CLI) | payer MEDICARE ==
[2023-11-15 16:23] LABS: ALT 29 U/L (8-44); AST 24 U/L (13-35); Albumin 4.2 g/dL (3.8-4.9); Albumin/Globulin Ratio 1.68 Ratio (1.60-3.17); Alkaline Phosphatase 111 U/L (41-126); BUN/Creat Ratio 13.67 Ratio (12.00-20.00); Blood Urea Nitrogen 12.3 mg/dL (9.0-27.0); Calcium 10.1 mg/dL (8.7-10.3); Carbon Dioxide 25.5 mmol/L (21.6-31.8); Chloride 106 mmol/L (96-109); Chol/HDL Ratio 1.95 Ratio; Globulin 2.5 g/dL (1.6-3.3); Glucose 111 mg/dL (70-110); LDL Cholesterol,Calculated 27.4 mg/dL (0.0-131.0); Potassium 4.9 mmol/L (3.5-5.5); Sodium 143 mmol/L (135-145); Total Bilirubin 0.5 mg/dL (0.3-1.2); Total Protein 6.7 g/dL (6.2-8.2)
[2023-11-15 16:41] LABS: HCT 44.2 % (37.2-46.3); HGB 14.5 g/dL (12.0-15.0); MCHC 32.8 g/dL (32.0-37.0); MCV 94.6 FL (80.0-97.0); Mean Platelet Volume 11.8 FL (9.5-12.2); NRBC Per 100 WBC 0 X 10*3/uL (0.00-0.01); Platelet Count 391 X 10*3/uL (140-440); RBC 4.67 X 10*6/uL (4.10-5.20); RDW 12.6 % (11.5-14.5); WBC 8.78 X 10*3/uL (4.50-10.00)
== END | disposition home or self-care (01) ==
LOC: LABWHC1 11:58
PROVIDERS: ATTEND Nurse Practitioner Adult Health
DX: I10 Essential (primary) hypertension (principal); E78.2 Mixed hyperlipidemia; I48.0 Paroxysmal atrial fibrillation
CPT/HCPCS: 36415; 80053; 80061; 85027

== ENCOUNTER → 2024-02-28 | Outpatient (CLI) | payer MEDICARE ==
[2024-02-28 13:49] VITALS: BP 124/76; PULSE 68; RESP 16; TEMP 98.4
--- NOTE | 2024-02-28 14:20 | P.SLEEP ---
History of Present Illness DATE: 02/28/2024 CONSULTATION/NEW PATIENT EVALUATION HISTORY OF PRESENT ILLNESS/SLEEP-WAKE EVALUATION: 68-year-old lady had been ev aluated in the sleep center for possible obstructive sleep apnea hypopnea syndrome. Patient has history of obstructive sleep apnea diagnosed in our institution about 10 years ago. At that time patient was on treatment with CPAP, but for different reasons stopped treatment more than 5 years ago. SLEEP SCHEDULE: Usually sleep schedule from 11 PM to 10 AM. FALLING ASLEEP: Patient does have problems with falling asleep. DURING SLEEP: Patient snores, has episodes of stop breathing during the sleep and wakes up from sleep several times with 2 episodes of nocturia. No history of hypnogogical hallucinations, sleep paralysis, or cataplexy. DURING THE DAY/WAKE STATE: Patient feels sleepiness during the day. Tribune sleepiness scale is significantly increased to 16. Usually patient does not take naps although. PAST MEDICAL HISTORY: History of stroke x 2, hypertension, depression, polyarthritis, sinuses problems. PAST SURGICAL HISTORY: Hiatal hernia repair, cholecystectomy. MEDICATIONS: Please see below. SOCIAL HISTORY: Please see below. FAMILY HISTORY: Snoring, sleep apnea, hypertension, arthritis. REVIEW OF SYSTEMS: Snoring, multiple awakenings from sleep, sleepiness during the day. No fevers. No double vision. No recent chest pain. No shortness of breath. No abdominal pain. No bleeding episodes. No blood in urine. No seizure episodes. PHYSICAL EXAMINATION: GENERAL: A pleasant patient without any distress. VITAL SIGNS: Please see below, weight 198 pounds, body mass index 34.5. HEENT: PERRLA, EOMI. Evaluation of oropharynx showed tongue protrudes midline, low position of soft palate Mallampati 3. NECK: Supple. No JVD. Thyroid is not palpable. 15.5 inches in circumference. LUNGS: Clear to percussion and to auscultation. Good air exchange. No wheezing or rhonchi. HEART: S1, S2 regular. No murmurs, gallops or rubs. ABDOMEN: Soft and nontender. Bowel sounds are present. No organomegaly appreciated. EXTREMITIES: No clubbing or cyanosis. BURLAP MAN: Awake, alert, and oriented x3. Cranial nerves 2 to 7 intact. ASSESSMENT: 1. Snoring, multiple awakenings from sleep, low position of soft palate Mallampati 3, sleepiness with Tribune Sleepiness Scale 16, history of obstructive sleep apnea hypopnea syndrome in the past. Obstructive sleep apnea hypopnea syndrome. 2. History of stroke x 2. 3. Hypertension. 4. Status post thyroid resection for benign tumor. Hypothyroidism. 5 mild obesity, BMI 34.5. 6 . History of fibromyalgia. 7. Depression. 8. History of polyarthritis. 9 . Status post cholecystectomy. 10. Hyperlipidemia. PLAN: 1. Polysomnography for evaluation of patient's breathing during sleep. 2. Following plan after reading sleep study. 3. Preferable position during sleep on the side. 4. No driving if patient feels any sleepiness. Patient is aware of civil and criminal liability for unsafe driving. 5. Sleep hygiene with regular sleep time for at least 7.5-8 hours. 6. Watching and losing weight. Thank you very much for referring this patient for consultation. Sincerely, De Martinez MD, PhD, FAASM. Diplomat of [place] [employer], Sleep Medicine Board by [place] [employer] [employer] Irrigation Teacher of [facility] Past Medical History Past Medical History: Cancer, Hyperlipidemia, Hypertension, Osteoarthritis (OA), Sleep Apnea/CPAP/BIPAP, Thyroid Disorder Additional Past Medical History / Comment(s): Colitis, IBS, hx. Skin Cancer, frequent left foot & ankle swelling, urinary incontinence,. Recent Right side stroke April 01 2023. History of Any Multi-Drug Resistant Organisms: None Reported Past Surgical History: Bariatric Surgery, Cholecystectomy, Hernia Repair, Hysterectomy, Joint Replacement, Orthopedic Surgery, Tonsillectomy, Tubal Ligation Additional Past Surgical History / Comment(s): Partial Thyroidectomy, D&C., Hemmorroidectomy, left achilles tendon repair, right knee replacement, 06-15-16 [facility], 2019 Cataracts both eyes Past Anesthesia/Blood Transfusion Reactions: No Reported Reaction Past Psychological History: Depression Smoking Status: Former smoker Past Alcohol Use History: None Reported Additional Past Alcohol Use History / Comment(s): SMOKED FOR: 20 YRS PPD: 1/2 (QUIT SMOKING MARCH 28, 2016) Past Drug Use History: Marijuana Additional Drug Use History / Comment(s): marijauna miltonmy as a sleep aide at night - Past Family History Father Additional Family Medical History / Comment(s): Rheumatic fever causing from weak heart,sinus headache Mother Family Medical History: Diabetes Mellitus, Hypertension Medications and Allergies Home Medications Medication Instructions Recorded Confirmed Type Bisoprolol/Hydrochlorothiazide 1 tab PO DAILY 01/22/14 02/28/24 History [Ziac 10-6.25 MG] Escitalopram [Lexapro] 5 mg PO DAILY 04/01/23 02/28/24 History Levothyroxine Sodium [Synthroid] 112 mcg PO DAILY 04/01/23 02/28/24 History Multivitamins, Thera [Multivitamin 1 tab PO DAILY 04/01/23 02/28/24 History (formulary)] buPROPion [Wellbutrin] 100 mg PO DAILY 04/01/23 02/28/24 History lisinopriL [Zestril] 10 mg PO DAILY 04/01/23 02/28/24 History Apixaban [Eliquis] 5 mg PO BID #60 tab 04/05/23 02/28/24 Rx Atorvastatin [Lipitor] 40 mg PO HS #30 tab 04/05/23 02/28/24 Rx Allergies Allergy/AdvReac Type Severity Reaction Status Date / Time No Known Allergies Allergy Verified 04/12/23 13:17 Physical Exam Vitals: Vital Signs Temp Pulse Resp BP Pulse Ox 02/28/24 13:48 98.4 F 68 16 124/76 95 Intake and Output 02/27/24 02/28/24 02/28/24 22:59 06:59 14:59 Other: Weight 89.811 kg Sleep Note - Sleep Data ESS Total: 16 - Sleep Note Sleep Note: Temperature: 98.4 F Pulse Rate: 68 Respiratory Rate: 16 Blood Pressure: 124/76 SpO2: 95 Height: 5 ft 3.5 in Weight: 89.811 kg BMI: Neck Circumference: 15.5
== END ==
LOC: 3 N SLEEP 13:29
PROVIDERS: ATTEND Internal Medicine
DX: G47.33 Obstructive sleep apnea (adult) (pediatric) (principal); I10 Essential (primary) hypertension; E66.9 Obesity, unspecified; F32.A Depression, unspecified; E78.5 Hyperlipidemia, unspecified; E03.9 Hypothyroidism, unspecified; Z86.73 Personal history of transient ischemic attack (TIA), and cerebral infarction without residual deficits; Z98.890 Other specified postprocedural states; Z87.39 Personal history of other diseases of the musculoskeletal system and connective tissue; Z90.49 Acquired absence of other specified parts of digestive tract; Z68.35 Body mass index [BMI] 35.0-35.9, adult; Z85.850 Personal history of malignant neoplasm of thyroid; Z79.899 Other long term (current) drug therapy; Z79.01 Long term (current) use of anticoagulants; Z79.890 Hormone replacement therapy; Z87.891 Personal history of nicotine dependence
CPT/HCPCS: 99211

== ENCOUNTER 2024-03-04 19:28 | Outpatient (CLI) | payer MEDICARE ==
--- NOTE | 2024-03-07 18:01 | P.PCN ---
Description of Procedure: POLYSOMNOGRAPHY REPORT PROCEDURE(S)/DATE(S): Polysomnography 03/04/2024 CLINICAL: Patient has been seen in the sleep center for evaluation of obstructive sleep apnea-hypopnea syndrome. Please see my consultation. Sleep study has been done for evaluation of patient breathing during the sleep. PROCEDURE: The standard montage for clinical polysomnography included the electroencephalogram, the electrooculogram, the mentalis surface electromyography and Lead II cardiography. The respiratory battery consisted of measurements of nasal/buccal air flow, pressure transducer measurements from nose, thoracic and/or abdominal effort and intercostal surface electromyography. Video monitoring has been done to check for any parasomnia events. Nocturnal oxyhemoglobin saturations were obtained by finger oximetry. Step-olivas titration with positive airway pressure was utilized to control the respiratory events, if necessary. RESULTS: During the diagnostic sleep study sleep efficiency was extremely short 44.4%. Latency to sleep onset was extremely long 211.0 min. Sleep architecture showed stage NI was significantly increased to 22.4%, Delta sleep was absent 0%, REM sleep was extremely short only 1.4%. Respiratory channel showed 0 obstructive apneas, 0 mixed apneas, 0 central apneas, 19 hypopneas with lowest oxygen level 89%. Total apnea hypopnea index was 6.5. Heart rate was in the range between 53 and 59, average 56. EMG showed 2 periodic limb movements per hour with 2 micro-arousals per hour. IMPRESSIONS: 1. Obstructive sleep apnea hypopnea syndrome in mild range. 2. No significant periodic limb movements have been documented. 3. History of hypertension. 4. History of stroke x 2. Please see other impressions from consultation PLAN: 1. The patient will have AutoPAP treatment for correction of respiratory abnormalities during the sleep. 2. Losing weight program. 3. Sleep hygiene with regular time in bed for at least 7-1/2 hours. 4. No driving if feeling sleepiness. 5. I will see patient for follow-up visit to evaluate clinical response on treatment with CPAP, compliance with treatment and [place] adjustments related to mask fitting pressure and humidification. Thank you very much for allowing me to participate in the management of your patient. Sincerely, De Martinez MD, PhD, FAASM. Diplomat of [place] [employer], Sleep Medicine Board by [place] [employer] Clinical Trials Specialist of [facility] [place]
== END 2024-03-05 05:25 | disposition home or self-care (01) ==
LOC: 3 N SLEEP 19:28
PROVIDERS: ATTEND Internal Medicine
DX: G47.33 Obstructive sleep apnea (adult) (pediatric) (principal); I10 Essential (primary) hypertension; Z86.73 Personal history of transient ischemic attack (TIA), and cerebral infarction without residual deficits; Z79.899 Other long term (current) drug therapy; Z87.891 Personal history of nicotine dependence; Z79.01 Long term (current) use of anticoagulants
CPT/HCPCS: 95810